=== PATIENT | male | born 1945 | race Caucasian/White ===

== ENCOUNTER 2017-06-27 04:46 | Observation (INO) | payer MEDICARE, OTHER ==
[~2017-06-27] VITALS: Ht 177.8 cm; Wt 85.0 kg
[~2017-06-27 04:46] MED LIST: ACET325S8 PO; ASPI325T PO; FERR324T4 PO; MELA5CAP2 PO; NORV5TAB PO; PRAV40TA PO; PROT40TA PO; QUET50TA PO; TAMS0.4C67 PO; VENL75TA91 PO; VENL75XR PO; [UNRECOGNIZED DRUG - CODE] PO
[2017-06-27 05:07] VITALS: BP 105/71; PULSE 72; RESP 14; TEMP 98.5; O2SAT 96
--- NOTE | 2017-06-27 05:25 | PD ---
HPI Chief Complaint: Chest Pain Time Seen by Provider: 05:21 Travel History International Travel<30 days: No Contact w/Intl Traveler<30days: No Traveled to known affect area: No History of Present Illness HPI Patient is a 71-year-old male who lives in a [facility]. He says today he around 6 in the evening he went walking developed a sharp stabbing pain in his subxiphoid substernal area. It did not radiate he came back to the [facility] they gave him Tums and a sublingual nitroglycerin the pain went away temporarily. Then the return 1 more time and he took another sublingual nitroglycerin with temporary relief once again then he went to sleep and woke same pain this time it was a squeezing central left-sided pain I moments called he was given's 2 baby aspirin at the [facility] and then another 2 baby aspirin in the EMS and sublingual nitroglycerin en route. He arrives pain-free blood pressure is 105/60 heart rate is 92 first EKG is normal sinus rhythm patient is completely pain-free all his symptoms began 9 hours prior to arrival but it was coming and going over the last 9 hours PFS Past Medical History Arthritis: Yes (back) Asthma: No Autoimmune Disease: No Anxiety: Yes Depression: Yes Heart Rhythm Problems: No Cancer: No Cardiac Catheterization: Yes Cardiovascular Problems: No High Cholesterol: No Chemotherapy: No Chest Pain: No Congestive Heart Failure: No COPD: No Cerebrovascular Accident: Yes Diabetes: No Diminished Hearing: No Endocrine: No Gastrointestinal Disorders: Yes GERD: Yes (GERD) Genitourinary: No Hiatal Hernia: No Hypertension: Yes Immune Disorder: No Implanted Vascular Access Dvce: No Kidney Stones: No Musculoskeletal: No Neurologic: Yes Reproductive: No Respiratory: No Migraines: No Myocardial Infarction: Yes Radiation Therapy: No Renal Failure: No Seizures: No Sickle Cell Disease: No Sleep Apnea: No Thyroid Disease: No Ulcer: No Tetanus Vaccination: Unknown Influenza Vaccination: Yes Past Surgical History Abdominal Surgery: Yes (appendectomy) AICD: No Appendectomy: Yes Arteriovenous Shunt: No Cardiac Surgery: No Ear Surgery: No Endocrine Surgery: No Eye Surgery: No Genitourinary Surgery: No Gynecologic Surgery: No Insulin Pump: No Joint Replacement: No Neurologic Surgery: No Oral Surgery: No Pacemaker: No Thoracic Surgery: No Tonsillectomy: Yes Other Surgery: Yes Social History Alcohol Use: No Tobacco Use: No Substance Use: No Allergies-Medications (Allergen,Severity, Reaction): Coded Allergies: No Known Allergies (Unverified Allergy, Unknown, 06/27/17) Reported Meds & Prescriptions Reported Meds & Active Scripts Active Reported Seroquel (Quetiapine Fumarate) 100 Mg Tab 100 Mg PO HS Xanax (Alprazolam) 0.25 Mg Tab 0.25 Mg PO BID PRN Effexor (Venlafaxine HCl) 75 Mg Tab 150 Mg PO Q12H Tramadol (Tramadol HCl) 50 Mg Tab 50 Mg PO Q8H PRN Flomax (Tamsulosin HCl) 0.4 Mg Cap 0.4 Mg PO HS Seroquel (Quetiapine Fumarate) 25 Mg Tab 25 Mg PO DAILY Pravastatin 40 Mg Tab 40 Mg PO DAILY Ditropan (Oxybutynin Chloride) 5 Mg Tab 5 Mg PO Q12HR Omeprazole 20 Mg Tab 20 Mg PO DAILY Meloxicam 7.5 Mg Tab 7.5 Mg PO BID Finasteride 5 Mg Tab 5 Mg PO DAILY Do not crush. Ferrous Sulfate 325 Mg (65 Mg Iron) Tablet 325 Mg PO BIDPC Docusate Sodium 100 Mg Cap 100 Mg PO DAILY Tums (Calcium Carbonate (Antacid)) 500 Mg Chew 1,500 Mg CHEW TIDAC PRN Aspirin 325 Mg Tab 325 Mg PO DAILY Amlodipine (Amlodipine Besylate) 5 Mg Tab 5 Mg PO DAILY Review of Systems Except as stated in HPI: all other systems reviewed are Neg Cardiovascular: Positive: Chest Pain or Discomfort Physical Exam Narrative GENERAL: alert ox3 good historian no pain initial exam SKIN: Warm and dry. HEAD: Atraumatic. Normocephalic. EYES: Pupils equal and round. No scleral icterus. No injection or drainage. ENT: No nasal bleeding or discharge. Mucous membranes pink and moist. NECK: Trachea midline. No JVD. CARDIOVASCULAR: Regular rate and rhythm. RESPIRATORY: No accessory muscle use. Clear to auscultation. Breath sounds equal bilaterally. GASTROINTESTINAL: Abdomen soft, non-tender, nondistended. Hepatic and splenic margins not palpable. MUSCULOSKELETAL: Extremities without clubbing, cyanosis, or edema. No obvious deformities. NEUROLOGICAL: Awake and alert. No obvious cranial nerve deficits. Motor grossly within normal limits. Five out of 5 muscle strength in the arms and legs. Normal speech. PSYCHIATRIC: Appropriate mood and affect; insight and judgment normal. Data Data Last Documented VS Vital Signs Date Time Temp Pulse Resp B/P (MAP) Pulse Ox O2 Delivery O2 Flow Rate FiO2 06/27/17 05:07 98.5 72 14 105/71 (82) 96 Orders Orders Complete Blood Count With Diff (06/27/17 05:21) Comprehensive Metabolic Panel (06/27/17 05:21) Troponin I (06/27/17 05:21) Lipase (06/27/17 05:21) Chest, Single Ap (06/27/17 ) Admit Order (Ed Use Only) (06/27/17 06:37) Labs Laboratory Tests Test 06/27/17 05:15 White Blood Count 7.2 TH/MM3 Red Blood Count 4.32 MIL/MM3 Hemoglobin 12.8 GM/DL Hematocrit 38.1 % Mean Corpuscular Volume 88.1 FL Mean Corpuscular Hemoglobin 29.6 PG Mean Corpuscular Hemoglobin Concent 33.6 % Red Cell Distribution Width 14.3 % Platelet Count 244 TH/MM3 Mean Platelet Volume 7.1 FL Neutrophils (%) (Auto) 53.5 % Lymphocytes (%) (Auto) 27.8 % Monocytes (%) (Auto) 12.5 % Eosinophils (%) (Auto) 5.5 % Basophils (%) (Auto) 0.7 % Neutrophils # (Auto) 3.9 TH/MM3 Lymphocytes # (Auto) 2.0 TH/MM3 Monocytes # (Auto) 0.9 TH/MM3 Eosinophils # (Auto) 0.4 TH/MM3 Basophils # (Auto) 0.1 TH/MM3 CBC Comment DIFF FINAL Differential Comment Blood Urea Nitrogen 19 MG/DL Creatinine 1.25 MG/DL Random Glucose 76 MG/DL Total Protein 7.2 GM/DL Albumin 3.9 GM/DL Calcium Level 9.1 MG/DL Alkaline Phosphatase 85 U/L Aspartate Amino Transf (AST/SGOT) 19 U/L Alanine Aminotransferase (ALT/SGPT) 21 U/L Total Bilirubin 0.3 MG/DL Sodium Level 137 MEQ/L Potassium Level 3.8 MEQ/L Chloride Level 103 MEQ/L Carbon Dioxide Level 28.0 MEQ/L Anion Gap 6 MEQ/L Estimat Glomerular Filtration Rate 57 ML/MIN Troponin I LESS THAN 0.02 NG/ML Lipase 51 U/L [facility] Medical Decision Making Medical Screen Exam Complete: Yes Emergency Medical Condition: Yes Differential Diagnosis pt pain could be exertional ischemic angina , vs gerd vs esophogeal spasm vs muscle starin vs PNA vs pericarditis . other Narrative Course EKG no ischemic findings NSR and trop negative , RISK factors and Hx indicate Chest pain center admit. ASPIRIN given po Diagnosis Primary Impression: Chest pain Qualified Codes: R07.9 - Chest pain, unspecified Barney Bhagat MD Jun 27, 2017 05:25
[2017-06-27] MEDS ORDERED: MELO7.5T27 PO (06:01)
[2017-06-27] MEDS ORDERED: TRAM50TA PO (06:01)
[2017-06-27] MEDS ORDERED: TUMS500C CHEW (06:01)
[2017-06-27] MEDS ORDERED: PRAV40TA2 PO (06:01)
[2017-06-27] MEDS ORDERED: FINA5TAB2 PO (06:01)
[2017-06-27] MEDS ORDERED: TAMS5CAP PO (06:01)
[2017-06-27] MEDS ORDERED: SERO100T PO (06:01)
[2017-06-27] MEDS ORDERED: ASPI-183 PO (06:01)
[2017-06-27] MEDS ORDERED: OMEP20TA93 PO (06:01)
[2017-06-27] MEDS ORDERED: ALPR.25 PO (06:01)
[2017-06-27] MEDS ORDERED: DOCU100C15 PO (06:01)
[2017-06-27] MEDS ORDERED: SERO25TA PO (06:01)
[2017-06-27] MEDS ORDERED: OXYB5TAB8 PO (06:01)
[2017-06-27] MEDS ORDERED: VENL75TA PO (06:01)
[2017-06-27] MEDS ORDERED: AMLO5TAB2 PO (06:01)
[2017-06-27] MEDS ORDERED: FERR325T18 PO (06:01)
[2017-06-27 06:15] LABS: AUTOMATED NEUTROPHIL # 3.9 TH/MM3 (1.8-7.7); BASOPHIL # 0.1 TH/MM3 (0-0.2); BASOPHIL % 0.7 % (0.0-2.0); EOSINOPHIL # 0.4 TH/MM3 (0-0.4); EOSINOPHIL % 5.5 % (0.0-4.0); HEMATOCRIT 38.1 % (39.0-51.0); HEMOGLOBIN 12.8 GM/DL (13.0-17.0); LYMPH % 27.8 % (9.0-44.0); MEAN CELL VOLUME 88.1 FL (80.0-100.0); MEAN CORPUSCULAR HEMOGLOBIN 29.6 PG (27.0-34.0); MEAN CORPUSCULAR HGB CONC 33.6 % (32.0-36.0); MEAN PLATELET VOLUME 7.1 FL (7.0-11.0); MONO % 12.5 % (0.0-8.0); MONOCYTE # 0.9 TH/MM3 (0-0.9); NEUT % 53.5 % (16.0-70.0); PLATELET COUNT 244 TH/MM3 (150-450); RED BLOOD COUNT 4.32 MIL/MM3 (4.50-5.90); RED CELL DISTRIBUTION WIDTH 14.3 % (11.6-17.2); WHITE BLOOD COUNT 7.2 TH/MM3 (4.0-11.0)
--- NOTE | 2017-06-27 06:16 | RADRPT ---
EXAM DATE/TIME: 06/27/2017 05:41 [facility] COMPARISON: CHEST SINGLE AP, March 07, 2016, 9:10. INDICATIONS : Sudden onset chest pain MEDICAL HISTORY : Myocardial infarction. CVA SURGICAL HISTORY : Appendectomy. Tonsillectomy. ENCOUNTER: Initial ACUITY: 1 day PAIN SCORE: 7/10 LOCATION: Bilateral chest FINDINGS: A single view of the chest demonstrates the lungs to be symmetrically aerated without evidence of mas s, infiltrate or effusion. The cardiomediastinal contours are unremarkable. Osseous structures are intact. CONCLUSION: No acute disease. Alpesh Mendez MD on June 27, 2017 at 6:13 Board Certified Radiologist. This report was verified electronically.
[2017-06-27 06:29] LABS: ALBUMIN 3.9 GM/DL (3.4-5.0); AST (GOT) 19 U/L (15-37); BLOOD UREA NITROGEN 19 MG/DL (7-18); CALCIUM 9.1 MG/DL (8.5-10.1); CHLORIDE 103 MEQ/L (98-107); CREATININE 1.25 MG/DL (0.60-1.30); GLOMERULAR FILTRATION RATE 57 ML/MIN (>89); GLUCOSE,RANDOM 76 MG/DL (74-106); LIPASE 51 U/L (73-393); SODIUM (NA) 137 MEQ/L (136-145)
[2017-06-27 06:31] LABS: ALT (GPT) 21 U/L (12-78)
[2017-06-27 06:34] LABS: ALKALINE PHOSPHATASE 85 U/L (45-117); TOTAL BILIRUBIN ADULT 0.3 MG/DL (0.2-1.0); TOTAL PROTEIN 7.2 GM/DL (6.4-8.2); TROPONIN I LESS THAN 0.02 NG/ML (0.02-0.05)
[2017-06-27 06:44] VITALS: O2SAT 96
[2017-06-27] MEDS ORDERED: SODIUM CHLORIDE 0.9% FLUSH 10 ML FLUSH IV FLUSH PRN (06:45)
[2017-06-27] MEDS ORDERED: ACETAMINOPHEN 500 MG CPLT PO PRN (07:30)
[2017-06-27] MEDS ORDERED: ONDANSETRON HCL 4 MG/2 ML VIAL IV PUSH PRN (07:30)
[2017-06-27] MEDS ORDERED: NITROGLYCERIN 0.4 MG SL 25 TABS/BTL SL PRN (07:30)
[2017-06-27 08:48] VITALS: BP 110/68; PULSE 91; RESP 18; O2SAT 96
[2017-06-27] MEDS ORDERED: ASPIRIN 325 MG TAB PO SCH (09:00)
[2017-06-27] MEDS ORDERED: SODIUM CHLORIDE 0.9% FLUSH 10 ML FLUSH IV FLUSH SCH (09:00)
--- NOTE | 2017-06-27 09:05 | HHI.HP ---
[facility] Primary Care Physician Chris Holman M.D. Chief Complaint Chest pain History of Present Illness 71-year-old male with history of coronary artery disease, past angioplasties x2 , and GERD presents to ER for further evaluation of chest pain. Onset 1 week ago. Location substernal. Character "intense, sharp pain." Severity moderate, however last night episode prior to coming to ER severe in severity. No radiation of pain. Duration 10 minutes. Associated symptoms of mild dyspnea. Denied nausea, vomiting, or diaphoresis. Taking a deep breath did not make pain better or worse. Precipitating factors exertion. Relieving factors rest. Total 2 episodes yesterday and one episode daily for past week. Denies discomfort being similar to past cardiac discomfort or being similar to acid reflux. Currently he is chest pain free. Tried Tums with "some relief." Nitroglycerin SL helped "within one minute." Resides in an assisted living faculty. States he alerted the front services agent about chest pain and called [facility]. Endorses not following with a chucker as instructed last year after angioplasty because "I was feeling pretty good." Review of Systems General: No fatigue,weakness, fever, chills, recent illness, or change in appetite. Has been in his general state of health. HEENT: No , no vision changes, no nasal congestion or drainage, no dysphasia CV: As stated above. No current chest pain or pressure. History of CAD and CVA. RESP: No SOB, cough, wheeze, or recent URI. Former smoker. GI: No nausea, vomiting, bowel changes, diarrhea, constipation, pain, distention , melena, or blood in the stool. No unintentional weight gain or weight loss. History of GERD. Scheduled for EGD next week. : No dysuria, urgency, frequency. History of BPH, taking Flomax. EXT: No lower leg edema, no paraesthesias MS: No discomfort, change in ROM, injury, or recent trauma. NEURO: No difficulty with balance, LOC, motor/sensory deficits PSYCH: History of depression, no anxiety or suicidal ideation SKIN: No rashes, no concerning lesions Past Family Social History Allergies: Coded Allergies: No Known Allergies (Unverified Allergy, Unknown, 06/27/17) Past Medical History Coronary artery disease, 2 SD, CVA, BPH, depression, GERD, hyperlipidemia Past Surgical History Appendectomy, x2 cardiac angioplasties Reported Medications Reported Meds & Active Scripts Active Reported Seroquel (Quetiapine Fumarate) 100 Mg Tab 100 Mg PO HS Xanax (Alprazolam) 0.25 Mg Tab 0.25 Mg PO BID PRN Effexor (Venlafaxine HCl) 75 Mg Tab 150 Mg PO Q12H Tramadol (Tramadol HCl) 50 Mg Tab 50 Mg PO Q8H PRN Flomax (Tamsulosin HCl) 0.4 Mg Cap 0.4 Mg PO HS Seroquel (Quetiapine Fumarate) 25 Mg Tab 25 Mg PO DAILY Pravastatin 40 Mg Tab 40 Mg PO DAILY Ditropan (Oxybutynin Chloride) 5 Mg Tab 5 Mg PO Q12HR Omeprazole 20 Mg Tab 20 Mg PO DAILY Meloxicam 7.5 Mg Tab 7.5 Mg PO BID Finasteride 5 Mg Tab 5 Mg PO DAILY Do not crush. Ferrous Sulfate 325 Mg (65 Mg Iron) Tablet 325 Mg PO BIDPC Docusate Sodium 100 Mg Cap 100 Mg PO DAILY Tums (Calcium Carbonate (Antacid)) 500 Mg Chew 1,500 Mg CHEW TIDAC PRN Aspirin 325 Mg Tab 325 Mg PO DAILY Amlodipine (Amlodipine Besylate) 5 Mg Tab 5 Mg PO DAILY Active Ordered Medications Current Medications Medications (Trade) Dose Ordered Sig/[place] Route Start Time Stop Time Status Last Admin (NS Flush) 2 ml UNSCH PRN IV FLUSH 06/27/17 06:45 (NS Flush) 2 ml BID IV FLUSH 06/27/17 09:00 (Tylenol) 500 mg Q4H PRN PO 06/27/17 07:30 (Zofran Inj) 4 mg Q6H PRN IV PUSH 06/27/17 07:30 (Nitrostat Sl) 0.4 mg Q5M PRN SL 06/27/17 07:30 (Aspirin) 325 mg DAILY PO 06/27/17 09:00 Family History Noncontributory for early onset cardiovascular disease Social History Known coronary artery disease, hypertension, and hyperlipidemia. No known diabetes. Former smoker quitting 20 years ago. Denies any alcohol or illegal drug use. . Endorses an active lifestyle, brisk walking daily. Past cardiac testing No recent cardiac testing. Does not follow with chucker. Cardiac catheterization approx. 1 and 2 years ago, angioplasty during both catheterizations, no stents. Physical Exam Vital Signs Vital Signs Date Time Temp Pulse Resp B/P (MAP) Pulse Ox O2 Delivery O2 Flow Rate FiO2 06/27/17 08:48 91 18 110/68 (82) 96 Room Air 06/27/17 06:44 96 06/27/17 05:07 98.5 72 14 105/71 (82) 96 Physical Exam GENERAL: Alert WN, WD, NAD, pleasant, male HEAD: NC, AT EYES: Sclera clear, conjunctiva without injection, pupils equal and round ENT: Mucous membranes pink and moist CV: RRR, without murmur, rub, gallop, no JVD, S1-S2 no S3-S4. No carotid bruits. Chest wall nontender with palpation. RESP: Clear lungs throughout bilateral, no crackles, wheeze, rhonchi, symmetrical chest rise, nonlabored, able to speak in full sentences ABD: Soft, NT, ND, no masses, positive bowel tones EXT: Pulses +24, no dependent edema MS: Normal tone 4 extremities, no obvious deformities, full range of motion NEURO: CN II through CN XII grossly intact, motor strength 5/5 PSYCH: A+O 3, pleasant affect, appropriate speech, mood, insight and judgment SKIN: Normal turgor, normal texture, no lesions, no rashes, brisk cap refill, even hair distribution Laboratory Laboratory Tests Test 06/27/17 05:15 White Blood Count 7.2 Red Blood Count 4.32 Hemoglobin 12.8 Hematocrit 38.1 Mean Corpuscular Volume 88.1 Mean Corpuscular Hemoglobin 29.6 Mean Corpuscular Hemoglobin Concent 33.6 Red Cell Distribution Width 14.3 Platelet Count 244 Mean Platelet Volume 7.1 Neutrophils (%) (Auto) 53.5 Lymphocytes (%) (Auto) 27.8 Monocytes (%) (Auto) 12.5 Eosinophils (%) (Auto) 5.5 Basophils (%) (Auto) 0.7 Neutrophils # (Auto) 3.9 Lymphocytes # (Auto) 2.0 Monocytes # (Auto) 0.9 Eosinophils # (Auto) 0.4 Basophils # (Auto) 0.1 CBC Comment DIFF FINAL Differential Comment Blood Urea Nitrogen 19 Creatinine 1.25 Random Glucose 76 Total Protein 7.2 Albumin 3.9 Calcium Level 9.1 Alkaline Phosphatase 85 Aspartate Amino Transf (AST/SGOT) 19 Alanine Aminotransferase (ALT/SGPT) 21 Total Bilirubin 0.3 Sodium Level 137 Potassium Level 3.8 Chloride Level 103 Carbon Dioxide Level 28.0 Anion Gap 6 Estimat Glomerular Filtration Rate 57 Troponin I LESS THAN 0.02 Lipase 51 Result Diagram: 06/27/17 0515 06/27/17 0515 Imaging Last 48 hours Impressions Chest X-Ray 06/27/17 0000 Signed Impressions: Service Date/Time: Tuesday, June 27, 2017 05:41 - CONCLUSION: No acute disease. Alpesh Mendez MD Course EKG Sinus rhythm, left axis deviation, incomplete right bundle branch block, no ST changes Caprini VTE Risk Assessment Caprini VTE Risk Assessment: Mod/High Risk (score >= 2) Caprini Risk Assessment Model Point Value = 1 Point Value = 2 Point Value = 3 Point Value = 5 Age 41-60 Minor surgery BMI > 25 kg/m2 Swollen legs Varicose veins or History of unexplained or recurrent spontaneous Oral contraceptives or hormone replacement Sepsis (< 1 month) Serious lung disease, including pneumonia (< 1 month) Abnormal pulmonary function Acute myocardial infarction Congestive heart failure (< 1 month) History of inflammatory bowel disease Medical patient at bed rest Age 61-74 Arthroscopic surgery Major open surgery (> 45 min) Laparoscopic surgery (> 45 min) Malignancy Confined to bed (> 72 hours) Immobilizing plaster cast Central venous access Age >= 75 History of VTE Family history of VTE Factor V Leiden Prothrombin [id number] Lupus anticoagulant Anticardiolipin antibodies Elevated serum homocysteine Heparin-induced thrombocytopenia Other congenital or acquired thrombophilia Stroke (< 1 month) Elective arthroplasty Hip, pelvis, or leg fracture Acute spinal cord injury (< 1 month) Prophylaxis Regimen Total Risk Factor Score Risk Level Prophylaxis Regimen 0-1 Low Early ambulation 2 Moderate Order ONE of the following: *Sequential Compression Device (SCD) *Heparin 5000 units SQ BID 3-4 Higher Order ONE of the following medications: *Heparin 5000 units SQ TID *Enoxaparin/Lovenox 40 mg SQ daily (WT < 150 kg, CrCl > 30 mL/min) *Enoxaparin/Lovenox 30 mg SQ daily (WT < 150 kg, CrCl > 10-29 mL/min) *Enoxaparin/Lovenox 30 mg SQ BID (WT < 150 kg, CrCl > 30 mL/min) AND/OR *Sequential Compression Device (SCD) 5 or more Highest Order ONE of the following medications: *Heparin 5000 units SQ TID (Preferred with Epidurals) *Enoxaparin/Lovenox 40 mg SQ daily (WT < 150 kg, CrCl > 30 mL/min) *Enoxaparin/Lovenox 30 mg SQ daily (WT < 150 kg, CrCl > 10-29 mL/min) *Enoxaparin/Lovenox 30 mg SQ BID (WT < 150 kg, CrCl > 30 mL/min) AND *Sequential Compression Device (SCD) Assessment and Plan Assessment and Plan #1 Chest pain-admitted to chest pain center. Rule out with 3 sets of ekgs and cardiac enzymes. Seen and evaluated by Dr. Eric Garcia. Proceed with chemical stress testing after being ruled out this afternoon. If unremarkable, plan to discharge home with follow up with PCP. Patient agreeable to plan of care. #2 History of CAD-obtain cardiac catheterization records from [facility] [place] , strongly encouraged regardless of this admission testing he needs to establish with a chucker. Verbalized understanding. Continue Pravachol, aspirin, and amlodipine. #3 GERD-continue Protonix, encouraged him to keep scheduled EGD appointment next week #4 History of depression-continue Effexor and quetiapine Lilliam Vu Jun 27, 2017 09:05
[2017-06-27 10:13] LABS: TROPONIN I LESS THAN 0.02 NG/ML (0.02-0.05)
[2017-06-27 10:44] VITALS: BP 138/71; PULSE 71
[2017-06-27] MEDS ORDERED: VENLAFAXINE HCL XR 75 MG CAP PO SCH (11:00)
[2017-06-27] MEDS ORDERED: PANTOPRAZOLE SOD 20 MG DELAYED RELEASE TAB PO SCH (12:00)
[2017-06-27 12:18] LABS: TROPONIN I LESS THAN 0.02 NG/ML (0.02-0.05)
[2017-06-27 13:00] VITALS: BP 155/100; PULSE 73; RESP 18; TEMP 96.6; O2SAT 95
--- NOTE | 2017-06-27 13:35 | EKG ---
Date Performed: 06/27/2017 Time Performed: 09:21:02 PTAGE: 71 years EKG: Sinus rhythm WITH FIRST DEGREE AV BLOCK WITH OCCASIONAL SUPRAVENTRICULAR PREMATURE COMPLEXES INCOMPLETE RIGHT BUN DLE BRANCH BLOCK ABNORMAL ECG PREVIOUS TRACING : 06/27/2017 04.58 Since previous tracing, no significant change noted DOCTOR: Eric Garcia Interpretating Date/Time 06/27/2017 13:33:13
--- NOTE | 2017-06-27 13:38 | EKG ---
Date Performed: 06/27/2017 Time Performed: 04:58:52 PTAGE: 71 years EKG: Sinus rhythm WITH FIRST DEGREE AV BLOCK WITH OCCASIONAL VENTRICULAR PREMATURE COMPLEXES MARKED LEFT AXIS DEVIATIO N INCOMPLETE RIGHT BUNDLE BRANCH BLOCK ABNORMAL ECG PREVIOUS TRACING : 03/07/2016 09.39 Since previous tracing, no significant change noted DOCTOR: Eric Garcia Interpretating Date/Time 06/27/2017 13:37:00
--- NOTE | 2017-06-27 13:49 | EKG ---
Date Performed: 06/27/2017 Time Performed: 11:29:51 PTAGE: 71 years EKG: Sinus rhythm WITH FIRST DEGREE AV BLOCK MARKED LEFT AXIS DEVIATION INCOMPLETE RIGHT BUNDLE BRANCH BLOCK ABNORMAL ECG PREVIOUS TRACING : 06/27/2017 09.21 Since previous tracing, no significant change noted DOCTOR: Eric Garcia Interpretating Date/Time 06/27/2017 13:48:03
[2017-06-27] MEDS ORDERED: REGADENOSON INJ 0.4 MG/5 ML SYR ONE (14:12)
--- NOTE | 2017-06-27 15:16 | RADRPT ---
EXAM DATE/TIME: 06/27/2017 13:57 [facility] COMPARISON: No previous studies available for comparison. INDICATIONS : Mid chest pain for one week. Angina. Myocardial infarction. DOSE: 26.5 mCi Tc99m Myoview at stress. 8.7 mCi Tc99m Myoview at rest. 0.4 mg Lexiscan STRESS SYMPTOMS: None. EJECTION FRACTION: > 70% MEDICAL HISTORY : Hypertension. Cardiovascular disease SURGICAL HISTORY : Tonsillectomy. ENCOUNTER: Initial ACUITY: 1 day PAIN SCALE: 3/10 LOCATION: Bilateral chest TECHNIQUE: The patient underwent pharmacologic stress with infusion of prescribed dose. Continuous ECG tracing was monitored during stress. Gated SPECT imaging was performed after stress and conventional SPECT i maging was performed at rest. The examination was performed on a SPECT/CT scanner, both attenuation and non-corrected datasets were reviewed. FINDINGS: DISTRIBUTION: The maximum perfused segment at stress is in the septal wall. PERFUSION STUDY: The pattern of perfusion at stress is within normal limits. GATED STUDY: There is intact wall motion and thickening without hypokinetic or dyskinetic segments. CONCLUSION: 1. Unremarkable myocardial perfusion exam RISK CATEGORY: Low Leo Copeland MD on June 27, 2017 at 15:12 Board Certified Radiologist. This report was verified electronically.
[2017-06-27 15:19] VITALS: PULSE 81
--- NOTE | 2017-06-27 15:29 | HHI.DCPOC ---
Discharge Care Plan Diagnosis: (1) Atypical chest pain (2) Hx of coronary artery disease Goals to Promote Your Health * To prevent worsening of your condition and complications * To maintain your health at the optimal level Directions to Meet Your Goals Take your medications as prescribed Follow your dietary instruction Follow activity as directed Keep your appointments as scheduled Take your immunizations and boosters as scheduled If your symptoms worsen call your PCP, if no PCP go to Urgent Care Center or Emergency Room Smoking is Dangerous to Your Health. Avoid second hand smoke Call the 24-hour hour crisis hotline for domestic abuse at Lilliam Vu Jun 27, 2017 15:29
[2017-06-28] MEDS ORDERED: amLODIPine BESYLATE 5 MG TAB PO SCH (09:00)
--- NOTE | 2017-06-28 15:35 | TR ---
Date Performed: 06/27/2017 Time Performed: 14:18:21 DOCTOR: Justice Sexton DRUG LIST: CLINICAL HISTORY: REASON FOR TEST: REASON FOR ENDING: OBSERVATION: CONCLUSION: Lexiscan stress test was performed under standard four minute protocol. Radionuclid e was injected one minute prior to ending the test. No electrocardiographic abormalities were present to suggest ischemia. Nuclear imaging and interpretation are pending. COMMENTS:
== END 2017-06-27 17:34 | disposition home or self-care (01) ==
LOC: NEPC 04:46 → NEDA 06:38 → NEDH 11:16 → NEPFCDU 12:52
DX: R07.9 Chest pain, unspecified (principal); I25.10 Atherosclerotic heart disease of native coronary artery without angina pectoris; I10 Essential (primary) hypertension; I45.10 Unspecified right bundle-branch block; E78.5 Hyperlipidemia, unspecified; I25.2 Old myocardial infarction; K21.9 Gastro-esophageal reflux disease without esophagitis; N40.0 Benign prostatic hyperplasia without lower urinary tract symptoms; Z87.891 Personal history of nicotine dependence; Z86.73 Personal history of transient ischemic attack (TIA), and cerebral infarction without residual deficits
CPT/HCPCS: 71045; 78452; 80053; 82550; 83690; 84484; 85025; 93005; 93017; 99285; A9502; G0378; J2785

== ENCOUNTER 2017-08-24 03:52 | Emergency (ER) | payer MEDICARE, OTHER ==
[~2017-08-24 03:52] MED LIST changes: -ACET325S8 PO; +ALPR.25 PO; +AMLO5TAB2 PO; +ASPI-183 PO; -ASPI325T PO; +DOCU100C15 PO; -FERR324T4 PO; +FERR325T18 PO; +FINA5TAB2 PO; -MELA5CAP2 PO; +MELO7.5T27 PO; -NORV5TAB PO; +OMEP20TA93 PO; +OXYB5TAB8 PO; -PRAV40TA PO; +PRAV40TA2 PO; -PROT40TA PO; -QUET50TA PO; +SERO100T PO; +SERO25TA PO; -TAMS0.4C67 PO; +TAMS5CAP PO; +TRAM50TA PO; +TUMS500C CHEW; +VENL75TA PO; -VENL75TA91 PO; -VENL75XR PO; -[UNRECOGNIZED DRUG - CODE] PO
[2017-08-24 04:15] VITALS: BP 120/72; PULSE 100; RESP 16; TEMP 98; O2SAT 98
[2017-08-24 05:22] LABS: AUTOMATED NEUTROPHIL # 7.3 TH/MM3 (1.8-7.7); BASOPHIL % 0.2 % (0.0-2.0); HEMATOCRIT 37.8 % (39.0-51.0); HEMOGLOBIN 12.8 GM/DL (13.0-17.0); LYMPH % 5.7 % (9.0-44.0); LYMPHOCYTE # 0.5 TH/MM3 (1.0-4.8); MEAN CELL VOLUME 87.7 FL (80.0-100.0); MEAN CORPUSCULAR HEMOGLOBIN 29.7 PG (27.0-34.0); MEAN CORPUSCULAR HGB CONC 33.8 % (32.0-36.0); MEAN PLATELET VOLUME 7.6 FL (7.0-11.0); MONO % 11.7 % (0.0-8.0); NEUT % 82.4 % (16.0-70.0); PLATELET COUNT 212 TH/MM3 (150-450); RED BLOOD COUNT 4.31 MIL/MM3 (4.50-5.90); RED CELL DISTRIBUTION WIDTH 14.5 % (11.6-17.2); WHITE BLOOD COUNT 8.9 TH/MM3 (4.0-11.0)
[2017-08-24 05:39] LABS: ALT (GPT) 19 U/L (12-78); AST (GOT) 21 U/L (15-37); BICARBONATE 22.6 MEQ/L (21.0-32.0); BLOOD UREA NITROGEN 22 MG/DL (7-18); CALCIUM 9.3 MG/DL (8.5-10.1); CHLORIDE 101 MEQ/L (98-107); GLOMERULAR FILTRATION RATE 50 ML/MIN (>89); GLUCOSE,RANDOM 86 MG/DL (74-106); SODIUM (NA) 136 MEQ/L (136-145)
[2017-08-24 05:49] LABS: ALKALINE PHOSPHATASE 70 U/L (45-117); TOTAL BILIRUBIN ADULT 0.5 MG/DL (0.2-1.0); TOTAL PROTEIN 7.9 GM/DL (6.4-8.2)
[2017-08-24 05:55] LABS: BILIRUBIN, URINE NEG (NEG); BLOOD, URINE SMALL (NEG); GLUCOSE,URINE NEG (NEG); HYALINE CAST, URINE 3 /lpf (RARE); KETONE, URINE 10 mg/dL (NEG); MUCUS URINE FEW /lpf (OCC); NITRITE,URINE NEG (NEG); PH, URINE 5.5 (5.0-8.5); SQUAMOUS EPITHELIAL CELL URINE <1 /hpf (0-5); URINE COLOR YELLOW (YELLW/STRAW); URINE LEUKOCYTE ESTERASE NEG (NEG)
[2017-08-24] MEDS ORDERED: ALUMINUM/MAGNESIUM/SIMETH 30 ML CUP PO ONE ×2 (06:00→11:00)
[2017-08-24] MEDS ORDERED: ONDANSETRON ODT 4 MG TAB PO ONE (06:00)
--- NOTE | 2017-08-24 06:36 | PD ---
HPI Chief Complaint: Psychiatric Symptoms Time Seen by Provider: 04:37 Travel History International Travel<30 days: No Contact w/Intl Traveler<30days: No Traveled to known affect area: No History of Present Illness HPI 71-year-old white male presents emergency department stating that he is feeling depressed and wants to be with his . She had 2 years ago this past week. She had Alzheimer's dementia. The patient states that he is tired of living without her. He admits to feeling suicidal but has no current plan. He does live in a nursing facility. He recently had a endoscopy last week for GERD. He had an episode of nausea with vomiting of mucus this evening. He has had some mild epigastric discomfort. He has requested some Tums. Patient denies any toxic ingestions. No homicidal ideation. Symptoms are moderate. No alleviating factors. Exacerbated by his 's anniversary of her . PFSH Past Medical History Arthritis: Yes (back) Asthma: No Autoimmune Disease: No Anxiety: Yes Depression: Yes Heart Rhythm Problems: No Cancer: No Cardiac Catheterization: Yes Cardiovascular Problems: No High Cholesterol: Yes Chemotherapy: No Chest Pain: No Congestive Heart Failure: No COPD: No Cerebrovascular Accident: Yes Diabetes: No Diminished Hearing: No Endocrine: No Gastrointestinal Disorders: Yes GERD: Yes (GERD) Genitourinary: No Hiatal Hernia: No Hypertension: Yes Immune Disorder: No Implanted Vascular Access Dvce: No Kidney Stones: No Musculoskeletal: No Neurologic: Yes Reproductive: No Respiratory: No Immunizations Current: No Migraines: No Myocardial Infarction: Yes Radiation Therapy: No Renal Failure: No Seizures: No Sickle Cell Disease: No Sleep Apnea: No Thyroid Disease: No Ulcer: No Past Surgical History Abdominal Surgery: Yes (appendectomy) AICD: No Appendectomy: Yes Arteriovenous Shunt: No Cardiac Surgery: No Ear Surgery: No Endocrine Surgery: No Eye Surgery: No Genitourinary Surgery: No Gynecologic Surgery: No Insulin Pump: No Joint Replacement: No Neurologic Surgery: No Oral Surgery: No Pacemaker: No Thoracic Surgery: No Tonsillectomy: Yes Other Surgery: Yes Social History Alcohol Use: No Tobacco Use: No Substance Use: No Allergies-Medications (Allergen,Severity, Reaction): Coded Allergies: No Known Allergies (Unverified Allergy, Unknown, 08/24/17) Reported Meds & Prescriptions Reported Meds & Active Scripts Active Reported Seroquel (Quetiapine Fumarate) 100 Mg Tab 100 Mg PO HS Xanax (Alprazolam) 0.25 Mg Tab 0.25 Mg PO BID PRN Effexor (Venlafaxine HCl) 75 Mg Tab 150 Mg PO Q12H Tramadol (Tramadol HCl) 50 Mg Tab 50 Mg PO Q8H PRN Flomax (Tamsulosin HCl) 0.4 Mg Cap 0.4 Mg PO HS Seroquel (Quetiapine Fumarate) 25 Mg Tab 25 Mg PO DAILY Pravastatin 40 Mg Tab 40 Mg PO DAILY Ditropan (Oxybutynin Chloride) 5 Mg Tab 5 Mg PO Q12HR Omeprazole 20 Mg Tab 20 Mg PO DAILY Meloxicam 7.5 Mg Tab 7.5 Mg PO BID Finasteride 5 Mg Tab 5 Mg PO DAILY Do not crush. Ferrous Sulfate 325 Mg (65 Mg Iron) Tablet 325 Mg PO BIDPC Docusate Sodium 100 Mg Cap 100 Mg PO DAILY Tums (Calcium Carbonate (Antacid)) 500 Mg Chew 1,500 Mg CHEW TIDAC PRN Aspirin 325 Mg Tab 325 Mg PO DAILY Amlodipine (Amlodipine Besylate) 5 Mg Tab 5 Mg PO DAILY Review of Systems General / Constitutional: No: Fever Eyes: No: Visual changes HENT: No: Headaches Cardiovascular: No: Chest Pain or Discomfort Respiratory: No: Shortness of Breath Gastrointestinal: Positive: Nausea, Vomiting, Abdominal Pain (Epigastric tenderness) Genitourinary: No: Dysuria Musculoskeletal: No: Pain Skin: No Rash Neurologic: Positive: Focal Abnormalities (Left upper extremity weakness), Other (Chronic gait disturbance uses a walker.), No: Weakness Psychiatric: Positive: Depression, Suicidal Ideations, Mood Disorder, No: Anxiety, Disorder of Thought, Substance Abuse, Homicidal Ideation Endocrine: No: Polydipsia Hematologic/Lymphatic: No: Easy Bruising Physical Exam Narrative GENERAL: Well-nourished, well-developed patient. SKIN: Warm and dry. HEAD: Normocephalic and atraumatic. EYES: No scleral icterus. No injection or drainage. ENT: No nasal drainage noted. Mucous membranes pink. Airway patent. NECK: Supple, trachea midline. Moves head freely without obvious discomfort. CARDIOVASCULAR: Regular rate and rhythm without murmurs, gallops, or rubs. RESPIRATORY: Breath sounds equal bilaterally. No accessory muscle use. GASTROINTESTINAL: Abdomen soft, non-tender, nondistended. EXTREMITIES: No cyanosis or edema. BACK: Nontender without obvious deformity. No CVA tenderness. NEURO: Patient is alert and oriented. Patient has mild left upper extremity weakness. Patient has some generalized lower extremity weakness without focality. Right upper extremity is within limits. Normal speech. PSYCH: No delusions. No auditory or visual hallucinations. Data Data Last Documented VS Vital Signs Date Time Temp Pulse Resp B/P (MAP) Pulse Ox O2 Delivery O2 Flow Rate FiO2 08/24/17 04:15 98.0 100 16 120/72 (88) 98 Orders Orders Complete Blood Count With Diff (08/24/17 04:37) Comprehensive Metabolic Panel (08/24/17 04:37) Thyroid Stimulating Hormone (08/24/17 04:37) Urinalysis - C+S If Indicated (08/24/17 04:37) Psych Screen (08/24/17 04:37) Drug Screen, Random Urine (08/24/17 04:37) Alcohol (Ethanol) (08/24/17 04:37) Lipase (08/24/17 04:46) Al-Mag Hy-Si 40-40-4 Mg/Ml Liq (Mag-Al P (08/24/17 06:00) Ondansetron Odt (Zofran Odt) (08/24/17 06:00) Labs Laboratory Tests Test 08/24/17 04:45 08/24/17 05:15 White Blood Count 8.9 TH/MM3 Red Blood Count 4.31 MIL/MM3 Hemoglobin 12.8 GM/DL Hematocrit 37.8 % Mean Corpuscular Volume 87.7 FL Mean Corpuscular Hemoglobin 29.7 PG Mean Corpuscular Hemoglobin Concent 33.8 % Red Cell Distribution Width 14.5 % Platelet Count 212 TH/MM3 Mean Platelet Volume 7.6 FL Neutrophils (%) (Auto) 82.4 % Lymphocytes (%) (Auto) 5.7 % Monocytes (%) (Auto) 11.7 % Eosinophils (%) (Auto) 0.0 % Basophils (%) (Auto) 0.2 % Neutrophils # (Auto) 7.3 TH/MM3 Lymphocytes # (Auto) 0.5 TH/MM3 Monocytes # (Auto) 1.0 TH/MM3 Eosinophils # (Auto) 0.0 TH/MM3 Basophils # (Auto) 0.0 TH/MM3 CBC Comment DIFF FINAL Differential Comment Blood Urea Nitrogen 22 MG/DL Creatinine 1.40 MG/DL Random Glucose 86 MG/DL Total Protein 7.9 GM/DL Albumin 4.0 GM/DL Calcium Level 9.3 MG/DL Alkaline Phosphatase 70 U/L Aspartate Amino Transf (AST/SGOT) 21 U/L Alanine Aminotransferase (ALT/SGPT) 19 U/L Total Bilirubin 0.5 MG/DL Sodium Level 136 MEQ/L Potassium Level 4.2 MEQ/L Chloride Level 101 MEQ/L Carbon Dioxide Level 22.6 MEQ/L Anion Gap 12 MEQ/L Estimat Glomerular Filtration Rate 50 ML/MIN Lipase 43 U/L Thyroid Stimulating Hormone 3rd Gen 0.936 uIU/ML Ethyl Alcohol Level LESS THAN 3 MG/DL Urine Color YELLOW Urine Turbidity CLEAR Urine pH 5.5 Urine Specific [place] 1.036 Urine Protein 100 mg/dL Urine Glucose (UA) NEG mg/dL Urine Ketones 10 mg/dL Urine Occult Blood SMALL Urine Nitrite NEG Urine Bilirubin NEG Urine Urobilinogen 2.0 MG/DL Urine Leukocyte Esterase NEG Urine RBC 1 /hpf Urine WBC LESS THAN 1 /hpf Urine Squamous Epithelial Cells <1 /hpf Urine Hyaline Casts 3 /lpf Urine Mucus FEW /lpf Microscopic Urinalysis Comment CULT NOT INDICATED Urine Opiates Screen NEG Urine Barbiturates Screen NEG Urine Amphetamines Screen NEG Urine Benzodiazepines Screen POS Urine Cocaine Screen NEG Urine Cannabinoids Screen NEG MDM Medical Decision Making Medical Screen Exam Complete: Yes Emergency Medical Condition: Yes Medical Record Reviewed: Yes Interpretation(s) Laboratory Tests Test 08/24/17 04:45 08/24/17 05:15 White Blood Count 8.9 TH/MM3 Red Blood Count 4.31 MIL/MM3 Hemoglobin 12.8 GM/DL Hematocrit 37.8 % Mean Corpuscular Volume 87.7 FL Mean Corpuscular Hemoglobin 29.7 PG Mean Corpuscular Hemoglobin Concent 33.8 % Red Cell Distribution Width 14.5 % Platelet Count 212 TH/MM3 Mean Platelet Volume 7.6 FL Neutrophils (%) (Auto) 82.4 % Lymphocytes (%) (Auto) 5.7 % Monocytes (%) (Auto) 11.7 % Eosinophils (%) (Auto) 0.0 % Basophils (%) (Auto) 0.2 % Neutrophils # (Auto) 7.3 TH/MM3 Lymphocytes # (Auto) 0.5 TH/MM3 Monocytes # (Auto) 1.0 TH/MM3 Eosinophils # (Auto) 0.0 TH/MM3 Basophils # (Auto) 0.0 TH/MM3 CBC Comment DIFF FINAL Differential Comment Blood Urea Nitrogen 22 MG/DL Creatinine 1.40 MG/DL Random Glucose 86 MG/DL Total Protein 7.9 GM/DL Albumin 4.0 GM/DL Calcium Level 9.3 MG/DL Alkaline Phosphatase 70 U/L Aspartate Amino Transf (AST/SGOT) 21 U/L Alanine Aminotransferase (ALT/SGPT) 19 U/L Total Bilirubin 0.5 MG/DL Sodium Level 136 MEQ/L Potassium Level 4.2 MEQ/L Chloride Level 101 MEQ/L Carbon Dioxide Level 22.6 MEQ/L Anion Gap 12 MEQ/L Estimat Glomerular Filtration Rate 50 ML/MIN Lipase 43 U/L Thyroid Stimulating Hormone 3rd Gen 0.936 uIU/ML Ethyl Alcohol Level LESS THAN 3 MG/DL Urine Color YELLOW Urine Turbidity CLEAR Urine pH 5.5 Urine Specific [place] 1.036 Urine Protein 100 mg/dL Urine Glucose (UA) NEG mg/dL Urine Ketones 10 mg/dL Urine Occult Blood SMALL Urine Nitrite NEG Urine Bilirubin NEG Urine Urobilinogen 2.0 MG/DL Urine Leukocyte Esterase NEG Urine RBC 1 /hpf Urine WBC LESS THAN 1 /hpf Urine Squamous Epithelial Cells <1 /hpf Urine Hyaline Casts 3 /lpf Urine Mucus FEW /lpf Microscopic Urinalysis Comment CULT NOT INDICATED Urine Opiates Screen NEG Urine Barbiturates Screen NEG Urine Amphetamines Screen NEG Urine Benzodiazepines Screen POS Urine Cocaine Screen NEG Urine Cannabinoids Screen NEG Differential Diagnosis MDM: High Differential diagnoses: Schizophrenia, schizoaffective disorder, bipolar, anxiety, depression, adjustment reaction, mood disorder NOS, ODD, depressive disorder NOS, dementia, dementia with agitation, psychosis NOS, substance induced mood disorder, DMDD, Asperger syndrome, infection,electrolyte abnormality, malingering. Narrative Course Mental health screening discussed with the patient. Psychiatric screen ordered. The patient has been medically cleared. This is medical clearance for psychiatric admission, GERD Diagnosis Primary Impression: Medical clearance for psychiatric admission Additional Impression: GERD (gastroesophageal reflux disease) Qualified Codes: K21.9 - Gastro-esophageal reflux disease without esophagitis Condition: Stable Neftali Roman Aug 24, 2017 06:36
[2017-08-24] MEDS ORDERED: RESP: ALBUTEROL 2.5 MG/IPRATROPIUM 0.5 MG NEB (SCH) INH ONE (08:30)
--- NOTE | 2017-08-24 09:26 | PD ---
Physical Exam Date Seen by Provider: Aug 24, 2017 Time Seen by Provider: 09:24 Narrative 71-year-old male previously cleared for psychiatric evaluation voluntarily for suicidal ideation, was seen by psychiatric staff and deemed psychiatrically stable for discharge with follow-up with his outpatient therapist at [facility]. Patient remains medically stable at this time. Patient to follow-up with a psychiatrist and therapist this week. Data Data Last Documented VS Vital Signs Date Time Temp Pulse Resp B/P (MAP) Pulse Ox O2 Delivery O2 Flow Rate FiO2 08/24/17 04:15 98.0 100 16 120/72 (88) 98 Orders Orders Complete Blood Count With Diff (08/24/17 04:37) Comprehensive Metabolic Panel (08/24/17 04:37) Thyroid Stimulating Hormone (08/24/17 04:37) Urinalysis - C+S If Indicated (08/24/17 04:37) Psych Screen (08/24/17 04:37) Drug Screen, Random Urine (08/24/17 04:37) Alcohol (Ethanol) (08/24/17 04:37) Lipase (08/24/17 04:46) Al-Mag Hy-Si 40-40-4 Mg/Ml Liq (Mag-Al P (08/24/17 06:00) Ondansetron Odt (Zofran Odt) (08/24/17 06:00) Diet Regular Basic (08/24/17 Breakfast) Albuterol-Ipratropium Neb (Duoneb Neb) (08/24/17 08:30) Labs Laboratory Tests Test 08/24/17 04:45 08/24/17 05:15 White Blood Count 8.9 TH/MM3 Red Blood Count 4.31 MIL/MM3 Hemoglobin 12.8 GM/DL Hematocrit 37.8 % Mean Corpuscular Volume 87.7 FL Mean Corpuscular Hemoglobin 29.7 PG Mean Corpuscular Hemoglobin Concent 33.8 % Red Cell Distribution Width 14.5 % Platelet Count 212 TH/MM3 Mean Platelet Volume 7.6 FL Neutrophils (%) (Auto) 82.4 % Lymphocytes (%) (Auto) 5.7 % Monocytes (%) (Auto) 11.7 % Eosinophils (%) (Auto) 0.0 % Basophils (%) (Auto) 0.2 % Neutrophils # (Auto) 7.3 TH/MM3 Lymphocytes # (Auto) 0.5 TH/MM3 Monocytes # (Auto) 1.0 TH/MM3 Eosinophils # (Auto) 0.0 TH/MM3 Basophils # (Auto) 0.0 TH/MM3 CBC Comment DIFF FINAL Differential Comment Blood Urea Nitrogen 22 MG/DL Creatinine 1.40 MG/DL Random Glucose 86 MG/DL Total Protein 7.9 GM/DL Albumin 4.0 GM/DL Calcium Level 9.3 MG/DL Alkaline Phosphatase 70 U/L Aspartate Amino Transf (AST/SGOT) 21 U/L Alanine Aminotransferase (ALT/SGPT) 19 U/L Total Bilirubin 0.5 MG/DL Sodium Level 136 MEQ/L Potassium Level 4.2 MEQ/L Chloride Level 101 MEQ/L Carbon Dioxide Level 22.6 MEQ/L Anion Gap 12 MEQ/L Estimat Glomerular Filtration Rate 50 ML/MIN Lipase 43 U/L Thyroid Stimulating Hormone 3rd Gen 0.936 uIU/ML Ethyl Alcohol Level LESS THAN 3 MG/DL Urine Color YELLOW Urine Turbidity CLEAR Urine pH 5.5 Urine Specific [place] 1.036 Urine Protein 100 mg/dL Urine Glucose (UA) NEG mg/dL Urine Ketones 10 mg/dL Urine Occult Blood SMALL Urine Nitrite NEG Urine Bilirubin NEG Urine Urobilinogen 2.0 MG/DL Urine Leukocyte Esterase NEG Urine RBC 1 /hpf Urine WBC LESS THAN 1 /hpf Urine Squamous Epithelial Cells <1 /hpf Urine Hyaline Casts 3 /lpf Urine Mucus FEW /lpf Microscopic Urinalysis Comment CULT NOT INDICATED Urine Opiates Screen NEG Urine Barbiturates Screen NEG Urine Amphetamines Screen NEG Urine Benzodiazepines Screen POS Urine Cocaine Screen NEG Urine Cannabinoids Screen NEG MDM Medical Record Reviewed: Yes Supervised Visit with JULIET: Yes Narrative Course 71-year-old male previously cleared for psychiatric evaluation voluntarily for suicidal ideation, was seen by psychiatric staff and deemed psychiatrically stable for discharge with follow-up with his outpatient therapist at [facility]. Patient remains medically stable at this time. Patient to follow-up with a psychiatrist and therapist this week. Diagnosis Primary Impression: Medical clearance for psychiatric admission Additional Impression: GERD (gastroesophageal reflux disease) Qualified Codes: K21.9 - Gastro-esophageal reflux disease without esophagitis Referrals: Psychiatrist Patient Instructions: General Instructions Additional Instruction: Follow-up with outpatient psychiatrist/therapist as discussed. Med/Other Pt SpecificInfo: No Meds Exist/No RX given Disposition: DISCHARGE HOME Condition: Stable Troy Adrian Aug 24, 2017 09:26
[2017-08-24] MEDS ORDERED: ALPRAZolam 0.25 MG TAB PO ONE (10:15)
[2017-08-24] MEDS ORDERED: ACETAMINOPHEN 325 MG TAB PO ONE (13:00)
== END 2017-08-24 15:53 | disposition home or self-care (01) ==
LOC: NEPD 03:52
DX: K21.9 Gastro-esophageal reflux disease without esophagitis (principal); R11.2 Nausea with vomiting, unspecified; R10.13 Epigastric pain; R45.851 Suicidal ideations; F19.10 Other psychoactive substance abuse, uncomplicated; M62.81 Muscle weakness (generalized); M19.90 Unspecified osteoarthritis, unspecified site; F41.9 Anxiety disorder, unspecified; Z79.899 Other long term (current) drug therapy
CPT/HCPCS: 80053; 80307; 81001; 83690; 84443; 85025; 94664; 99283

== ENCOUNTER 2017-09-06 14:32 | Emergency (ER) | payer MEDICARE, OTHER ==
[~2017-09-06] VITALS: Ht 177.8 cm; Wt 80.0 kg
[2017-09-06 14:45] VITALS: BP 115/70; PULSE 96; RESP 16; TEMP 98.2; O2SAT 96
--- NOTE | 2017-09-06 18:41 | PD ---
HPI Chief Complaint: Medical Clearance Time Seen by Provider: 18:27 Travel History International Travel<30 days: No Contact w/Intl Traveler<30days: No Traveled to known affect area: No History of Present Illness HPI 71-year-old male complains of generalized weakness after taking his evening medications. Patient states that the symptom happened recently. Patient had a urine drug screen done last month and was positive for benzodiazepine and PCP. Patient requesting urine drug screen today. Patient denies any headache. Patient denies any chest pain shortness of breath. Patient denies abdominal pain. Patient denies any nausea vomiting diarrhea. Patient denies any fever chills. Patient denies any dysuria frequency. PFSH Past Medical History Arthritis: Yes (back) Asthma: No Autoimmune Disease: No Anxiety: Yes Depression: Yes Heart Rhythm Problems: No Cancer: No Cardiac Catheterization: Yes Cardiovascular Problems: Yes High Cholesterol: Yes Chemotherapy: No Chest Pain: No Congestive Heart Failure: No COPD: No Cerebrovascular Accident: Yes Diabetes: No Diminished Hearing: No Endocrine: No Gastrointestinal Disorders: Yes GERD: Yes (GERD) Genitourinary: No Hiatal Hernia: No Heparin Induced Thrombocytopen: No Hypertension: Yes Immune Disorder: No Implanted Vascular Access Dvce: No Kidney Stones: No Medical other: Yes (pt uses a cane) Musculoskeletal: No Neurologic: Yes Reproductive: No Respiratory: No Immunizations Current: No Migraines: No Myocardial Infarction: Yes Radiation Therapy: No Renal Failure: No Seizures: No Sickle Cell Disease: No Sleep Apnea: No Thyroid Disease: No Ulcer: No Past Surgical History Abdominal Surgery: Yes (appendectomy) AICD: No Appendectomy: Yes Arteriovenous Shunt: No Cardiac Surgery: No Ear Surgery: No Endocrine Surgery: No Eye Surgery: No Genitourinary Surgery: No Gynecologic Surgery: No Insulin Pump: No Joint Replacement: No Neurologic Surgery: No Oral Surgery: No Pacemaker: No Thoracic Surgery: No Tonsillectomy: Yes Other Surgery: Yes Social History Alcohol Use: No Tobacco Use: No Substance Use: No (Patient denies any current use/abuse. ) Allergies-Medications (Allergen,Severity, Reaction): Coded Allergies: No Known Allergies (Unverified Allergy, Unknown, 08/24/17) Reported Meds & Prescriptions Reported Meds & Active Scripts Active Reported Melatonin 5 Mg Tab 3 Mg PO HS Geodon (Ziprasidone) 40 Mg Cap 40 Mg PO TID Tramadol (Tramadol HCl) 50 Mg Tab 50 Mg PO Q8H PRN Lactulose Liq (Lactulose) 10 Gm/15 Ml Soln 30 Ml PO BID PRN Seroquel (Quetiapine Fumarate) 50 Mg Tab 50 Mg PO DAILY Omeprazole 40 Mg Cap 40 Mg PO DAILY Seroquel (Quetiapine Fumarate) 100 Mg Tab 100 Mg PO HS Xanax (Alprazolam) 0.25 Mg Tab 0.25 Mg PO BID PRN Effexor (Venlafaxine HCl) 75 Mg Tab 150 Mg PO Q12H Flomax (Tamsulosin HCl) 0.4 Mg Cap 0.4 Mg PO HS Pravastatin 40 Mg Tab 40 Mg PO DAILY Ditropan (Oxybutynin Chloride) 5 Mg Tab 5 Mg PO Q12HR Finasteride 5 Mg Tab 5 Mg PO DAILY Do not crush. Ferrous Sulfate 325 Mg (65 Mg Iron) Tablet 325 Mg PO BIDPC Docusate Sodium 100 Mg Cap 100 Mg PO DAILY Tums (Calcium Carbonate (Antacid)) 500 Mg Chew 1,500 Mg CHEW TIDAC PRN Aspirin 325 Mg Tab 325 Mg PO DAILY Amlodipine (Amlodipine Besylate) 5 Mg Tab 5 Mg PO DAILY Review of Systems General / Constitutional: No: Fever Eyes: No: Visual changes HENT: No: Headaches Cardiovascular: No: Chest Pain or Discomfort Respiratory: No: Shortness of Breath Gastrointestinal: No: Abdominal Pain Genitourinary: No: Dysuria Musculoskeletal: No: Pain Skin: No Rash Neurologic: No: Weakness Psychiatric: No: Depression Endocrine: No: Polydipsia Hematologic/Lymphatic: No: Easy Bruising Physical Exam Narrative GENERAL: Well-nourished, well-developed patient. SKIN: Focused skin assessment warm/dry. HEAD: Normocephalic. EYES: No scleral icterus. No injection or drainage. NECK: Supple, trachea midline. No JVD or lymphadenopathy. CARDIOVASCULAR: Regular rate and rhythm without murmurs, gallops, or rubs. RESPIRATORY: Breath sounds equal bilaterally. No accessory muscle use. GASTROINTESTINAL: Abdomen soft, non-tender, nondistended. MUSCULOSKELETAL: No cyanosis, or edema. BACK: Nontender without obvious deformity. No CVA tenderness. Neurologic exam normal. Data Data Last Documented VS Vital Signs Date Time Temp Pulse Resp B/P (MAP) Pulse Ox O2 Delivery O2 Flow Rate FiO2 09/06/17 19:26 81 17 138/76 (96) 96 Room Air 09/06/17 14:45 98.2 Orders Orders Complete Blood Count With Diff (09/06/17 18:35) Basic Metabolic Panel (Bmp) (09/06/17 18:35) Iv Access Insert/Monitor (09/06/17 18:35) Drug Screen, Random Urine (09/06/17 18:35) Labs Laboratory Tests Test 09/06/17 19:00 White Blood Count 10.1 TH/MM3 Red Blood Count 4.40 MIL/MM3 Hemoglobin 12.6 GM/DL Hematocrit 38.2 % Mean Corpuscular Volume 86.9 FL Mean Corpuscular Hemoglobin 28.6 PG Mean Corpuscular Hemoglobin Concent 32.9 % Red Cell Distribution Width 14.4 % Platelet Count 430 TH/MM3 Mean Platelet Volume 6.6 FL Neutrophils (%) (Auto) 67.2 % Lymphocytes (%) (Auto) 19.8 % Monocytes (%) (Auto) 11.3 % Eosinophils (%) (Auto) 1.2 % Basophils (%) (Auto) 0.5 % Neutrophils # (Auto) 6.8 TH/MM3 Lymphocytes # (Auto) 2.0 TH/MM3 Monocytes # (Auto) 1.1 TH/MM3 Eosinophils # (Auto) 0.1 TH/MM3 Basophils # (Auto) 0.0 TH/MM3 CBC Comment DIFF FINAL Differential Comment Blood Urea Nitrogen 16 MG/DL Creatinine 1.33 MG/DL Random Glucose 91 MG/DL Calcium Level 8.9 MG/DL Sodium Level 138 MEQ/L Potassium Level 3.3 MEQ/L Chloride Level 104 MEQ/L Carbon Dioxide Level 25.5 MEQ/L Anion Gap 9 MEQ/L Estimat Glomerular Filtration Rate 53 ML/MIN Urine Opiates Screen NEG Urine Barbiturates Screen NEG Urine Amphetamines Screen NEG Urine Benzodiazepines Screen POS Urine Cocaine Screen NEG Urine Cannabinoids Screen NEG MDM Medical Decision Making Medical Screen Exam Complete: Yes Emergency Medical Condition: Yes Interpretation(s) 2040 p.m. CBC within normal limits. Potassium 3.3. Creatinine 1.33. Urine drug screen positive for benzodiazepine. Differential Diagnosis Differential diagnosis including erroneous urine drug screen, side effect of medications. Narrative Course 71-year-old male requesting drug screen. Patient states that he feels tired after p.m. medications. Urine drug screen recently possible PCP. Diagnosis Primary Impression: Drug side effects Patient Instructions: General Instructions Additional Instructions: Advised patient to follow-up with local physician. Return if worse. Med/Other Pt SpecificInfo: No Change to Meds Disposition: 01 DISCHARGE HOME Condition: Stable Zachery Duque MD Sep 06, 2017 18:41
[2017-09-06 19:14] LABS: AUTOMATED NEUTROPHIL # 6.8 TH/MM3 (1.8-7.7); BASOPHIL % 0.5 % (0.0-2.0); EOSINOPHIL # 0.1 TH/MM3 (0-0.4); EOSINOPHIL % 1.2 % (0.0-4.0); HEMATOCRIT 38.2 % (39.0-51.0); HEMOGLOBIN 12.6 GM/DL (13.0-17.0); LYMPH % 19.8 % (9.0-44.0); MEAN CELL VOLUME 86.9 FL (80.0-100.0); MEAN CORPUSCULAR HEMOGLOBIN 28.6 PG (27.0-34.0); MEAN CORPUSCULAR HGB CONC 32.9 % (32.0-36.0); MEAN PLATELET VOLUME 6.6 FL (7.0-11.0); MONO % 11.3 % (0.0-8.0); MONOCYTE # 1.1 TH/MM3 (0-0.9); NEUT % 67.2 % (16.0-70.0); PLATELET COUNT 430 TH/MM3 (150-450); RED CELL DISTRIBUTION WIDTH 14.4 % (11.6-17.2); WHITE BLOOD COUNT 10.1 TH/MM3 (4.0-11.0)
[2017-09-06 19:26] VITALS: BP 138/76; PULSE 81; RESP 17; O2SAT 96
[2017-09-06] MEDS ORDERED: OMEP40CA2 PO (19:43)
[2017-09-06] MEDS ORDERED: ZIPR40 PO (19:43)
[2017-09-06] MEDS ORDERED: MELA5 PO (19:43)
[2017-09-06] MEDS ORDERED: SERO50TA PO (19:43)
[2017-09-06] MEDS ORDERED: TRAM50TA PO (19:43)
[2017-09-06] MEDS ORDERED: LACT10SO PO (19:43)
[2017-09-06 19:55] LABS: BICARBONATE 25.5 MEQ/L (21.0-32.0); CALCIUM 8.9 MG/DL (8.5-10.1); CREATININE 1.33 MG/DL (0.60-1.30)
== END 2017-09-06 21:32 | disposition home or self-care (01) ==
LOC: NEPD 14:32 → NEDAMB 21:32
DX: R53.1 Weakness (principal); T50.905A Adverse effect of unspecified drugs, medicaments and biological substances, initial encounter; F41.9 Anxiety disorder, unspecified; F32.9 Major depressive disorder, single episode, unspecified; E78.00 Pure hypercholesterolemia, unspecified; K21.9 Gastro-esophageal reflux disease without esophagitis; I10 Essential (primary) hypertension; I25.2 Old myocardial infarction; Z86.73 Personal history of transient ischemic attack (TIA), and cerebral infarction without residual deficits
CPT/HCPCS: 80048; 80307; 85025; 99283

== ENCOUNTER 2017-12-11 20:56 | Observation (INO) ==
[2017-12-11 22:23] LABS: Baso # (Auto) 0.1 th/mm3 (0.0-0.2); Baso % (Auto) 0.8 % (0.0-2.0); Eos # (Auto) 0.4 th/mm3 (0.0-0.4); Eos % (Auto) 5.2 % (0.0-4.0); Hemoglobin 11.1 gm/dL (13.0-17.0); Lymph # (Auto) 1.6 th/mm3 (1.0-4.8); Lymph % (Auto) 21.1 % (9.0-44.0); Mean Corpuscular HGB Conc 32.8 % (32.0-36.0); Mean Corpuscular Hemoglobin 28.3 pg (27.0-34.0); Mean Corpuscular Volume 86.3 fL (80.0-100.0); Mean Platelet Volume 7.3 fL (7.0-11.0); Mono # (Auto) 0.7 th/mm3 (0.0-0.9); Mono % (Auto) 8.8 % (0.0-8.0); Neut # (Auto) 4.9 th/mm3 (1.8-7.7); Neut % (Auto) 64.1 % (16.0-70.0); Platelet Count 273 th/mm3 (150-450); Red Blood Count 3.94 mil/mm3 (4.50-5.90); Red Cell Distribution Width 14.5 % (11.6-17.2); White Blood Count 7.6 th/mm3 (4.0-11.0)
--- NOTE | 2017-12-11 22:30 | XR ---
EXAM DATE: 12/11/2017 10:27 PM EDT AGE/SEX: 71 years / Male INDICATIONS: Chest pain worsening over the past 4 months. CLINICAL DATA: This is the patient's initial encounter. Patient reports that signs and symptoms have been present for 4 - 6 months and indicates a pain score of 5/10. MEDICAL/SURGICAL HISTORY: . Multiple Heart attacks Stroke Angioplasty. COMPARISON: [facility] – [place]ST SINGLE AP, 06/27/2017. . FINDINGS: Portable AP view of the chest demonstrates a normal-sized cardiac silhouette. No pleural effusion, ai rspace consolidation, or pneumothorax is identified. Bones and soft tissues demonstrate no acute find ing. EKG lines overlie the patient. CONCLUSION: No acute cardiopulmonary abnormality is identified. Electronically signed by: Alpesh Mclean MD 12/11/2017 10:29 PM EDT
[2017-12-11 22:33] LABS: Activated Partial Thrombo Time 27.5 sec (24.3-30.1); Prothrombin Time 9.7 sec (9.8-11.6)
[2017-12-11 22:42] LABS: Alanine Aminotransferase 16 U/L (12-78); Albumin 3.1 g/dL (3.4-5.0); Anion Gap 10 meq/L (5-15); Aspartate Aminotransferase 8 U/L (15-37); Blood Urea Nitrogen 14 mg/dL (7-18); Calcium 8.4 mg/dL (8.5-10.1); Chloride 107 meq/L (98-107); Glomerular Filtration Rate 55 mL/min (>89); Glucose,Random 137 mg/dL (74-106); Magnesium 1.8 mg/dL (1.5-2.5); Potassium 3.5 meq/L (3.5-5.1); Sodium 141 meq/L (136-145)
[2017-12-11 22:46] LABS: Alkaline Phosphatase 85 U/L (45-117); Total Protein 6.6 g/dL (6.4-8.2)
[2017-12-11 22:49] LABS: Creatine Kinase 40 U/L (39-308)
--- NOTE | 2017-12-12 01:05 | ED ---
HPI General Chief Complaint: Chest Pain Stated Complaint: Chest pain Time Seen by Provider: 12/11/17 22:02 Source: patient, EMS and old records reviewed History of Present Illness HPI narrative: This is a 71-year-old man presents emerged department go to a scale of complaining of substernal chest pain is been intermittent for the past week. Has been worse since today. Was 8 out of 10 prior to EMS given some nitroglycerin, down to 4 out of 10. Is a history of CAD with a previous [place] last stress test or heart evaluation was about a year or so ago when he had the [place] is followed by medical microbiologist but he does not know who. Pain is been ongoing, since he was some shortness of breath. No GI symptoms. No radiation of the pain. No aggravating or alleviating factors Complete Quality Measures for STEMI Alert Patients Related Data Home Medications Medication Instructions Recorded Confirmed alprazolam 0.25 mg PO TID 12/11/17 12/11/17 amlodipine [Norvasc] 5 mg PO HS 12/11/17 12/11/17 finasteride 5 mg PO DAILY 12/11/17 12/11/17 meclizine 25 mg PO TID 12/11/17 12/11/17 melatonin 3 mg PO HS 12/11/17 12/11/17 oxybutynin chloride 5 mg PO BID 12/11/17 12/11/17 permethrin 1 applic TOPICAL Q14D 12/11/17 12/11/17 quetiapine 100 mg PO TID 12/11/17 12/11/17 ranitidine HCl 150 mg PO BID 12/11/17 12/11/17 sucralfate 1 g PO QID 12/11/17 12/11/17 tamsulosin 0.4 mg PO DAILY 12/11/17 12/11/17 tramadol 50 mg PO Q6H 12/11/17 12/11/17 venlafaxine 150 mg PO BID 12/11/17 12/11/17 ziprasidone HCl 40 mg PO TID 12/11/17 12/11/17 Allergies Allergy/AdvReac Type Severity Reaction Status Date / Time No Known Allergies Allergy Unknown Uncoded 08/24/17 04:15 Review of Systems ROS Unobtainable All other systems reviewed negative except as stated in HPI [facility] Medical History Medical History Chest pain (Acute) Hypertension (Acute) Myocardial infarct (Acute) Stroke (Acute) Surgical History Surgical History H/O angioplasty (Acute) History of appendectomy (Acute) Social History Social History Substance History: No History of Abuse Second Hand Smoke Exposure: No Smoking Status: Former smoker How Often Do You Have a Drink Containing Alcohol: Never Immunization History Tetanus Immunization: Unsure Hx Influenza Vaccine This Season: No Exam Narrative Exam Narrative: GENERAL: 71-year-old man, no acute distress. SKIN: Focused skin assessment warm/dry. HEAD: Atraumatic. Normocephalic. EYES: Pupils equal and round. No scleral icterus. No injection or drainage. ENT: No nasal bleeding or discharge. Mucous membranes pink and moist. NECK: Trachea midline. No JVD. CARDIOVASCULAR: Regular rate and rhythm. No murmur appreciated. RESPIRATORY: No accessory muscle use. Clear to auscultation. Breath sounds equal bilaterally. GASTROINTESTINAL: Abdomen soft, non-tender, nondistended. Hepatic and splenic margins not palpable. MUSCULOSKELETAL: No obvious deformities. No clubbing. No cyanosis. No edema. NEUROLOGICAL: Awake and alert. Somewhat subtle left-sided weakness with no obvious contracture. Speech is a little bit dysarthric, but still easily understandable PSYCHIATRIC: Appropriate mood and affect; insight and judgment normal. Course Initial Documented Vital Signs Temperature 97.5 F L 12/11/17 21:55 Pulse Rate 77 12/11/17 21:55 Respiratory Rate 20 12/11/17 21:55 Blood Pressure 125/66 12/11/17 21:55 Pulse Oximetry 99 12/11/17 21:55 Last Documented Vital Signs Temperature 97.5 F L 12/11/17 21:55 Pulse Rate 70 12/11/17 23:34 Respiratory Rate 16 12/11/17 23:34 Blood Pressure 118/59 L 12/11/17 23:34 Pulse Oximetry 95 12/11/17 23:34 Medical Decision Making MDM Narrative Medical decision making narrative: This 71-year-old male presents emerged from the substernal well. EKG ischemic changes. Initial workup negative. Recommend admission the chest pain center. Lab Data Lab results reviewed: Yes I reviewed the patient's lab results. Result diagrams: 12/11/17 22:00 12/11/17 22:00 Lab Results 12/11/17 12/11/17 12/11/17 Range/Units 22:00 22:00 22:00 WBC 7.6 (4.0-11.0) th/mm3 RBC 3.94 L (4.50-5.90) mil/mm3 Hgb 11.1 L (13.0-17.0) gm/dL Hct 34.0 L (39.0-51.0) % MCV 86.3 (80.0-100.0) fL MCH 28.3 (27.0-34.0) pg MCHC 32.8 (32.0-36.0) % RDW 14.5 (11.6-17.2) % Plt Count 273 (150-450) th/mm3 MPV 7.3 (7.0-11.0) fL Neut % (Auto) 64.1 (16.0-70.0) % Lymph % (Auto) 21.1 (9.0-44.0) % [place] % (Auto) 8.8 H (0.0-8.0) % Eos % (Auto) 5.2 H (0.0-4.0) % Baso % (Auto) 0.8 (0.0-2.0) % Neut # (Auto) 4.9 (1.8-7.7) th/mm3 Lymph # (Auto) 1.6 (1.0-4.8) th/mm3 [place] # (Auto) 0.7 (0.0-0.9) th/mm3 Eos # (Auto) 0.4 (0.0-0.4) th/mm3 Baso # (Auto) 0.1 (0.0-0.2) th/mm3 WBC Differential . Differential Comment Auto diff final PT 9.7 L (9.8-11.6) sec INR 1.0 Ratio APTT 27.5 (24.3-30.1) sec Sodium 141 (136-145) meq/L Potassium 3.5 (3.5-5.1) meq/L Chloride 107 (98-107) meq/L Carbon Dioxide 24.0 (21.0-32.0) meq/L Anion Gap 10 (5-15) meq/L BUN 14 (7-18) mg/dL Creatinine 1.29 (0.60-1.30) mg/dL Estimated GFR 55 L (>89) mL/min Random Glucose 137 H (74-106) mg/dL Calcium 8.4 L (8.5-10.1) mg/dL Magnesium 1.8 (1.5-2.5) mg/dL Total Bilirubin 0.2 (0.2-1.0) mg/dL AST 8 L (15-37) U/L ALT 16 (12-78) U/L Alkaline Phosphatase 85 (45-117) U/L Total Creatine Kinase 40 (39-308) U/L Troponin I Less than 0.02 L (0.02-0.05) ng/mL Total Protein 6.6 (6.4-8.2) g/dL Albumin 3.1 L (3.4-5.0) g/dL Imaging Data Radiologist's impression: ITS Impressions Chest X-Ray 12/11/17 22:04 CONCLUSION: No acute cardiopulmonary abnormality is identified. Chest x-ray negative ECG Data EKG Prior to Arrival: Yes Attestation: I personally reviewed and interpreted this ECG as follows: Interpretation: Normal sinus rhythm at a rate of 73, leftward axis, inferior Q waves from old [place], no definite evidence of acute ischemia. Discharge Plan Discharge Disposition Patient Disposition: 30 Still Patient Discharge Details Diagnosis: Chest pain Physicians Team ED Provider: Neo Bar Primary Care Provider: Justice Sotelo Attending Provider: Justice Sexton Discharge Interventions Interventions: Vital Signs Last Done: 12/11/17 23:34 Status ED Status: Admitted Observation Patient
[2017-12-12 02:33] LABS: Creatine Kinase 37 U/L (39-308)
[2017-12-12 04:54] LABS: Creatine Kinase 43 U/L (39-308)
--- NOTE | 2017-12-12 09:11 | P.HPCA ---
History of Present Illness Primary Care Physician: Justice Sotelo MD Chief Complaint: Chest pain History of Present Illness: This is a 71-year-old male with history of CAD with stated history of angioplasty 2 without stenting about 2 years ago as well as having hypertension hyperlipidemia and prior CVA with a complaint of chest discomfort this been intermittent for couple months. States it is a bad pain. Pressure. This in the center left side of his chest. States it occurs with any mental or physical stress. States it occurs a few walks too fast with his walker or gets stressed out. When it would occur over the last 2 months it would use a resolve quickly after stopping the activity or calming down from the stressful situation. States similar discomfort occurred yesterday but lasted longer. States lasted about an hour. He does not recall being short of breath, nauseous , diaphoretic. Thinks it may be somewhat similar to the discomfort he had when he had his [place] twice 2 years ago but states that it is much more intense than. Currently denies chest discomfort. Denies recent illness. Denies fevers or chills. Patient quit smoking 10 years ago. There is family history of CAD. - Diagnosis (1) Chest pain (2) CAD (coronary artery disease) (3) History of coronary angioplasty (4) Hypertension (5) Hyperlipidemia (6) History of CVA (cerebrovascular accident) Inpatient Certification: I certify that the inpatient services were ordered in accordance with Medicare regulations governing the order. This includes certification that hospital inpatient services are reasonable and necessary and in the case of services not specified as inpatient-only under 42 CFR 419.22(n), that they are appropriately provided as inpatient services in accordance to with the 2-midnight benchmark under 43 CFR 412.3(e) Review of Systems General: Patient denies fevers, chills, and recent travel. HEENT: Patient denies headache, sore throat, difficulty swallowing. Cardiovascular: Has the chest discomfort as mentioned above. Denies sensation of heart beating rapidly or irregularly. No syncope. Denies diaphoresis. Respiratory: Denies shortness of breath or inspirational chest discomfort. Denies coughing wheezing or hemoptysis. GI: Patient denies nausea, vomiting, diarrhea, abdominal pain, bloody stools. Musculoskeletal: Patient denies joint pain or edema. Denies calf pain or edema. Neurovascular: Patient denies numbness, tingling, weakness in extremities. Denies headache. Endocrine: Denies polyuria and polydipsia. Hematologic: Denies easy bruising. Skin: Denies rash or itching. PMFSH - History History Provided By: Patient, Assistant Bookkeeper / EMT - Medical History Medical History: Medical History (Last Reviewed 12/12/17 @ 01:01 by Neo Bar MD) Chest pain Hypertension Myocardial infarct Stroke - Surgical History Surgical History: Surgical History (Last Reviewed 12/12/17 @ 01:01 by Neo Bar MD) H/O angioplasty History of appendectomy - Tobacco History Second Hand Smoke Exposure: No Tobacco Use In Past 30 Days: No Smoking Status: Former smoker - Alcohol History How Often Do You Have a Drink Containing Alcohol: Never - Substance Use History Substance History: No History of Abuse - Immunization History Tetanus Immunization: Unsure Hx Influenza Vaccine This Season: No Medications and Allergies Active Medications: Active Medications Alprazolam (Xanax) 0.25 mg PO TID DAVID Amlodipine Besylate (Norvasc) 5 mg PO HS DAVID Aspirin (Aspirin) 325 mg PO DAILY DAVID Finasteride (Proscar) 5 mg PO DAILY DAVID Non-Formulary Medication (Ranitidine Hcl [Ranitidine Hcl]) 150 mg PO BID DAVID Non-Formulary Medication (Venlafaxine [Venlafaxine]) 150 mg PO BID DAVID Oxybutynin Chloride (Ditropan) 5 mg PO BID DAVID Quetiapine Fumarate (Seroquel) 100 mg PO TID DAVID Sodium Chloride (Ns Flush) 2 ml IV.FLUSH UNSCH PRN PRN Reason: FLUSH AFTER USING IV ACCESS Sodium Chloride (Ns Flush) 2 ml IV.FLUSH BID DAVID Sodium Chloride (Ns Flush) 2 ml IV.FLUSH PRN PRN PRN Reason: FLUSH AFTER USING IV ACCESS Tamsulosin HCl (Flomax) 0.4 mg PO DAILY DAVID Tramadol HCl (Ultram) 50 mg PO Q6H PRN PRN Reason: PAIN SCALE 5-10 Ziprasidone (Geodon) 40 mg PO TID DAVID Allergies Allergy/AdvReac Type Severity Reaction Status Date / Time No Known Allergies Allergy Unknown Uncoded 08/24/17 04:15 Home Medications Medication Instructions Recorded Confirmed Type alprazolam 0.25 mg PO TID 12/11/17 12/11/17 History amlodipine [Norvasc] 5 mg PO HS 12/11/17 12/11/17 History finasteride 5 mg PO DAILY 12/11/17 12/11/17 History meclizine 25 mg PO TID 12/11/17 12/11/17 History melatonin 3 mg PO HS 12/11/17 12/11/17 History oxybutynin chloride 5 mg PO BID 12/11/17 12/11/17 History permethrin 1 applic TOPICAL Q14D 12/11/17 12/11/17 History quetiapine 100 mg PO TID 12/11/17 12/11/17 History ranitidine HCl 150 mg PO BID 12/11/17 12/11/17 History sucralfate 1 g PO QID 12/11/17 12/11/17 History tamsulosin 0.4 mg PO DAILY 12/11/17 12/11/17 History tramadol 50 mg PO Q6H 12/11/17 12/11/17 History venlafaxine 150 mg PO BID 12/11/17 12/11/17 History ziprasidone HCl 40 mg PO TID 12/11/17 12/11/17 History Exam Vital signs: Vital Signs 12/11/17 21:55 12/11/17 22:04 12/11/17 23:03 Temperature 97.5 F L Pulse Rate 77 Respiratory Rate 20 Blood Pressure 125/66 Pulse Oximetry 99 98 98 12/11/17 23:34 12/12/17 01:00 12/12/17 03:00 Temperature Pulse Rate 70 64 58 L Respiratory Rate 16 16 16 Blood Pressure 118/59 L 114/60 111/56 L Pulse Oximetry 95 98 96 12/12/17 05:00 Temperature Pulse Rate 55 L Respiratory Rate 16 Blood Pressure 130/62 Pulse Oximetry 97 Intake & Output 12/11/17 12/12/17 12/12/17 18:59 06:59 18:59 Weight 81.647 kg Narrative: GENERAL: This is a well-nourished, well-developed patient, in no apparent distress. Patient speaks in clear complete sentences. Patient is pleasant. HEENT: Head is atraumatic and normocephalic. Neck is supple without lymphadenopathy and trachea is midline. No JVD or carotid bruits. CARDIOVASCULAR: Regular rate and rhythm without murmurs, gallops, or rubs. RESPIRATORY: Clear to auscultation. Breath sounds equal bilaterally. No wheezes , rales, or rhonchi. Chest wall is nontender. No use of accessory muscles. GASTROINTESTINAL: Abdomen is nontender, nondistended. Abdomen soft. No obvious pulsatile mass or bruit. No CVA tenderness. Strong femoral pulses bilaterally. Normal bowel sounds in all quadrants. MUSCULOSKELETAL: Patient is moving upper and lower extremities freely. No calf tenderness or edema, no Homans sign. Strong pulses in upper and lower extremities. NEUROLOGICAL: Patient is alert and oriented. Cranial nerves 2-12 are grossly intact. No focal deficits and speech is clear. SKIN: No rash and turgor is normal. Results 12/11/17 22:00 12/11/17 22:00 Cardiac Enzymes 12/11/17 12/12/17 12/12/17 Range/Units 22:00 01:55 03:49 AST 8 L (15-37) U/L Troponin I Less than 0.02 L Less than 0.02 L Less than 0.02 L (0.02-0.05) ng/mL Coagulation 12/11/17 Range/Units 22:00 PT 9.7 L (9.8-11.6) sec APTT 27.5 (24.3-30.1) sec CBC 12/11/17 Range/Units 22:00 WBC 7.6 (4.0-11.0) th/mm3 RBC 3.94 L (4.50-5.90) mil/mm3 Hgb 11.1 L (13.0-17.0) gm/dL Hct 34.0 L (39.0-51.0) % Plt Count 273 (150-450) th/mm3 Neut # (Auto) 4.9 (1.8-7.7) th/mm3 Lymph # (Auto) 1.6 (1.0-4.8) th/mm3 [place] # (Auto) 0.7 (0.0-0.9) th/mm3 Eos # (Auto) 0.4 (0.0-0.4) th/mm3 Baso # (Auto) 0.1 (0.0-0.2) th/mm3 Comprehensive Metabolic Panel 12/11/17 Range/Units 22:00 Sodium 141 (136-145) meq/L Potassium 3.5 (3.5-5.1) meq/L Chloride 107 (98-107) meq/L Carbon Dioxide 24.0 (21.0-32.0) meq/L BUN 14 (7-18) mg/dL Creatinine 1.29 (0.60-1.30) mg/dL Calcium 8.4 L (8.5-10.1) mg/dL AST 8 L (15-37) U/L ALT 16 (12-78) U/L Alkaline Phosphatase 85 (45-117) U/L Total Protein 6.6 (6.4-8.2) g/dL Albumin 3.1 L (3.4-5.0) g/dL Intake and Output 12/11/17 12/12/17 12/12/17 22:59 06:59 14:59 Other: Weight 81.647 kg EKG interpretations - EKG EKG shows: sinus rhythm (EKGs are sinus rhythm without significant ST segment depressions or elevations. Inferior Q waves present. Borderline first-degree AV block.) Caprini VTE Risk Assessment Caprini VTE Risk Assessment: Moderate/High Risk (score >= 2) Caprini Risk Assessment Model: Point Value = 1 Point Value = 2 Point Value = 3 Point Value = 5 Age 41-60 Minor surgery BMI > 25 kg/m2 Swollen legs Varicose veins or History of unexplained or recurrent spontaneous Oral contraceptives or hormone replacement Sepsis (< 1 month) Serious lung disease, including pneumonia (< 1 month) Abnormal pulmonary function Acute myocardial infarction Congestive heart failure (< 1 month) History of inflammatory bowel disease Medical patient at bed rest Age 61-74 Arthroscopic surgery Major open surgery (> 45 min) Laparoscopic surgery (> 45 min) Malignancy Confined to bed (> 72 hours) Immobilizing plaster cast Central venous access Age >= 75 History of VTE Family history of VTE Factor V Leiden Prothrombin [id number] Lupus anticoagulant Anticardiolipin antibodies Elevated serum homocysteine Heparin-induced thrombocytopenia Other congenital or acquired thrombophilia Stroke (< 1 month) Elective arthroplasty Hip, pelvis, or leg fracture Acute spinal cord injury (< 1 month) Prophylaxis Regimen: Total Risk Factor Score Risk Level Prophylaxis Regimen 0-1 Low Early ambulation 2 Moderate Order ONE of the following: *Sequential Compression Device (SCD) *Heparin 5000 units SQ BID 3-4 Higher Order ONE of the following medications: *Heparin 5000 units SQ TID *Enoxaparin/Lovenox 40 mg SQ daily (WT < 150 kg, CrCl > 30 mL/min) *Enoxaparin/Lovenox 30 mg SQ daily (WT < 150 kg, CrCl > 10-29 mL/min) *Enoxaparin/Lovenox 30 mg SQ BID (WT < 150 kg, CrCl > 30 mL/min) AND/OR *Sequential Compression Device (SCD) 5 or more Highest Order ONE of the following medications: *Heparin 5000 units SQ TID (Preferred with Epidurals) *Enoxaparin/Lovenox 40 mg SQ daily (WT < 150 kg, CrCl > 30 mL/min) *Enoxaparin/Lovenox 30 mg SQ daily (WT < 150 kg, CrCl > 10-29 mL/min) *Enoxaparin/Lovenox 30 mg SQ BID (WT < 150 kg, CrCl > 30 mL/min) AND *Sequential Compression Device (SCD) Assessment and Plan - Assessment (1) Chest pain Code(s): R07.9 - Chest pain, unspecified Status: Acute (2) CAD (coronary artery disease) Code(s): I25.10 - Atherosclerotic heart disease of [place] coronary artery without angina pectoris Status: Acute (3) History of coronary angioplasty Code(s): Z98.61 - Coronary angioplasty status Status: Acute (4) Hypertension Code(s): I10 - Essential (primary) hypertension Status: Acute (5) Hyperlipidemia Code(s): E78.5 - Hyperlipidemia, unspecified Status: Acute (6) History of CVA (cerebrovascular accident) Code(s): Z86.73 - Personal history of transient ischemic attack (TIA), and cerebral infarction without residual deficits Status: Acute - Plan * Chest pain: Patient has had serial cardiac enzymes and EKGs for ruling out purposes. He was seen by Dr. Justice Sexton of cardiology. He will undergo a Lexiscan. He would be discharged home if stress test is nonischemic with instructions to follow-up with PCP and he should follow-up with machine molder on outpatient basis. Return to ED for interval issues. * CAD: Patient states history of CAD with angioplasty in the past. This will be reassessed with stress testing. He should follow-up with cardiology. * Hypertension: Continue medication. * Hyperlipidemia: Continue medication. Patient is stable at this time. He is agreeable to this plan. (1) Chest pain Qualifiers: Chest pain type: precordial pain Qualified Code(s): R07.2 - Precordial pain
[2017-12-12] MEDS ORDERED: Famotidine 20 MG Tablet PO SCH (10:15)
[2017-12-12] MEDS ORDERED: Venlafaxine XR 75 MG Capsule PO SCH (10:30)
[2017-12-12] MEDS ORDERED: Aspirin 325 MG Tablet PO SCH (10:30)
[2017-12-12] MEDS ORDERED: Finasteride 5 MG Tablet PO SCH (10:30)
[2017-12-12] MEDS: ALPRAZolam 0.25 MG Tablet PO SCH ×2 (11:52→14:56)
[2017-12-12] MEDS ORDERED: QUEtiapine 100 MG Tablet PO SCH (13:00)
[2017-12-12] MEDS ORDERED: Regadenoson Inj 0.4 MG/5 ML Syringe IV.PUSH ONE (13:40)
--- NOTE | 2017-12-12 14:13 | ECG ---
Date Performed: 12/11/2017 Time Performed: 21:53:11 PTAGE: 71 years EKG: Sinus rhythm WITH FIRST DEGREE AV BLOCK INFERIOR MYOCARDIAL INFARCTION ABNORMAL ECG INTERPRETATION BASED ON A DEF INGA AGE OF 40 YEARS PREVIOUS TRACING : 06/27/2017 11.29 Since previous tracing, no significant change noted DOCTOR: Justice Sexton Interpretating Date/Time 12/12/2017 14:12:28
--- NOTE | 2017-12-12 14:13 | ECG ---
Date Performed: 12/12/2017 Time Performed: 04:52:25 PTAGE: 71 years EKG: Sinus rhythm WITH FIRST DEGREE AV BLOCK MARKED LEFT AXIS DEVIATION ABNORMAL ECG PREVIOUS TRACING : 12/12/2017Since previous tracing, no significant change noted DOCTOR: Justice Sexton Interpretating Date/Time 12/12/2017 14:11:18
--- NOTE | 2017-12-12 14:13 | ECG ---
Date Performed: 12/12/2017 Time Performed: 01:55:54 PTAGE: 71 years EKG: Sinus rhythm WITH FIRST DEGREE AV BLOCK WITH OCCASIONAL VENTRICULAR PREMATURE COMPLEXES MARKED LEFT AXIS DEVIATIO N PROLONGED QT INTERVAL ABNORMAL ECG PREVIOUS TRACING : 0Since previous tracing, no significant change noted DOCTOR: Justice Sexton Interpretating Date/Time 12/12/2017 14:11:45
--- NOTE | 2017-12-12 15:03 | NM ---
EXAM DATE: 12/12/2017 2:55 PM EDT AGE/SEX: 71 years / Male INDICATIONS:Angina. . Chest pain CLINICAL DATA: This is the patient's initial encounter. Patient reports that signs and symptoms have been present for 1 week and indicates a pain score of 8/10. MEDICAL/SURGICAL HISTORY: Hypertension. Stroke. CO Appendectomy. Angioplasty. COMPARISON: [facility], MYOCARDIAL PERF PHARM SPECT, 06/27/2017. . DOSE: 8.1 mCi Tc 99m Myoview at rest 26.9 mCi [id number] at stress 0.4 mg Lexiscan STRESS SYMPTOMS: None. EJECTION FRACTION: >70 % TECHNIQUE: The patient underwent pharmacologic stress with infusion of prescribed dose. Continuous ECG tracing was monitored during stress. Gated SPECT imaging was performed after stress and conventi onal SPECT imaging was performed at rest. The examination was performed on a SPECT/CT scanner, both attenuation and non-corrected datasets were reviewed. FINDINGS: Distribution: The maximum perfused segment at stress is in the anterior wall. Perfusion Study: The pattern of perfusion at stress is within normal limits. Gated Study: There are intact wall motion and wall thickening without hypokinetic or dyskinetic segm ents. The ejection fraction is calculated at >70%. RISK CATEGORY: Low (<1% Annual Motality Rate) CONCLUSION: 1. No evidence of fixed or stress induced reversible perfusion abnormality. 2. Normal wall motion and ejection fraction 3. Stable evaluation compared to previous study Electronically signed by: Erik Morgan MD 12/12/2017 3:02 PM EDT
[2017-12-12] MEDS ORDERED: amLODIPine 5 MG Tablet PO SCH (21:00)
--- NOTE | 2017-12-15 17:47 | TR ---
Date Performed: 12/12/2017 Time Performed: 13:55:00 DOCTOR: Jason Chavez DRUG LIST: CLINICAL HISTORY: REASON FOR TEST: REASON FOR ENDING: OBSERVATION: CONCLUSION: Lexiscan stress test was performed under standard four minute protocol. Radionuclide was injected one minute prior to ending the test. No electrocardiographic abormalities were present to suggest ischemia. Nuclear imaging and interpretation are pending. COMMENTS:
== END 2017-12-12 17:56 | disposition home or self-care (01) ==
LOC: NEDA 20:56 → NEPGCP 20:56 → NEPC 20:56 → NEDH 12-12 04:16 → NEPGCP 12-12 12:51
PROVIDERS: ADMIT Internal Medicine Cardiovascular Disease; ATTEND Internal Medicine Cardiovascular Disease

== ENCOUNTER 2017-12-24 14:40 | Observation (INO) ==
--- NOTE | 2017-12-24 15:10 | ED ---
HPI General Chief Complaint: Chest Pain Stated Complaint: Chest Pain Time Seen by Provider: 12/24/17 14:58 History of Present Illness HPI narrative: Patient presents to the emergency department complaining of chest pain and dizziness. Patient was given 2 nitroglycerin by KAELYN and his systolic BP decreased to the 70s. His blood pressure improved and EVAC gave him another sublingual nitro was also given for aspirin and he has no chest pain now. 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 Chest pain described as being sternal, nonradiating, constant, started yesterday, achy/pressure like. He denies fever , lower extremity edema, recent travel, loss of consciousness, or syncope. But he does have shortness of breath with the chest pain. patient is residing in an [facility] 2/2 to his dying and him not "doing so well" living alone. Complete Quality Measures for STEMI Alert Patients Related Data Home Medications Medication Instructions Recorded Confirmed alprazolam 0.25 mg PO TID 12/11/17 12/24/17 amlodipine [Norvasc] 5 mg PO DAILY 12/11/17 12/24/17 finasteride 5 mg PO HS 12/11/17 12/24/17 meclizine 25 mg PO TID PRN 12/11/17 12/24/17 melatonin 3 mg PO HS 12/11/17 12/24/17 oxybutynin chloride 5 mg PO BID 12/11/17 12/24/17 permethrin 1 applic TOPICAL ONCE 12/11/17 12/24/17 quetiapine 100 mg PO TID 12/11/17 12/24/17 ranitidine HCl 150 mg PO BID 12/11/17 12/24/17 sucralfate 1 g PO QID 12/11/17 12/24/17 tamsulosin 0.8 mg PO DAILY 12/11/17 12/24/17 tramadol 50 mg PO TID 12/11/17 12/24/17 ziprasidone HCl 40 mg PO TID 12/11/17 12/24/17 calcium carbonate [Tums] 2 tab PO Q4-6H PRN 12/24/17 12/24/17 nitroglycerin [Nitrostat] 0.4 mg SUBLINGUAL Q5-15M PRN 12/24/17 12/24/17 venlafaxine 150 mg PO BID 12/24/17 12/24/17 Allergies Allergy/AdvReac Type Severity Reaction Status Date / Time No Known Allergies Allergy Unverified 12/24/17 14:58 Review of Systems ROS Unobtainable All other systems reviewed negative except as stated in HPI [facility] Medical History Medical History Hypertension (Acute) Stroke (Acute) Myocardial infarct (Acute) Chest pain (Acute) Surgical History Surgical History H/O angioplasty (Acute) History of appendectomy (Acute) Social History Social History Substance History: No History of Abuse Second Hand Smoke Exposure: No Smoking Status: Never smoker How Often Do You Have a Drink Containing Alcohol: Never Recent Travel in [facility] within the Last 8 Weeks: No Recent Out of Country Travel within the Last 8 Weeks: No Immunization History Tetanus Immunization: Unsure Hx Influenza Vaccine This Season: Yes Exam Narrative Exam Narrative: GENERAL: No acute distress. SKIN: Focused skin assessment warm/dry. HEAD: Atraumatic. Normocephalic. EYES: Pupils equal and round. No scleral icterus. No injection or drainage. ENT: No nasal bleeding or discharge. Mucous membranes pink and moist. NECK: Trachea midline. No JVD. CARDIOVASCULAR: Regular rate and rhythm. No murmur appreciated. RESPIRATORY: No accessory muscle use. Clear to auscultation. Breath sounds equal bilaterally. GASTROINTESTINAL: Abdomen soft, non-tender, nondistended. Hepatic and splenic margins not palpable. MUSCULOSKELETAL: No obvious deformities. No clubbing. No cyanosis. No edema. NEUROLOGICAL: Awake and alert. No obvious cranial nerve deficits. Motor grossly within normal limits. Normal speech. PSYCHIATRIC: Appropriate mood and affect; insight and judgment normal. Course Initial Documented Vital Signs Temperature 97.5 F L 12/24/17 14:50 Pulse Rate 73 12/24/17 14:50 Respiratory Rate 17 12/24/17 14:50 Blood Pressure 116/59 L 12/24/17 14:50 Pulse Oximetry 94 L 12/24/17 14:50 Last Documented Vital Signs Temperature 97.5 F L 12/24/17 14:50 Pulse Rate 73 12/24/17 14:50 Respiratory Rate 17 12/24/17 14:50 Blood Pressure 116/59 L 12/24/17 14:50 Pulse Oximetry 94 L 12/24/17 14:50 Critical Care Time Critical Care Time: Yes Total Critical Care Time: 35 Attestation: Aggregate critical care time was 35 minutes. Time to perform other separately billable procedures was not included in the critical care time. My time did not include minutes spent treating any other patients simultaneously or on activities that did not directly contribute to the patient's treatment. The services I provided to this patient were to treat and/or prevent clinically significant deterioration that could result in: cardiac arrhythymia secondary to hypomagnesemia, cardiac ischemia I provided critical care services requiring my management, as noted below: Chart data review, documentation time, medication orders and management, vital sign assessments/reviewing monitor data, ordering and reviewing lab tests, ordering and interpreting/reviewing x-rays and diagnostic studies, care of the patient and discussion of the patient with the admitting physicians. Medical Decision Making MDM Narrative Medical decision making narrative: Presents to the emergency department complaining of chest pain and dizziness. Patient placed on nuclear monitoring technician, continuous pulse ox, and EKG, chest x-ray, labs ordered. Patient is chest pain- free and blood pressures improved 0.5 nitroglycerin applied to chest wall. CXR shows no acute process. Slight decrease in hgb and hct. Elevated creatinine and BUN. Low magnesium (1.4), given 1 gram IV magnesium x 2. D dimer and troponin wnl. Differential Diagnosis Differential Diagnosis: ACS, PE, musculoskeletal chest pain, Lab Data Result diagrams: 12/24/17 15:20 12/24/17 15:20 Lab Results 12/24/17 12/24/17 12/24/17 Range/Units 15:20 15:20 15:20 WBC 7.2 (4.0-11.0) th/mm3 RBC 4.22 L (4.50-5.90) mil/mm3 Hgb 11.8 L (13.0-17.0) gm/dL Hct 36.3 L (39.0-51.0) % MCV 86.0 (80.0-100.0) fL MCH 28.0 (27.0-34.0) pg MCHC 32.5 (32.0-36.0) % RDW 14.2 (11.6-17.2) % Plt Count 242 (150-450) th/mm3 MPV 7.7 (7.0-11.0) fL Neut % (Auto) 62.7 (16.0-70.0) % Lymph % (Auto) 22.0 (9.0-44.0) % Whitfield % (Auto) 10.5 H (0.0-8.0) % Eos % (Auto) 4.3 H (0.0-4.0) % Baso % (Auto) 0.5 (0.0-2.0) % Neut # (Auto) 4.5 (1.8-7.7) th/mm3 Lymph # (Auto) 1.6 (1.0-4.8) th/mm3 Whitfield # (Auto) 0.8 (0.0-0.9) th/mm3 Eos # (Auto) 0.3 (0.0-0.4) th/mm3 Baso # (Auto) 0.0 (0.0-0.2) th/mm3 WBC Differential . Differential Comment Auto diff final PT 10.1 (9.8-11.6) sec INR 1.0 Ratio APTT 25.6 (24.3-30.1) sec D-Dimer Quant (PE/DVT) 0.36 (0.00-0.50) mg/L FEU Sodium 139 (136-145) meq/L Potassium 3.5 (3.5-5.1) meq/L Chloride 103 (98-107) meq/L Carbon Dioxide 26.7 (21.0-32.0) meq/L Anion Gap 9 (5-15) meq/L BUN 24 H (7-18) mg/dL Creatinine 1.83 H (0.60-1.30) mg/dL Estimated GFR 37 L (>89) mL/min Random Glucose 128 H (74-106) mg/dL Calcium 9.0 (8.5-10.1) mg/dL Magnesium 1.4 L (1.5-2.5) mg/dL Total Bilirubin 0.2 (0.2-1.0) mg/dL AST 14 L (15-37) U/L ALT 15 (12-78) U/L Alkaline Phosphatase 86 (45-117) U/L Total Creatine Kinase 39 (39-308) U/L Troponin I Less than 0.02 L (0.02-0.05) ng/mL B-Natriuretic Peptide (0-100) pg/mL Total Protein 6.5 (6.4-8.2) g/dL Albumin 3.3 L (3.4-5.0) g/dL 12/24/17 Range/Units 15:20 WBC (4.0-11.0) th/mm3 RBC (4.50-5.90) mil/mm3 Hgb (13.0-17.0) gm/dL Hct (39.0-51.0) % MCV (80.0-100.0) fL MCH (27.0-34.0) pg MCHC (32.0-36.0) % RDW (11.6-17.2) % Plt Count (150-450) th/mm3 MPV (7.0-11.0) fL Neut % (Auto) (16.0-70.0) % Lymph % (Auto) (9.0-44.0) % Whitfield % (Auto) (0.0-8.0) % Eos % (Auto) (0.0-4.0) % Baso % (Auto) (0.0-2.0) % Neut # (Auto) (1.8-7.7) th/mm3 Lymph # (Auto) (1.0-4.8) th/mm3 Whitfield # (Auto) (0.0-0.9) th/mm3 Eos # (Auto) (0.0-0.4) th/mm3 Baso # (Auto) (0.0-0.2) th/mm3 WBC Differential Differential Comment PT (9.8-11.6) sec INR Ratio APTT (24.3-30.1) sec D-Dimer Quant (PE/DVT) (0.00-0.50) mg/L FEU Sodium (136-145) meq/L Potassium (3.5-5.1) meq/L Chloride (98-107) meq/L Carbon Dioxide (21.0-32.0) meq/L Anion Gap (5-15) meq/L BUN (7-18) mg/dL Creatinine (0.60-1.30) mg/dL Estimated GFR (>89) mL/min Random Glucose (74-106) mg/dL Calcium (8.5-10.1) mg/dL Magnesium (1.5-2.5) mg/dL Total Bilirubin (0.2-1.0) mg/dL AST (15-37) U/L ALT (12-78) U/L Alkaline Phosphatase (45-117) U/L Total Creatine Kinase (39-308) U/L Troponin I (0.02-0.05) ng/mL B-Natriuretic Peptide 2 (0-100) pg/mL Total Protein (6.4-8.2) g/dL Albumin (3.4-5.0) g/dL Imaging Data Radiologist's impression: Chest X-Ray 12/24/17 15:14 CONCLUSION: ECG Data Attestation: I personally reviewed and interpreted this ECG as follows: (Rate 93 , sinus rhythm, first-degree AV block, incomplete right bundle branch block, T- wave inversion in V1 and V2 9similar to prior), RVH) Discharge Plan Discharge Disposition Patient Disposition: 30 Still Patient Discharge Condition Condition: Stable Discharge Details Diagnosis: Chest pain, Hypomagnesemia Physicians Team ED Provider: Lorenza Hardin Primary Care Provider: Justice Sotelo Rxs /Orders / Referrals /Forms Prescriptions: No Action amlodipine [Norvasc] 5 mg Tablet 5 mg PO DAILY RF: 0 finasteride 5 mg Tablet 5 mg PO HS RF: 0 melatonin 3 mg Tablet 3 mg PO HS RF: 0 permethrin 5 % Cream 1 applic TOPICAL ONCE RF: 0 tamsulosin 0.4 mg Capsule,Extended Release 24hr 0.8 mg PO DAILY RF: 0 ranitidine HCl 150 mg Tablet 150 mg PO BID RF: 0 oxybutynin chloride 5 mg Tablet 5 mg PO BID RF: 0 alprazolam 0.25 mg Tablet 0.25 mg PO TID RF: 0 tramadol 50 mg Tablet 50 mg PO TID RF: 0 quetiapine 100 mg Tablet 100 mg PO TID RF: 0 ziprasidone HCl 40 mg Capsule 40 mg PO TID RF: 0 sucralfate 1 gram Tablet 1 g PO QID RF: 0 meclizine 25 mg Tablet 25 mg PO TID PRN (Reason: Dizziness) RF: 0 venlafaxine 75 mg Tablet 150 mg PO BID RF: 0 calcium carbonate [Tums] 200 mg calcium (500 mg) Tablet,Chewable 2 tab PO Q4-6H PRN (Reason: Acid Reflux) RF: 0 nitroglycerin [Nitrostat] 0.4 mg Tablet, Sublingual 0.4 mg SUBLINGUAL Q5-15M PRN (Reason: Chest Pain) RF: 0 Discharge Instructions Patient Printed Instructions: Chest Pain (ED) Status ED Status: With Doctor
[2017-12-24 15:41] LABS: Baso % (Auto) 0.5 % (0.0-2.0); Eos # (Auto) 0.3 th/mm3 (0.0-0.4); Eos % (Auto) 4.3 % (0.0-4.0); Hematocrit 36.3 % (39.0-51.0); Hemoglobin 11.8 gm/dL (13.0-17.0); Lymph # (Auto) 1.6 th/mm3 (1.0-4.8); Mean Corpuscular HGB Conc 32.5 % (32.0-36.0); Mean Platelet Volume 7.7 fL (7.0-11.0); Mono # (Auto) 0.8 th/mm3 (0.0-0.9); Mono % (Auto) 10.5 % (0.0-8.0); Neut # (Auto) 4.5 th/mm3 (1.8-7.7); Neut % (Auto) 62.7 % (16.0-70.0); Platelet Count 242 th/mm3 (150-450); Red Blood Count 4.22 mil/mm3 (4.50-5.90); Red Cell Distribution Width 14.2 % (11.6-17.2); White Blood Count 7.2 th/mm3 (4.0-11.0)
--- NOTE | 2017-12-24 15:43 | XR ---
EXAM DATE: 12/24/2017 3:37 PM EDT AGE/SEX: 71 years / Male INDICATIONS: Chest pain starting today CLINICAL DATA: This is the patient's initial encounter. Patient reports that signs and symptoms have been present for 1 day and indicates a pain score of 5/10. MEDICAL/SURGICAL HISTORY: . Hypertension. Stroke. [place] Appendectomy . Angioplasty COMPARISON: [facility] [place], CHEST 1V SINGLE AP, 12/11/2017. . FINDINGS: The cardiac silhouette is enlarged in transverse diameter. The lungs are free of acute parenchymal op acity. No pulmonary nodules or pleural effusions are identified. CONCLUSION: Cardiomegaly. No acute pulmonary disease. Electronically signed by: Justice Hubbard MD 12/24/2017 3:42 PM EDT
[2017-12-24 15:59] LABS: Activated Partial Thrombo Time 25.6 sec (24.3-30.1); Prothrombin Time 10.1 sec (9.8-11.6)
[2017-12-24 16:01] LABS: D-Dimer 0.36 mg/L FEU (0.00-0.50)
[2017-12-24 16:25] LABS: Anion Gap 9 meq/L (5-15); Blood Urea Nitrogen 24 mg/dL (7-18); Carbon Dioxide 26.7 meq/L (21.0-32.0); Chloride 103 meq/L (98-107); Glomerular Filtration Rate 37 mL/min (>89); Potassium 3.5 meq/L (3.5-5.1); Sodium 139 meq/L (136-145)
[2017-12-24 16:26] LABS: Alanine Aminotransferase 15 U/L (12-78); Albumin 3.3 g/dL (3.4-5.0); Alkaline Phosphatase 86 U/L (45-117); Aspartate Aminotransferase 14 U/L (15-37); Creatine Kinase 39 U/L (39-308); Glucose,Random 128 mg/dL (74-106); Magnesium 1.4 mg/dL (1.5-2.5); Total Protein 6.5 g/dL (6.4-8.2)
[2017-12-24] MEDS ORDERED: Mag Sulf 1 gm/100 ml Premix 100 ML IV.SIG ONE ×2 (16:35→17:13)
[2017-12-24] MEDS ORDERED: Acetaminophen 500 MG Tablet PO PRN (17:27)
--- NOTE | 2017-12-24 17:31 | P.HP ---
History of Present Illness Primary Care Physician: Justice Sotelo MD Chief Complaint: Chest pain History of Present Illness: This is a 71-year-old male patient with a known medical history of hypertension , history of CAD and prior [place] and history of stroke who presented to the ED with complaints of chest pain. Patient states that earlier this morning he developed a midsternal chest pain that was sharp and shooting in nature, did not radiate up his neck or arm, states the pain went across his chest, lasted a couple hours, denied any aggravating factors, states that he took 3 nitroglycerin sublingual tablets which did improve the pain. Patient denies any associated diaphoresis, nausea or vomiting. He does admit to mild shortness of breath. Patient was recently admitted to the hospital, underwent a cardiac stress test which was reportedly negative and was discharged 2 weeks ago. He has been at his LONG TERM since then and he has been complaining of ongoing intermittent chest discomfort. He also states that he had an episode of dizziness this morning, felt like he was spinning. Denies falling. Denies any headache or lightheadedness. He denies any recent illness including fever, chills, cough, shortness of breath, abdomen, nausea, vomiting, diarrhea or dysuria. Patient denies any history of kidney disease although he does admit to BPH. Patient does state that he drinks a lot of coffee at home and does not consume any water. Has a good appetite recently. Has been compliant with his medications. 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 He does admit to also undergoing an EGD roughly 3 weeks ago when a duodenal ulcer was found. He was placed on Carafate 4 times a day and Tums. He states that he did take a couple times this morning and it did help relieve the pain. Review of Systems All other systems reviewed negative except as stated in HPI PMFSH - History History Provided By: Patient - Medical History Medical History: Medical History (Last Updated 12/24/17 @ 14:59 by Leigh Ann Rodas) Hypertension (Acute) Stroke (Acute) Myocardial infarct (Acute) Chest pain (Acute) - Surgical History Surgical History: Surgical History (Last Updated 12/24/17 @ 14:59 by Leigh Ann Rodas) H/O angioplasty (Acute) History of appendectomy (Acute) - Family History Family History: Family History (Last Updated 12/24/17 @ 17:56 by Rena Fierro) Other No family history of cardiovascular disease - Tobacco History Second Hand Smoke Exposure: No Smoking Status: Never smoker - Alcohol History How Often Do You Have a Drink Containing Alcohol: Never - Substance Use History Substance History: No History of Abuse - Travel History Recent Travel in the [place] Within the Last 8 Weeks: No Recent Travel Out of the Country Within the Last 8 Weeks: No - Immunization History Tetanus Immunization: Unsure Hx Influenza Vaccine This Season: Yes Medications and Allergies Active Medications: Active Medications Acetaminophen (Tylenol) 500 mg PO Q4H PRN PRN Reason: HEADACHE Magnesium Sulfate/Dextrose (Magnesium Sulfate 1 Gm/D5w 100 Ml Premix) 100 mls @ 100 mls/hr IV.SIG ONCE ONE Stop: 12/24/17 17:34 Magnesium Sulfate/Dextrose (Magnesium Sulfate 1 Gm/D5w 100 Ml Premix) 100 mls @ 100 mls/hr IV.SIG ONCE ONE Stop: 12/24/17 18:12 Nitroglycerin (Nitrostat Sl) 0.4 mg SL Q5M PRN PRN Reason: CHEST PAIN Ondansetron HCl (Zofran Inj) 4 mg IV.PUSH Q6H PRN PRN Reason: NAUSEA Sodium Chloride (Ns Flush) 2 ml IV.FLUSH BID DAVID Sodium Chloride (Ns Flush) 2 ml IV.FLUSH PRN PRN PRN Reason: FLUSH AFTER USING IV ACCESS Allergies Allergy/AdvReac Type Severity Reaction Status Date / Time No Known Allergies Allergy Unverified 12/24/17 14:58 Home Medications Medication Instructions Recorded Confirmed Type alprazolam 0.25 mg PO TID 12/11/17 12/24/17 History amlodipine [Norvasc] 5 mg PO DAILY 12/11/17 12/24/17 History finasteride 5 mg PO HS 12/11/17 12/24/17 History meclizine 25 mg PO TID PRN 12/11/17 12/24/17 History melatonin 3 mg PO HS 12/11/17 12/24/17 History oxybutynin chloride 5 mg PO BID 12/11/17 12/24/17 History permethrin 1 applic TOPICAL ONCE 12/11/17 12/24/17 History quetiapine 100 mg PO TID 12/11/17 12/24/17 History ranitidine HCl 150 mg PO BID 12/11/17 12/24/17 History sucralfate 1 g PO QID 12/11/17 12/24/17 History tamsulosin 0.8 mg PO DAILY 12/11/17 12/24/17 History tramadol 50 mg PO TID 12/11/17 12/24/17 History ziprasidone HCl 40 mg PO TID 12/11/17 12/24/17 History calcium carbonate [Tums] 2 tab PO Q4-6H PRN 12/24/17 12/24/17 History nitroglycerin [Nitrostat] 0.4 mg SUBLINGUAL Q5-15M PRN 12/24/17 12/24/17 History venlafaxine 150 mg PO BID 12/24/17 12/24/17 History Exam Vital signs: Vital Signs 12/24/17 14:50 Temperature 97.5 F L Pulse Rate 73 Respiratory Rate 17 Blood Pressure 116/59 L Pulse Oximetry 94 L Narrative: GENERAL: Well-developed, well-nourished patient in [facility]. SKIN: Warm and dry. No rash. HEAD: Normocephalic. Atraumatic. EYES: Pupils equal and round. No scleral icterus. No injection or drainage. ENT: No nasal bleeding or discharge. Mucous membranes pink and moist. NECK: Supple. Trachea midline. CARDIOVASCULAR: Regular rate and rhythm. S1, S2 noted. No murmur appreciated. RESPIRATORY: No accessory muscle use. Clear to auscultation. Breath sounds equal bilaterally. No chest pain to palpation. GASTROINTESTINAL: Abdomen soft, non-tender, nondistended. Normoactive bowel sounds x4. MUSCULOSKELETAL: No obvious deformities. Extremities without clubbing, cyanosis , or edema. NEUROLOGICAL: Awake and alert. No obvious cranial nerve deficits. Motor grossly within normal limits. 5/5 muscle strength in bilateral upper and lower extremities. Normal speech. PSYCHIATRIC: Appropriate mood and affect; insight and judgment normal. Results - Labs CBC & Chem 7: 12/24/17 15:20 12/24/17 15:20 Labs: Laboratory Results - last 24 hr 12/24/17 12/24/17 12/24/17 15:20 15:20 15:20 WBC 7.2 RBC 4.22 L Hgb 11.8 L Hct 36.3 L MCV 86.0 MCH 28.0 MCHC 32.5 RDW 14.2 Plt Count 242 MPV 7.7 Neut % (Auto) 62.7 Lymph % (Auto) 22.0 Sharp % (Auto) 10.5 H Eos % (Auto) 4.3 H Baso % (Auto) 0.5 Neut # (Auto) 4.5 Lymph # (Auto) 1.6 Sharp # (Auto) 0.8 Eos # (Auto) 0.3 Baso # (Auto) 0.0 WBC Differential . Differential Comment Auto diff final PT 10.1 INR 1.0 APTT 25.6 D-Dimer Quant (PE/DVT) 0.36 Sodium 139 Potassium 3.5 Chloride 103 Carbon Dioxide 26.7 Anion Gap 9 BUN 24 H Creatinine 1.83 H Estimated GFR 37 L Random Glucose 128 H Calcium 9.0 Magnesium 1.4 L Total Bilirubin 0.2 AST 14 L ALT 15 Alkaline Phosphatase 86 Total Creatine Kinase 39 Troponin I Less than 0.02 L B-Natriuretic Peptide Total Protein 6.5 Albumin 3.3 L 12/24/17 15:20 WBC RBC Hgb Hct MCV MCH MCHC RDW Plt Count MPV Neut % (Auto) Lymph % (Auto) Sharp % (Auto) Eos % (Auto) Baso % (Auto) Neut # (Auto) Lymph # (Auto) Sharp # (Auto) Eos # (Auto) Baso # (Auto) WBC Differential Differential Comment PT INR APTT D-Dimer Quant (PE/DVT) Sodium Potassium Chloride Carbon Dioxide Anion Gap BUN Creatinine Estimated GFR Random Glucose Calcium Magnesium Total Bilirubin AST ALT Alkaline Phosphatase Total Creatine Kinase Troponin I B-Natriuretic Peptide 2 Total Protein Albumin - Imaging Impressions Chest X-Ray 12/24/17 15:14 CONCLUSION: Caprini VTE Risk Assessment Caprini VTE Risk Assessment: Moderate/High Risk (score >= 2) Caprini Risk Assessment Model: Point Value = 1 Point Value = 2 Point Value = 3 Point Value = 5 Age 41-60 Minor surgery BMI > 25 kg/m2 Swollen legs Varicose veins or History of unexplained or recurrent spontaneous Oral contraceptives or hormone replacement Sepsis (< 1 month) Serious lung disease, including pneumonia (< 1 month) Abnormal pulmonary function Acute myocardial infarction Congestive heart failure (< 1 month) History of inflammatory bowel disease Medical patient at bed rest Age 61-74 Arthroscopic surgery Major open surgery (> 45 min) Laparoscopic surgery (> 45 min) Malignancy Confined to bed (> 72 hours) Immobilizing plaster cast Central venous access Age >= 75 History of VTE Family history of VTE Factor V Leiden Prothrombin [id number] Lupus anticoagulant Anticardiolipin antibodies Elevated serum homocysteine Heparin-induced thrombocytopenia Other congenital or acquired thrombophilia Stroke (< 1 month) Elective arthroplasty Hip, pelvis, or leg fracture Acute spinal cord injury (< 1 month) Prophylaxis Regimen: Total Risk Factor Score Risk Level Prophylaxis Regimen 0-1 Low Early ambulation 2 Moderate Order ONE of the following: *Sequential Compression Device (SCD) *Heparin 5000 units SQ BID 3-4 Higher Order ONE of the following medications: *Heparin 5000 units SQ TID *Enoxaparin/Lovenox 40 mg SQ daily (WT < 150 kg, CrCl > 30 mL/min) *Enoxaparin/Lovenox 30 mg SQ daily (WT < 150 kg, CrCl > 10-29 mL/min) *Enoxaparin/Lovenox 30 mg SQ BID (WT < 150 kg, CrCl > 30 mL/min) AND/OR *Sequential Compression Device (SCD) 5 or more Highest Order ONE of the following medications: *Heparin 5000 units SQ TID (Preferred with Epidurals) *Enoxaparin/Lovenox 40 mg SQ daily (WT < 150 kg, CrCl > 30 mL/min) *Enoxaparin/Lovenox 30 mg SQ daily (WT < 150 kg, CrCl > 10-29 mL/min) *Enoxaparin/Lovenox 30 mg SQ BID (WT < 150 kg, CrCl > 30 mL/min) AND *Sequential Compression Device (SCD) Assessment and Plan - Plan This is a 71-year-old male patient with a known medical history of hypertension , history of CAD and prior [place] and history of stroke who presented to the ED with complaints of chest pain. Atypical chest pain -Patient has been admitted to observation center for rule out of ACS. -Serial EKGs and serial troponins have been ordered for ruling out ACS purposes. Initial troponin flat. Follow trend. -EKG reviewed showing controlled heart rate, with first-degree heart block as well as right bundle branch block. Follow trends. -Continue cardiac telemetry, monitor for any arrhythmias. -After review of records patient underwent a myocardial perfusion scan in June 2017, report reviewed showing EF greater than 70% and no ischemia. -Patient does follow with a instrument maintenance supervisor although does not remember his name. Has been seen within this last 6 months and no changes to his medications are reported. Acute kidney injury -Patient denies any history of chronic kidney disease. Will give IV fluids. Monitor labs in a.m. Encourage p.o. intake. -Creatinine 1.3 in August 2017. Today presents with creatinine of 1.8. History of CAD and prior [place] -Will continue on cardiac telemetry, monitor for any arrhythmias. Recent history of duodenal ulcer -Patient states he underwent an EGD 3 weeks ago and was diagnosed with duodenal ulcer. Patient does not remember gastroenterology's name. -He does state relief with use of Tums at home. Will continue as needed. Also continue Carafate. DVT prophylaxis: SCDs.
--- NOTE | 2017-12-24 17:48 | ECG ---
Date Performed: 12/24/2017 Time Performed: 14:54:00 PTAGE: 71 years EKG: Sinus rhythm WITH FIRST DEGREE AV BLOCK PATTERN CONSISTENT WITH PULMONARY DISEASE INCOMPLETE RIGHT BUNDLE BRANCH BLOCK Nonspecific T wave changes RIGHT VENTRICULAR HYPERTROPHY INFERIOR MYOCARDIAL INFARCTION ABNORMA L ECG Compared to prior electrocardiogram Rate has increased, incomplete right bundle branch block an d nonspecific T-wave changes are present. PREVIOUS TRACING : 12/12/2017 04.52 DOCTOR: Adrian Santos Interpretating Date/Time 12/24/2017 17:47:41
[2017-12-24] MEDS: Sod Chloride 0.9% Inj 1,000 ML IV.CONT SCH (18:18)
[2017-12-24] MEDS: QUEtiapine 100 MG Tablet PO SCH (18:19)
[2017-12-24] MEDS: ALPRAZolam 0.25 MG Tablet PO SCH (18:19)
[2017-12-24 19:41] LABS: Bilirubin,Urine Negative (Negative); Clarity,Urine Hazy (Clear); Color,Urine Yellow (Yellw/Straw); Glucose,Urine (UA) Negative (Negative); Hyaline Casts,Urine 25 /lpf (0-3); Leukocyte Esterase,Urine Negative (Negative); Nitrite,Urine Negative (Negative); Specific Gravity,Urine 1.018 (1.002-1.035)
[2017-12-24] MEDS: Sucralfate 1 GM Tablet PO SCH (20:02)
[2017-12-24] MEDS: Venlafaxine XR 75 MG Capsule PO SCH (20:02)
[2017-12-24 20:55] LABS: Chol/HDL Ratio 2.6 Ratio; HDL Cholesterol 62.5 mg/dL (40.0-60.0)
[2017-12-24] MEDS ORDERED: Finasteride 5 MG Tablet PO SCH (21:00)
[2017-12-24 22:16] LABS: Creatine Kinase 35 U/L (39-308)
[2017-12-25] MEDS ORDERED: Pantoprazole Inj 40 MG Vial IV.PUSH ONE (01:51)
[2017-12-25 04:28] LABS: Anion Gap 6 meq/L (5-15); Blood Urea Nitrogen 25 mg/dL (7-18); Calcium 8.5 mg/dL (8.5-10.1); Carbon Dioxide 26.8 meq/L (21.0-32.0); Chloride 106 meq/L (98-107); Glomerular Filtration Rate 49 mL/min (>89); Glucose,Random 73 mg/dL (74-106); Potassium 5.3 meq/L (3.5-5.1); Sodium 139 meq/L (136-145)
[2017-12-25 04:31] LABS: Creatine Kinase 121 U/L (39-308)
[2017-12-25] MEDS: Sod Chloride 0.9% Inj 1,000 ML IV.CONT SCH ×2 (07:19→17:04)
[2017-12-25] MEDS: QUEtiapine 100 MG Tablet PO SCH ×3 (08:11→17:04)
[2017-12-25] MEDS: Venlafaxine XR 75 MG Capsule PO SCH (08:11)
[2017-12-25] MEDS: ALPRAZolam 0.25 MG Tablet PO SCH ×3 (08:11→17:04)
[2017-12-25] MEDS: Sucralfate 1 GM Tablet PO SCH ×3 (08:12→17:04)
--- NOTE | 2017-12-25 08:53 | P.PN ---
Subjective Interval history: Follow up for chest pain. The patient reports his symptoms have resolved. Denies any chest pain or shortness of breath. Denies any other medical complaints. He reports he ate spicy foods prior to having the pains. He is aware that he has a duodenal ulcer. Denies any current abdominal pain or nausea/ vomiting. He is tolerating oral intake. He wants to go home today. Physical Exam Vital signs: Vital Signs 12/24/17 14:50 12/24/17 18:21 12/24/17 20:00 Temperature 97.5 F L 97.0 F L Pulse Rate 73 86 75 Respiratory Rate 17 19 16 Blood Pressure 116/59 L 123/74 155/78 H Pulse Oximetry 94 L 98 97 12/24/17 23:53 12/25/17 04:00 12/25/17 08:00 Temperature 97.8 F 98.7 F 98.6 F Pulse Rate 76 91 H 87 Respiratory Rate 17 16 16 Blood Pressure 125/69 130/88 137/82 Pulse Oximetry 95 95 97 12/25/17 08:06 Temperature Pulse Rate Respiratory Rate Blood Pressure 135/77 Pulse Oximetry Intake & Output 12/24/17 12/25/17 12/25/17 18:59 06:59 18:59 Intake Total 100 / 100 Balance 100 / 100 Intake: IV 100 / 100 Narrative: GENERAL: Well-nourished, well-developed pleasant elderly male patient in [facility]. SKIN: Warm and dry. No rash. HEENT: Normocephalic. Atraumatic. Pupils equal and round. Mucous membranes pink and moist. CARDIOVASCULAR: Regular rate and rhythm. No murmur appreciated. RESPIRATORY: No accessory muscle use. Clear to auscultation. Breath sounds equal bilaterally. GASTROINTESTINAL: Abdomen soft, non-tender, nondistended. Normoactive bowel sounds x4. MUSCULOSKELETAL: No obvious deformities. Extremities without clubbing, cyanosis , or edema. NEUROLOGICAL: Awake and alert. No obvious cranial nerve deficits. Motor grossly within normal limits. Moving all extremities spontaneously. Normal speech. PSYCHIATRIC: Appropriate mood and affect; insight and judgment normal. Results - Labs CBC & Chem 7: 12/24/17 15:20 12/25/17 14:31 Laboratory Results - last 24 hr 12/24/17 12/24/17 12/24/17 15:20 15:20 15:20 WBC 7.2 RBC 4.22 L Hgb 11.8 L Hct 36.3 L MCV 86.0 MCH 28.0 MCHC 32.5 RDW 14.2 Plt Count 242 MPV 7.7 Neut % (Auto) 62.7 Lymph % (Auto) 22.0 [place] % (Auto) 10.5 H Eos % (Auto) 4.3 H Baso % (Auto) 0.5 Neut # (Auto) 4.5 Lymph # (Auto) 1.6 [place] # (Auto) 0.8 Eos # (Auto) 0.3 Baso # (Auto) 0.0 WBC Differential . Differential Comment Auto diff final PT 10.1 INR 1.0 APTT 25.6 D-Dimer Quant (PE/DVT) 0.36 Sodium 139 Potassium 3.5 Chloride 103 Carbon Dioxide 26.7 Anion Gap 9 BUN 24 H Creatinine 1.83 H Estimated GFR 37 L Random Glucose 128 H Calcium 9.0 Magnesium 1.4 L Total Bilirubin 0.2 AST 14 L ALT 15 Alkaline Phosphatase 86 Total Creatine Kinase 39 Troponin I Less than 0.02 L B-Natriuretic Peptide Total Protein 6.5 Albumin 3.3 L Triglycerides Cholesterol LDL Cholesterol, Calc HDL Cholesterol Cholesterol/HDL Ratio Urine Color Urine Clarity Urine pH Ur Specific [place] Urine Protein Urine Glucose (UA) Urine Ketones Urine Occult Blood Urine Nitrate Urine Bilirubin Urine Urobilinogen Ur Leukocyte Esterase Hyaline Casts Micro UA Comment Urine Culture Comments 12/24/17 12/24/17 12/24/17 15:20 15:20 18:26 WBC RBC Hgb Hct MCV MCH MCHC RDW Plt Count MPV Neut % (Auto) Lymph % (Auto) [place] % (Auto) Eos % (Auto) Baso % (Auto) Neut # (Auto) Lymph # (Auto) [place] # (Auto) Eos # (Auto) Baso # (Auto) WBC Differential Differential Comment PT INR APTT D-Dimer Quant (PE/DVT) Sodium Potassium Chloride Carbon Dioxide Anion Gap BUN Creatinine Estimated GFR Random Glucose Calcium Magnesium Total Bilirubin AST ALT Alkaline Phosphatase Total Creatine Kinase Troponin I B-Natriuretic Peptide 2 Total Protein Albumin Triglycerides 243 H Cholesterol 163 LDL Cholesterol, Calc 52 HDL Cholesterol 62.5 H Cholesterol/HDL Ratio 2.60 Urine Color Yellow Urine Clarity Hazy H Urine pH 5.0 Ur Specific [place] 1.018 Urine Protein Negative Urine Glucose (UA) Negative Urine Ketones Negative Urine Occult Blood Negative Urine Nitrate Negative Urine Bilirubin Negative Urine Urobilinogen Less than 2 Ur Leukocyte Esterase Negative Hyaline Casts 25 Micro UA Comment Culture not ind Urine Culture Comments Culture not ind 12/24/17 12/25/17 21:09 03:22 WBC RBC Hgb Hct MCV MCH MCHC RDW Plt Count MPV Neut % (Auto) Lymph % (Auto) [place] % (Auto) Eos % (Auto) Baso % (Auto) Neut # (Auto) Lymph # (Auto) [place] # (Auto) Eos # (Auto) Baso # (Auto) WBC Differential Differential Comment PT INR APTT D-Dimer Quant (PE/DVT) Sodium 139 Potassium 5.3 H D Chloride 106 Carbon Dioxide 26.8 Anion Gap 6 BUN 25 H Creatinine 1.42 H Estimated GFR 49 L Random Glucose 73 L Calcium 8.5 Magnesium Total Bilirubin AST ALT Alkaline Phosphatase Total Creatine Kinase 35 L 121 Troponin I Less than 0.02 L Less than 0.02 L B-Natriuretic Peptide Total Protein Albumin Triglycerides Cholesterol LDL Cholesterol, Calc HDL Cholesterol Cholesterol/HDL Ratio Urine Color Urine Clarity Urine pH Ur Specific [place] Urine Protein Urine Glucose (UA) Urine Ketones Urine Occult Blood Urine Nitrate Urine Bilirubin Urine Urobilinogen Ur Leukocyte Esterase Hyaline Casts Micro UA Comment Urine Culture Comments - Imaging Impressions Chest X-Ray 12/24/17 15:14 CONCLUSION: Assessment and Plan - Plan 71-year-old male patient with a known medical history of hypertension, history of CAD and prior NC and history of stroke who presented to the ED with complaints of chest pain. Atypical chest pain -ACS ruled out with negative serial cardiac enzymes x3 and EKGs without acute ischemic changes. -Continue cardiac telemetry, monitor for any arrhythmias. -EMR reviewed, myocardial perfusion scan done in June 2017, report reviewed showing EF greater than 70% and no evidence of ischemia. -Patient does follow with a shoe parts caser although does not remember his name. Has been seen within this last 6 months and no changes to his medications are reported. -Chest pain resolved, strongly suspect GI related as patient with recent diagnosis of duodenal ulcer, admits to eating spicy meal prior to onset of symptoms, and gets relief with tums Acute kidney injury: Cr 1.83 upon arrival, previously 1.3 in August 2017. -Give IVF hydration -Avoid nephrotoxins -Repeat BMP shows improvement with Cr 1.42 Hyperkalemia: K 5.3 -giving IVF -repeat labs this afternoon Hypertension/CAD: chronic -Continue on cardiac telemetry, monitor for any arrhythmias. -Continue patient's amlodipine Duodenal ulcer: recent diagnosis -Patient states he underwent an EGD 3 weeks ago and was diagnosed with duodenal ulcer. Patient does not remember gastroenterology's name. -He does state relief with use of Tums at home, continue as needed. Also continue Carafate. DVT prophylaxis: SCDs. Discharge Planning: Likely discharge this afternoon if labs improve. 1700hrs: Chart reviewed, patient's labs much improved, Cr 1.18, K 3.6. Patient has remained asymptomatic throughout admission. Stable for discharge. Discussed with PT, ok to go to [facility] with [facility] [place]. Case management arranged [facility] [place] prior to discharge. Discharge patient to [facility] with [facility] [place] Condition on discharge: Stable Heart Healthy Diet as tolerated Ad Melly activity Rx written: Protonix 40mg daily Follow-up with primary care physician and cardiology
[2017-12-25] MEDS ORDERED: amLODIPine 5 MG Tablet PO SCH (09:00)
[2017-12-25] MEDS ORDERED: Famotidine 20 MG Tablet PO SCH (09:00)
--- NOTE | 2017-12-25 12:25 | P.DCO ---
- Physical Therapy Order: Evaluate and treat, Improve ambulation, Strength and gait training - Home Health Nursing Order: Medical education, Signs/symptoms of disease process, Nursing assessment with vital signs - Certification I have seen patient Sonny Santacruz on 12/25/17. My clinical findings support the need for the requested home health care services because: Limited mobility due to disease progression, Limited ability to care for self I certify that my clinical findings support that this patient is homebound because: Unsteady gait/balance, Unsafe to leave home unassisted, Unable to use public transportation
[2017-12-25 15:39] LABS: Calcium 8.4 mg/dL (8.5-10.1); Carbon Dioxide 25.6 meq/L (21.0-32.0); Potassium 3.6 meq/L (3.5-5.1)
== END 2017-12-25 08:30 ==
LOC: NEPGCP 14:40 → NEPE 14:40 → NEDA 14:40 → NEPGCP 18:52
PROVIDERS: ADMIT Internal Medicine; ATTEND Internal Medicine
DX: I10 Essential (primary) hypertension; R42 Dizziness and giddiness; K26.9 Duodenal ulcer, unspecified as acute or chronic, without hemorrhage or perforation; R06.02 Shortness of breath; Z86.73 Personal history of transient ischemic attack (TIA), and cerebral infarction without residual deficits; I25.2 Old myocardial infarction; R07.89 Other chest pain; R26.81 Unsteadiness on feet; I25.10 Atherosclerotic heart disease of native coronary artery without angina pectoris; I45.10 Unspecified right bundle-branch block; I44.0 Atrioventricular block, first degree; N40.0 Benign prostatic hyperplasia without lower urinary tract symptoms; N17.9 Acute kidney failure, unspecified

== ENCOUNTER 2018-03-19 19:13 | Observation (INO) ==
--- NOTE | 2018-03-19 20:39 | XR ---
EXAM DATE: 03/19/2018 8:05 PM EDT AGE/SEX: 72 years / Male INDICATIONS: Congestive heart failure. CLINICAL DATA: This is the patient's initial encounter. Patient reports that signs and symptoms have been present for 1 day and indicates a pain score of 4/10. MEDICAL/SURGICAL HISTORY: . Hypertension. Stroke. HI . Appendectomy . Angioplasty COMPARISON: [facility] [place], CHEST 1V SINGLE AP, 12/24/2017. . FINDINGS: There is parenchymal consolidation at the left lung base which is probably mostly in the lower lobe. A small left pleural effusion is possible as well. Right lung is reasonably clear. There is no pneumo thorax on either side. Heart size stable, upper limits of normal to mildly enlarged. CONCLUSION: 1. Left base infiltrate of most concern for pneumonia. 2. Right lung reasonably clear. No findings typical of CHF. Electronically signed by: Alpesh Mondragon MD 03/19/2018 8:38 PM EDT
[2018-03-19 21:01] LABS: Baso % (Auto) 0.6 % (0.0-2.0); Eos # (Auto) 0.4 th/mm3 (0.0-0.4); Eos % (Auto) 4.5 % (0.0-4.0); Hematocrit 33.9 % (39.0-51.0); Hemoglobin 11.2 gm/dL (13.0-17.0); Lymph % (Auto) 25.6 % (9.0-44.0); Mean Corpuscular HGB Conc 33.1 % (32.0-36.0); Mean Corpuscular Hemoglobin 27.6 pg (27.0-34.0); Mean Corpuscular Volume 83.2 fL (80.0-100.0); Mean Platelet Volume 7.6 fL (7.0-11.0); Mono # (Auto) 0.8 th/mm3 (0.0-0.9); Neut # (Auto) 4.7 th/mm3 (1.8-7.7); Neut % (Auto) 59.3 % (16.0-70.0); Platelet Count 230 th/mm3 (150-450); Red Blood Count 4.08 mil/mm3 (4.50-5.90); Red Cell Distribution Width 15.4 % (11.6-17.2); White Blood Count 7.9 th/mm3 (4.0-11.0)
--- NOTE | 2018-03-19 21:09 | CT ---
EXAM DATE: 03/19/2018 8:18 PM EDT AGE/SEX: 72 years / Male INDICATIONS: Dizziness. CLINICAL DATA: This is the patient's initial encounter. Patient reports that signs and symptoms have been present for 1 day and indicates a pain score of 0/10. MEDICAL/SURGICAL HISTORY: Hypertension. Stroke. None. RADIATION DOSE: 46.77 CTDI (mGy) COMPARISON: [facility] [place], [place] BRAIN W/O CONTRAST, 03/07/2016. . TECHNIQUE: CT of the head without contrast. Using automated exposure control and adjustment of the mA and/or kV according to patient size, radiation dose was kept as low as reasonably achievable to ob tain optimal diagnostic quality images. DICOM format image data is available electronically for revi ew and comparison. FINDINGS: Cerebrum: Stable encephalomalacia in the right parietal occipital region and also extending into rig ht frontal lobe. Underlying white matter ischemic changes as well. Posterior Fossa: The cerebellum and brainstem are intact. The 4th ventricle is midline. The cerebe llopontine angle is unremarkable. Extracranial: The visualized portion of the orbits is intact. Skull: The calvaria is intact. No evidence of skull fracture. CONCLUSION: 1. Stable encephalomalacic changes on the right side compared with 2015 with underlying white matter disease. No acute intracranial hemorrhage, mass or shift. 2. Mucosal thickening right maxillary sinus. . Electronically signed by: Neftali Tuttle MD 03/19/2018 9:08 PM EDT
[2018-03-19 21:12] LABS: Activated Partial Thrombo Time 23.3 sec (24.3-30.1)
[2018-03-19 21:29] LABS: Anion Gap 7 meq/L (5-15); Blood Urea Nitrogen 18 mg/dL (7-18); Calcium 8.2 mg/dL (8.5-10.1); Carbon Dioxide 27.1 meq/L (21.0-32.0); Chloride 105 meq/L (98-107); Glomerular Filtration Rate 59 mL/min (>89); Glucose,Random 82 mg/dL (74-106); Potassium 3.8 meq/L (3.5-5.1); Sodium 139 meq/L (136-145)
[2018-03-19 22:12] LABS: Bilirubin,Urine Negative (Negative); Clarity,Urine Clear (Clear); Color,Urine Yellow (Yellw/Straw); Glucose,Urine (UA) Negative (Negative); Hyaline Casts,Urine 3 /lpf (0-3); Leukocyte Esterase,Urine Negative (Negative); Mucus,Urine Few /lpf (Occasional); Nitrite,Urine Negative (Negative); Specific Gravity,Urine 1.017 (1.002-1.035)
--- NOTE | 2018-03-19 22:54 | ED ---
HPI General Chief Complaint: Dizziness Stated Complaint: Dizziness Complaint Time Seen by Provider: 03/19/18 20:05 Source: patient Mode of arrival: ambulatory Limitations: no limitations History of Present Illness HPI Narrative: 72-year-old male presents to the emergency department from assisted living facility for complaint of progressively worsening dizziness and episodes of chest pain over the past 7 days. Due to persistence of symptoms decided to come to the emergency room for evaluation. Patient has had falls but denies any head injury. Patient denies head injury neck pain no upper or lower extremity numbness tingling or weakness or back pain. Patient has intermittent chest pain. Patient has extensive past medical history of CAD previous angioplasty hypertension dyslipidemia and CVA. Patient has some residual left-sided weakness secondary to prior CVA. Patient does not report any fever or chills. Patient has not noticed any palpitations. No near syncope or syncope. Patient denies any black or tarry stools. Patient states movement makes his symptoms worse remaining still provide some relief. MD complaint: Reports dizziness and lightheadedness Onset (ago): day(s) (7) Timing: gradual onset and waxing/waning Description: Reports lightheadedness History of similar episodes: Yes History of trauma: No Severity: moderate Relieving factors: remaining still Exacerbating factors: movement, position and exertion Associated symptoms: Reports chest pain (left), chills, malaise, shortness of breath (intermittent) and weakness; Denies confusion, diaphoresis, fever, rash, syncope, vision changes, nausea and vomiting Related Data Home Medications Medication Instructions Recorded Confirmed alprazolam 0.5 mg PO TID 12/11/17 03/19/18 amlodipine [Norvasc] 5 mg PO DAILY 12/11/17 03/19/18 finasteride 5 mg PO HS 12/11/17 03/19/18 meclizine 25 mg PO TID PRN 12/11/17 03/19/18 melatonin 3 mg PO HS 12/11/17 03/19/18 quetiapine 100 mg PO TID 12/11/17 03/19/18 sucralfate 1 g PO QID 12/11/17 03/19/18 tamsulosin 0.8 mg PO DAILY 12/11/17 03/19/18 tramadol 50 mg PO TID 12/11/17 03/19/18 ziprasidone HCl 40 mg PO TID 12/11/17 03/19/18 calcium carbonate [Tums] 2 tab PO Q4-6H PRN 12/24/17 03/19/18 nitroglycerin [Nitrostat] 0.4 mg SUBLINGUAL Q5-15M PRN 12/24/17 03/19/18 venlafaxine 150 mg PO BID 12/24/17 03/19/18 aspirin 325 mg PO DAILY 03/19/18 03/19/18 atorvastatin 40 mg PO DAILY 03/19/18 03/19/18 esomeprazole magnesium [Nexium] 40 mg PO DAILY 03/19/18 03/19/18 ranitidine HCl 150 mg PO BID 03/19/18 03/19/18 Previous Rx's Medication Instructions Recorded levofloxacin [Levaquin] 750 mg PO DAILY 7 Days #7 tab 03/20/18 Allergies Allergy/AdvReac Type Severity Reaction Status Date / Time No Known Allergies Allergy Verified 03/19/18 20:03 Review of Systems ROS: all other systems reviewed are negative [facility] Medical History Medical History Hypertension (Acute) Stroke (Acute) Myocardial infarct (Acute) Chest pain (Acute) Surgical History Surgical History H/O angioplasty (Acute) History of appendectomy (Acute) Family History Family History Other No family history of cardiovascular disease Social History Social History Substance History: No History of Abuse Second Hand Smoke Exposure: No Smoking Status: Never smoker How Often Do You Have a Drink Containing Alcohol: Never Recent Travel in [place] within the Last 8 Weeks: No Recent Out of Country Travel within the Last 8 Weeks: No Exam Narrative Exam Narrative: GENERAL: Well-developed well-nourished male no acute distress no respiratory distress; gcs 15 SKIN: Focused skin assessment warm/dry. HEAD: Atraumatic. Normocephalic. EYES: Pupils equal and round. No scleral icterus. No injection or drainage. ENT: No nasal bleeding or discharge. Mucous membranes pink and moist. NECK: Trachea midline. No JVD. CARDIOVASCULAR: Regular rate and rhythm. No murmur appreciated. RESPIRATORY: No accessory muscle use. Clear to auscultation. Breath sounds equal bilaterally. GASTROINTESTINAL: Abdomen soft, non-tender, nondistended. Hepatic and splenic margins not palpable. MUSCULOSKELETAL: No obvious deformities. No clubbing. No cyanosis. No edema. NEUROLOGICAL: Awake and alert. No obvious cranial nerve deficits. Motor grossly within normal limits, except weakness LLE>LUE. Mild chronic slurring speech. PSYCHIATRIC: Appropriate mood and affect; insight and judgment normal. Course Consultations Consultation #1: discussed with and accepted by Dr Cardenas for admission Initial Documented Vital Signs Temperature 98.1 F 03/19/18 19:55 Pulse Rate 72 03/19/18 19:55 Respiratory Rate 20 03/19/18 19:55 Blood Pressure 149/84 H 03/19/18 19:55 Pulse Oximetry 96 03/19/18 19:55 Last Documented Vital Signs Temperature 98.5 F 03/20/18 12:00 Pulse Rate 67 03/20/18 12:00 Respiratory Rate 16 03/20/18 12:00 Blood Pressure 164/82 H 03/20/18 12:00 Pulse Oximetry 85 L 03/20/18 12:00 Medical Decision Making MDM Narrative Medical decision making narrative: 72-year-old male with extensive past medical history presents for progressively worsening dizziness with intermittent chest pain left-sided over the past 7 days. No fever no chills no productive cough no hemoptysis. Symptoms worsened with exertion and movement some relief with rest placed on gambling monitor IV access obtained specimens collected and sent for resulting testing. Chest x-ray and CT brain noncontrast ordered. EKG shows no acute ST elevation or injury pattern Chest x-ray concerning for left lower lobe infiltrate; CT brain noncontrast shows no acute abnormality Patient's case discussed with on-call [facility] [place] medicine service for admission for possible community-acquired pneumonia as well following serial cardiac enzymes for possible cardiac rhythm related etiology of dizziness. Medical Screen Exam Complete: Yes Emergency Medical Condition: Yes Differential Diagnosis Differential Diagnosis: Dizziness, TIA, CVA, arrhythmia, ACS, MS, pneumonia, SIRS/sepsis Medical Records Medical records reviewed: Yes I reviewed the patient's medical records. Lab Data Lab results reviewed: Yes I reviewed the patient's lab results. Result diagrams: 03/20/18 03:09 03/20/18 02:10 Lab Results 03/19/18 03/19/18 03/19/18 Range/Units 20:05 20:05 20:05 WBC (4.0-11.0) th/mm3 RBC (4.50-5.90) mil/mm3 Hgb (13.0-17.0) gm/dL Hct (39.0-51.0) % MCV (80.0-100.0) fL MCH (27.0-34.0) pg MCHC (32.0-36.0) % RDW (11.6-17.2) % Plt Count (150-450) th/mm3 MPV (7.0-11.0) fL Neut % (Auto) (16.0-70.0) % Lymph % (Auto) (9.0-44.0) % [place] % (Auto) (0.0-8.0) % Eos % (Auto) (0.0-4.0) % Baso % (Auto) (0.0-2.0) % Neut # (Auto) (1.8-7.7) th/mm3 Lymph # (Auto) (1.0-4.8) th/mm3 [place] # (Auto) (0.0-0.9) th/mm3 Eos # (Auto) (0.0-0.4) th/mm3 Baso # (Auto) (0.0-0.2) th/mm3 WBC Differential Differential Comment PT 10.0 (9.8-11.6) sec INR 1.0 Ratio APTT 23.3 L (24.3-30.1) sec Sodium (136-145) meq/L Potassium (3.5-5.1) meq/L Chloride (98-107) meq/L Carbon Dioxide (21.0-32.0) meq/L Anion Gap (5-15) meq/L BUN (7-18) mg/dL Creatinine (0.60-1.30) mg/dL Estimated GFR (>89) mL/min Random Glucose (74-106) mg/dL Calcium (8.5-10.1) mg/dL Magnesium 1.8 (1.5-2.5) mg/dL Total Creatine Kinase (39-308) U/L Troponin I (0.02-0.05) ng/mL B-Natriuretic Peptide 7 (0-100) pg/mL Urine Color (Yellw/Straw) Urine Clarity (Clear) Urine pH (5.0-8.5) Ur Specific [place] (1.002-1.035) Urine Protein (Neg-Trace) mg/dL Urine Glucose (UA) (Negative) mg/dL Urine Ketones (Negative) mg/dL Urine Occult Blood (Negative) Urine Nitrate (Negative) Urine Bilirubin (Negative) Urine Urobilinogen (Less than 2) mg/dL Ur Leukocyte Esterase (Negative) Urine RBC (0-3) /hpf Urine WBC (0-5) /hpf Hyaline Casts (0-3) /lpf Urine Mucus (Occasional) /lpf Micro UA Comment Ur Microscopic Review Urine Culture Comments 03/19/18 03/19/18 03/19/18 Range/Units 20:05 20:05 21:40 WBC 7.9 (4.0-11.0) th/mm3 RBC 4.08 L (4.50-5.90) mil/mm3 Hgb 11.2 L (13.0-17.0) gm/dL Hct 33.9 L (39.0-51.0) % MCV 83.2 (80.0-100.0) fL MCH 27.6 (27.0-34.0) pg MCHC 33.1 (32.0-36.0) % RDW 15.4 (11.6-17.2) % Plt Count 230 (150-450) th/mm3 MPV 7.6 (7.0-11.0) fL Neut % (Auto) 59.3 (16.0-70.0) % Lymph % (Auto) 25.6 (9.0-44.0) % [place] % (Auto) 10.0 H (0.0-8.0) % Eos % (Auto) 4.5 H (0.0-4.0) % Baso % (Auto) 0.6 (0.0-2.0) % Neut # (Auto) 4.7 (1.8-7.7) th/mm3 Lymph # (Auto) 2.0 (1.0-4.8) th/mm3 [place] # (Auto) 0.8 (0.0-0.9) th/mm3 Eos # (Auto) 0.4 (0.0-0.4) th/mm3 Baso # (Auto) 0.0 (0.0-0.2) th/mm3 WBC Differential . Differential Comment Auto diff final PT (9.8-11.6) sec INR Ratio APTT (24.3-30.1) sec Sodium 139 (136-145) meq/L Potassium 3.8 (3.5-5.1) meq/L Chloride 105 (98-107) meq/L Carbon Dioxide 27.1 (21.0-32.0) meq/L Anion Gap 7 (5-15) meq/L BUN 18 (7-18) mg/dL Creatinine 1.21 (0.60-1.30) mg/dL Estimated GFR 59 L (>89) mL/min Random Glucose 82 (74-106) mg/dL Calcium 8.2 L (8.5-10.1) mg/dL Magnesium (1.5-2.5) mg/dL Total Creatine Kinase (39-308) U/L Troponin I Less than 0.02 L (0.02-0.05) ng/mL B-Natriuretic Peptide (0-100) pg/mL Urine Color Yellow (Yellw/Straw) Urine Clarity Clear (Clear) Urine pH 6.0 (5.0-8.5) Ur Specific [place] 1.017 (1.002-1.035) Urine Protein Negative (Neg-Trace) mg/dL Urine Glucose (UA) Negative (Negative) mg/dL Urine Ketones Negative (Negative) mg/dL Urine Occult Blood Negative (Negative) Urine Nitrate Negative (Negative) Urine Bilirubin Negative (Negative) Urine Urobilinogen Less than 2 (Less than 2) mg/dL Ur Leukocyte Esterase Negative (Negative) Urine RBC Less than 1 (0-3) /hpf Urine WBC 2 (0-5) /hpf Hyaline Casts 3 (0-3) /lpf Urine Mucus Few H (Occasional) /lpf Micro UA Comment Culture not ind Ur Microscopic Review Not Reportable Urine Culture Comments Culture not ind 03/20/18 03/20/18 03/20/18 Range/Units 02:10 03:09 08:40 WBC 6.9 (4.0-11.0) th/mm3 RBC 4.31 L (4.50-5.90) mil/mm3 Hgb 11.8 L (13.0-17.0) gm/dL Hct 36.5 L (39.0-51.0) % MCV 84.7 (80.0-100.0) fL MCH 27.4 (27.0-34.0) pg MCHC 32.4 (32.0-36.0) % RDW 15.2 (11.6-17.2) % Plt Count 209 (150-450) th/mm3 MPV 7.3 (7.0-11.0) fL Neut % (Auto) 60.2 (16.0-70.0) % Lymph % (Auto) 22.8 (9.0-44.0) % [place] % (Auto) 11.1 H (0.0-8.0) % Eos % (Auto) 5.3 H (0.0-4.0) % Baso % (Auto) 0.6 (0.0-2.0) % Neut # (Auto) 4.2 (1.8-7.7) th/mm3 Lymph # (Auto) 1.6 (1.0-4.8) th/mm3 [place] # (Auto) 0.8 (0.0-0.9) th/mm3 Eos # (Auto) 0.4 (0.0-0.4) th/mm3 Baso # (Auto) 0.0 (0.0-0.2) th/mm3 WBC Differential . Differential Comment Auto diff final PT (9.8-11.6) sec INR Ratio APTT (24.3-30.1) sec Sodium 141 (136-145) meq/L Potassium 3.9 (3.5-5.1) meq/L Chloride 108 H (98-107) meq/L Carbon Dioxide 26.8 (21.0-32.0) meq/L Anion Gap 6 (5-15) meq/L BUN 17 (7-18) mg/dL Creatinine 1.16 (0.60-1.30) mg/dL Estimated GFR 62 L (>89) mL/min Random Glucose 86 (74-106) mg/dL Calcium 8.8 (8.5-10.1) mg/dL Magnesium (1.5-2.5) mg/dL Total Creatine Kinase 41 56 (39-308) U/L Troponin I Less than 0.02 L Less than 0.02 L (0.02-0.05) ng/mL B-Natriuretic Peptide (0-100) pg/mL Urine Color (Yellw/Straw) Urine Clarity (Clear) Urine pH (5.0-8.5) Ur Specific [place] (1.002-1.035) Urine Protein (Neg-Trace) mg/dL Urine Glucose (UA) (Negative) mg/dL Urine Ketones (Negative) mg/dL Urine Occult Blood (Negative) Urine Nitrate (Negative) Urine Bilirubin (Negative) Urine Urobilinogen (Less than 2) mg/dL Ur Leukocyte Esterase (Negative) Urine RBC (0-3) /hpf Urine WBC (0-5) /hpf Hyaline Casts (0-3) /lpf Urine Mucus (Occasional) /lpf Micro UA Comment Ur Microscopic Review Urine Culture Comments Imaging Data Radiologist's impression: Chest X-Ray 03/19/18 20:05 CONCLUSION: 1. Left base infiltrate of most concern for pneumonia. 2. Right lung reasonably clear. No findings typical of CHF. Head CT 03/19/18 20:05 CONCLUSION: 1. Stable encephalomalacic changes on the right side compared with 2015 with underlying white matter disease. No acute intracranial hemorrhage, mass or shift. 2. Mucosal thickening right maxillary sinus. . Discharge Plan Discharge Disposition Patient Disposition: 30 Still Patient Discharge Condition Condition: Stable Discharge Order Discharge Orders: Discharge Order (Routine); Ordered 03/20/18 Ordered By: Joana Coe Discharge Details Anticipated Discharge Date: 03/20/18 Discharge Comment: Ok to discharge back to [facility] with [facility]. Diagnosis: Dizziness, Chest pain, Pneumonia Physicians Team ED Provider: Renetta Araya Primary Care Provider: Justice Sotelo Attending Provider: Che Lewis Status ED Status: Left Department Discharge Information Discharge Date/Time: 03/20/18 00:49
[2018-03-19] MEDS ORDERED: Acetaminophen 325 MG Tablet PO PRN (23:38)
[2018-03-19] MEDS ORDERED: Bisacodyl 10 MG Supp RECTAL PRN (23:39)
--- NOTE | 2018-03-19 23:43 | P.HP ---
History of Present Illness Service: [facility] Primary Care Physician: Justice Sotelo MD History of Present Illness: 72-year-old male past medical history significant for BPH, hypertension, hyperlipidemia, history of CVA and coronary artery disease status post [place] presents to the emergency department for the evaluation of chest pain, dizziness , lightheadedness, shortness of breath and lower back pain. The patient is an extremely poor historian. During our discussion he complains mainly of lower back pain. When asked if he had chest pain he says that he had some earlier that is now resolved. He denies any fever/chills. No cough. No abdominal pain. No nausea/vomiting/diarrhea. No lateralizing signs/symptoms. 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 - Medical History Medical History: Medical History (Last Updated 03/19/18 @ 23:34 by Pinky Cardenas MD) Hypertension (Acute) Stroke (Acute) Myocardial infarct (Acute) BPH (benign prostatic hyperplasia) Hyperlipidemia - Surgical History Surgical History: Surgical History (Last Reviewed 03/19/18 @ 23:34 by Pinky Cardenas MD) H/O angioplasty (Acute) History of appendectomy (Acute) - Family History Family History: Family History (Last Reviewed 03/19/18 @ 23:34 by Pinky Cardenas MD) Other No family history of cardiovascular disease - Tobacco History Second Hand Smoke Exposure: No Smoking Status: Never smoker - Alcohol History How Often Do You Have a Drink Containing Alcohol: Never - Substance Use History Substance History: No History of Abuse - Travel History Recent Travel in the [facility] Within the Last 8 Weeks: No Recent Travel Out of the Country Within the Last 8 Weeks: No Medications and Allergies Allergies Allergy/AdvReac Type Severity Reaction Status Date / Time No Known Allergies Allergy Verified 03/19/18 20:03 Home Medications Medication Instructions Recorded Confirmed Type alprazolam 0.5 mg PO TID 12/11/17 03/19/18 History amlodipine [Norvasc] 5 mg PO DAILY 12/11/17 03/19/18 History finasteride 5 mg PO HS 12/11/17 03/19/18 History meclizine 25 mg PO TID PRN 12/11/17 03/19/18 History melatonin 3 mg PO HS 12/11/17 03/19/18 History quetiapine 100 mg PO TID 12/11/17 03/19/18 History sucralfate 1 g PO QID 12/11/17 03/19/18 History tamsulosin 0.8 mg PO DAILY 12/11/17 03/19/18 History tramadol 50 mg PO TID 12/11/17 03/19/18 History ziprasidone HCl 40 mg PO TID 12/11/17 03/19/18 History calcium carbonate [Tums] 2 tab PO Q4-6H PRN 12/24/17 03/19/18 History nitroglycerin [Nitrostat] 0.4 mg SUBLINGUAL Q5-15M PRN 12/24/17 03/19/18 History venlafaxine 150 mg PO BID 12/24/17 03/19/18 History aspirin 325 mg PO DAILY 03/19/18 03/19/18 History atorvastatin 40 mg PO DAILY 03/19/18 03/19/18 History esomeprazole magnesium [Nexium] 40 mg PO DAILY 03/19/18 03/19/18 History oxybutynin chloride 5 mg PO BID 03/19/18 03/19/18 History ranitidine HCl 150 mg PO BID 03/19/18 03/19/18 History Exam Vital signs: Vital Signs 03/19/18 19:55 03/19/18 21:10 Temperature 98.1 F Pulse Rate 72 Respiratory Rate 20 20 Blood Pressure 149/84 H Pulse Oximetry 96 Intake & Output 03/19/18 03/19/18 03/20/18 06:59 18:59 06:59 Weight 81.647 kg Narrative: Gen.: No acute distress Head: Normocephalic. Atraumatic. EENT: Pupils equal round and reactive to light. Nose without drainage. Airway intact. Throat without injection. Cardiovascular: Regular rate and rhythm. No murmurs, rubs or gallops. Respiratory: Lungs clear to auscultation bilaterally. No wheezes or rhonchi. Abdomen: Soft, nontender, nondistended. No peritoneal signs. Musculoskeletal: No gross deformities. No edema. Skin: No obvious rashes or erythema. Neuro: Sensory and motor grossly intact. Cranial nerves II through XII grossly intact. Results - Labs CBC & Chem 7: 03/19/18 20:05 03/19/18 20:05 Labs: Laboratory Results - last 24 hr 03/19/18 03/19/18 03/19/18 20:05 20:05 20:05 WBC RBC Hgb Hct MCV MCH MCHC RDW Plt Count MPV Neut % (Auto) Lymph % (Auto) Lyman % (Auto) Eos % (Auto) Baso % (Auto) Neut # (Auto) Lymph # (Auto) Lyman # (Auto) Eos # (Auto) Baso # (Auto) WBC Differential Differential Comment PT 10.0 INR 1.0 APTT 23.3 L Sodium Potassium Chloride Carbon Dioxide Anion Gap BUN Creatinine Estimated GFR Random Glucose Calcium Magnesium 1.8 Troponin I B-Natriuretic Peptide 7 Urine Color Urine Clarity Urine pH Ur Specific [place] Urine Protein Urine Glucose (UA) Urine Ketones Urine Occult Blood Urine Nitrate Urine Bilirubin Urine Urobilinogen Ur Leukocyte Esterase Urine RBC Urine WBC Hyaline Casts Urine Mucus Micro UA Comment Ur Microscopic Review Urine Culture Comments 03/19/18 03/19/18 03/19/18 20:05 20:05 21:40 WBC 7.9 RBC 4.08 L Hgb 11.2 L Hct 33.9 L MCV 83.2 MCH 27.6 MCHC 33.1 RDW 15.4 Plt Count 230 MPV 7.6 Neut % (Auto) 59.3 Lymph % (Auto) 25.6 Lyman % (Auto) 10.0 H Eos % (Auto) 4.5 H Baso % (Auto) 0.6 Neut # (Auto) 4.7 Lymph # (Auto) 2.0 Lyman # (Auto) 0.8 Eos # (Auto) 0.4 Baso # (Auto) 0.0 WBC Differential . Differential Comment Auto diff final PT INR APTT Sodium 139 Potassium 3.8 Chloride 105 Carbon Dioxide 27.1 Anion Gap 7 BUN 18 Creatinine 1.21 Estimated GFR 59 L Random Glucose 82 Calcium 8.2 L Magnesium Troponin I Less than 0.02 L B-Natriuretic Peptide Urine Color Yellow Urine Clarity Clear Urine pH 6.0 Ur Specific [place] 1.017 Urine Protein Negative Urine Glucose (UA) Negative Urine Ketones Negative Urine Occult Blood Negative Urine Nitrate Negative Urine Bilirubin Negative Urine Urobilinogen Less than 2 Ur Leukocyte Esterase Negative Urine RBC Less than 1 Urine WBC 2 Hyaline Casts 3 Urine Mucus Few H Micro UA Comment Culture not ind Ur Microscopic Review Not Reportable Urine Culture Comments Culture not ind - Imaging Impressions Chest X-Ray 03/19/18 20:05 CONCLUSION: 1. Left base infiltrate of most concern for pneumonia. 2. Right lung reasonably clear. No findings typical of CHF. Head CT 03/19/18 20:05 CONCLUSION: 1. Stable encephalomalacic changes on the right side compared with 2015 with underlying white matter disease. No acute intracranial hemorrhage, mass or shift. 2. Mucosal thickening right maxillary sinus. . Caprini VTE Risk Assessment Caprini VTE Risk Assessment: Moderate/High Risk (score >= 2) Caprini Risk Assessment Model: Point Value = 1 Point Value = 2 Point Value = 3 Point Value = 5 Age 41-60 Minor surgery BMI > 25 kg/m2 Swollen legs Varicose veins or History of unexplained or recurrent spontaneous Oral contraceptives or hormone replacement Sepsis (< 1 month) Serious lung disease, including pneumonia (< 1 month) Abnormal pulmonary function Acute myocardial infarction Congestive heart failure (< 1 month) History of inflammatory bowel disease Medical patient at bed rest Age 61-74 Arthroscopic surgery Major open surgery (> 45 min) Laparoscopic surgery (> 45 min) Malignancy Confined to bed (> 72 hours) Immobilizing plaster cast Central venous access Age >= 75 History of VTE Family history of VTE Factor V Leiden Prothrombin [id number] Lupus anticoagulant Anticardiolipin antibodies Elevated serum homocysteine Heparin-induced thrombocytopenia Other congenital or acquired thrombophilia Stroke (< 1 month) Elective arthroplasty Hip, pelvis, or leg fracture Acute spinal cord injury (< 1 month) Prophylaxis Regimen: Total Risk Factor Score Risk Level Prophylaxis Regimen 0-1 Low Early ambulation 2 Moderate Order ONE of the following: *Sequential Compression Device (SCD) *Heparin 5000 units SQ BID 3-4 Higher Order ONE of the following medications: *Heparin 5000 units SQ TID *Enoxaparin/Lovenox 40 mg SQ daily (WT < 150 kg, CrCl > 30 mL/min) *Enoxaparin/Lovenox 30 mg SQ daily (WT < 150 kg, CrCl > 10-29 mL/min) *Enoxaparin/Lovenox 30 mg SQ BID (WT < 150 kg, CrCl > 30 mL/min) AND/OR *Sequential Compression Device (SCD) 5 or more Highest Order ONE of the following medications: *Heparin 5000 units SQ TID (Preferred with Epidurals) *Enoxaparin/Lovenox 40 mg SQ daily (WT < 150 kg, CrCl > 30 mL/min) *Enoxaparin/Lovenox 30 mg SQ daily (WT < 150 kg, CrCl > 10-29 mL/min) *Enoxaparin/Lovenox 30 mg SQ BID (WT < 150 kg, CrCl > 30 mL/min) AND *Sequential Compression Device (SCD) Assessment and Plan - Plan Assessment/plan: 1. Pneumonia Chest x-ray significant for left base infiltrate, personally reviewed Azithromycin/Rocephin 2. Chest pain EKG negative for ischemia, personally reviewed Initial troponin negative Rule out pending; serial troponins/EKGs 3. Hypertension/hyperlipidemia/BPH Continue home medications FEN N.p.o. Electrolytes: Urine replete as needed NS at 100 cc/hour Heparin
[2018-03-20] MEDS: Heparin - SQ 10,000 UNITS/ML Vial SQ SCH ×2 (00:23→10:11)
[2018-03-20] MEDS: Sod Chloride 0.9% Inj 1,000 ML IV.CONT SCH ×2 (00:24→13:55)
[2018-03-20] MEDS ORDERED: Azithromycin Inj 500 MG in Sodium Chlor 0.9% Inj 250 ML IV.SIG SCH (01:00)
[2018-03-20 02:44] LABS: Anion Gap 6 meq/L (5-15); Blood Urea Nitrogen 17 mg/dL (7-18); Calcium 8.8 mg/dL (8.5-10.1); Carbon Dioxide 26.8 meq/L (21.0-32.0); Chloride 108 meq/L (98-107); Glomerular Filtration Rate 62 mL/min (>89); Glucose,Random 86 mg/dL (74-106); Potassium 3.9 meq/L (3.5-5.1); Sodium 141 meq/L (136-145)
[2018-03-20 02:48] LABS: Creatine Kinase 41 U/L (39-308)
[2018-03-20 03:29] LABS: Baso % (Auto) 0.6 % (0.0-2.0); Eos # (Auto) 0.4 th/mm3 (0.0-0.4); Eos % (Auto) 5.3 % (0.0-4.0); Hematocrit 36.5 % (39.0-51.0); Hemoglobin 11.8 gm/dL (13.0-17.0); Lymph # (Auto) 1.6 th/mm3 (1.0-4.8); Lymph % (Auto) 22.8 % (9.0-44.0); Mean Corpuscular HGB Conc 32.4 % (32.0-36.0); Mean Corpuscular Hemoglobin 27.4 pg (27.0-34.0); Mean Corpuscular Volume 84.7 fL (80.0-100.0); Mean Platelet Volume 7.3 fL (7.0-11.0); Mono # (Auto) 0.8 th/mm3 (0.0-0.9); Mono % (Auto) 11.1 % (0.0-8.0); Neut # (Auto) 4.2 th/mm3 (1.8-7.7); Neut % (Auto) 60.2 % (16.0-70.0); Platelet Count 209 th/mm3 (150-450); Red Blood Count 4.31 mil/mm3 (4.50-5.90); Red Cell Distribution Width 15.2 % (11.6-17.2); White Blood Count 6.9 th/mm3 (4.0-11.0)
[2018-03-20] MEDS ORDERED: ALPRAZolam 0.5 MG Tablet PO PRN (08:42)
[2018-03-20] MEDS ORDERED: ALPRAZolam 0.5 MG Tablet PO SCH (09:00)
[2018-03-20] MEDS ORDERED: amLODIPine 5 MG Tablet PO SCH (09:00)
[2018-03-20] MEDS ORDERED: Aspirin 325 MG Tablet PO SCH (09:00)
[2018-03-20] MEDS ORDERED: Famotidine 20 MG Tablet PO SCH (09:00)
[2018-03-20] MEDS ORDERED: Venlafaxine XR 75 MG Capsule PO SCH (09:00)
--- NOTE | 2018-03-20 09:23 | P.DCO ---
- Diagnosis (1) CAD (coronary artery disease) Status: Acute (2) History of coronary angioplasty Status: Acute (3) Hypertension Status: Acute (4) Hyperlipidemia Status: Acute (5) History of CVA (cerebrovascular accident) Status: Acute (6) Pneumonia Status: Acute - Physical Therapy Order: Evaluate and treat, Improve ambulation, Strength and gait training - Home Health Nursing Order: Medical education, Signs/symptoms of disease process, Nursing assessment with vital signs - Case Management Consult Yes - Certification I have seen patient Sonny Santacruz on 03/20/18. My clinical findings support the need for the requested home health care services because: Limited mobility due to disease progression, Deconditioned with increased weakness, Limited ability to care for self, High risk of falls I certify that my clinical findings support that this patient is homebound because: Impaired cognitive ability/safety, Unsteady gait/balance, Unsafe to leave home unassisted, Unable to use public transportation (6) Pneumonia Qualifiers: Pneumonia type: due to unspecified organism Laterality: left Lung location: lower lobe of lung Qualified Code(s): J18.1 - Lobar pneumonia, unspecified organism
[2018-03-20 09:28] LABS: Creatine Kinase 56 U/L (39-308)
--- NOTE | 2018-03-20 09:33 | P.PN ---
Subjective Interval history: Follow-up for pneumonia. Patient reports feeling better today. States his cough has improved. Denies any sputum production. Denies any fevers or chills. Denies ever having any chest pain. He complains of shoulder pain and low back pain which she states is chronic for him. His O2 sat stable on room air. He wants to go home. He states he lives in an [place]. He agrees to home health care arrangements. Physical Exam Vital signs: Vital Signs 03/19/18 19:55 03/19/18 20:15 03/19/18 20:45 Temperature 98.1 F Pulse Rate 72 70 72 Respiratory Rate 20 16 18 Blood Pressure 149/84 H 150/78 H 161/87 H Pulse Oximetry 96 95 96 03/19/18 21:00 03/19/18 21:05 03/19/18 21:10 Temperature Pulse Rate 76 84 80 Respiratory Rate 18 20 18 Blood Pressure 181/77 H 130/79 144/83 H Pulse Oximetry 95 95 95 03/19/18 21:15 03/19/18 22:00 03/19/18 23:00 Temperature Pulse Rate 84 64 66 Respiratory Rate 19 20 18 Blood Pressure 133/69 129/70 128/80 Pulse Oximetry 95 95 95 03/20/18 00:00 03/20/18 04:00 03/20/18 04:02 Temperature 98.8 F 98.5 F Pulse Rate 75 93 H 74 Respiratory Rate 18 18 18 Blood Pressure 187/91 H 179/93 H Pulse Oximetry 95 95 03/20/18 08:00 Temperature 98.7 F Pulse Rate 84 Respiratory Rate 20 Blood Pressure 156/86 H Pulse Oximetry 97 Intake & Output 03/19/18 03/20/18 03/20/18 18:59 06:59 18:59 Intake Total 350 / 350 Output Total 650 / 650 Balance -300 / -300 Weight 81.647 kg Intake: IV 350 / 350 Azithromycin Inj 500 MG In NS 250 / 250 Inj 250 ML @ 250 mls/hr IV.SIG Q24H DAVID Rx#:[id number] Rocephin Inj 1,000 MG In NS Inj 100 / 100 100 ML @ 200 mls/hr IV.SIG Q24H DAVID Rx#:[id number] Output: Urine 650 / 650 Other: # Incontinent Voids 1 Date of Last Bowel Movement 03/19/18 Weight On Admission 81.647 kg Narrative: GENERAL: Well-nourished, well-developed elderly male patient in [facility]. SKIN: Warm and dry. No rash. HEENT: Normocephalic. Atraumatic. Pupils equal and round. Mucous membranes pink and moist. NECK: Supple. Trachea midline. CARDIOVASCULAR: Regular rate and rhythm. No murmur appreciated. RESPIRATORY: No accessory muscle use. Clear to auscultation. Breath sounds equal bilaterally. GASTROINTESTINAL: Abdomen soft, non-tender, nondistended. Normoactive bowel sounds x4. MUSCULOSKELETAL: No obvious deformities. Extremities without clubbing, cyanosis , or edema. NEUROLOGICAL: Awake and alert. No obvious cranial nerve deficits. Motor grossly within normal limits. Moving all extremities spontaneously. Normal speech. Results - Labs CBC & Chem 7: 03/20/18 03:09 03/20/18 02:10 Laboratory Results - last 24 hr 03/19/18 03/19/18 03/19/18 20:05 20:05 20:05 WBC RBC Hgb Hct MCV MCH MCHC RDW Plt Count MPV Neut % (Auto) Lymph % (Auto) Richardson % (Auto) Eos % (Auto) Baso % (Auto) Neut # (Auto) Lymph # (Auto) Richardson # (Auto) Eos # (Auto) Baso # (Auto) WBC Differential Differential Comment PT 10.0 INR 1.0 APTT 23.3 L Sodium Potassium Chloride Carbon Dioxide Anion Gap BUN Creatinine Estimated GFR Random Glucose Calcium Magnesium 1.8 Total Creatine Kinase Troponin I B-Natriuretic Peptide 7 Urine Color Urine Clarity Urine pH Ur Specific [place] Urine Protein Urine Glucose (UA) Urine Ketones Urine Occult Blood Urine Nitrate Urine Bilirubin Urine Urobilinogen Ur Leukocyte Esterase Urine RBC Urine WBC Hyaline Casts Urine Mucus Micro UA Comment Ur Microscopic Review Urine Culture Comments 03/19/18 03/19/18 03/19/18 20:05 20:05 21:40 WBC 7.9 RBC 4.08 L Hgb 11.2 L Hct 33.9 L MCV 83.2 MCH 27.6 MCHC 33.1 RDW 15.4 Plt Count 230 MPV 7.6 Neut % (Auto) 59.3 Lymph % (Auto) 25.6 Richardson % (Auto) 10.0 H Eos % (Auto) 4.5 H Baso % (Auto) 0.6 Neut # (Auto) 4.7 Lymph # (Auto) 2.0 Richardson # (Auto) 0.8 Eos # (Auto) 0.4 Baso # (Auto) 0.0 WBC Differential . Differential Comment Auto diff final PT INR APTT Sodium 139 Potassium 3.8 Chloride 105 Carbon Dioxide 27.1 Anion Gap 7 BUN 18 Creatinine 1.21 Estimated GFR 59 L Random Glucose 82 Calcium 8.2 L Magnesium Total Creatine Kinase Troponin I Less than 0.02 L B-Natriuretic Peptide Urine Color Yellow Urine Clarity Clear Urine pH 6.0 Ur Specific [place] 1.017 Urine Protein Negative Urine Glucose (UA) Negative Urine Ketones Negative Urine Occult Blood Negative Urine Nitrate Negative Urine Bilirubin Negative Urine Urobilinogen Less than 2 Ur Leukocyte Esterase Negative Urine RBC Less than 1 Urine WBC 2 Hyaline Casts 3 Urine Mucus Few H Micro UA Comment Culture not ind Ur Microscopic Review Not Reportable Urine Culture Comments Culture not ind 03/20/18 03/20/18 03/20/18 02:10 03:09 08:40 WBC 6.9 RBC 4.31 L Hgb 11.8 L Hct 36.5 L MCV 84.7 MCH 27.4 MCHC 32.4 RDW 15.2 Plt Count 209 MPV 7.3 Neut % (Auto) 60.2 Lymph % (Auto) 22.8 Richardson % (Auto) 11.1 H Eos % (Auto) 5.3 H Baso % (Auto) 0.6 Neut # (Auto) 4.2 Lymph # (Auto) 1.6 Richardson # (Auto) 0.8 Eos # (Auto) 0.4 Baso # (Auto) 0.0 WBC Differential . Differential Comment Auto diff final PT INR APTT Sodium 141 Potassium 3.9 Chloride 108 H Carbon Dioxide 26.8 Anion Gap 6 BUN 17 Creatinine 1.16 Estimated GFR 62 L Random Glucose 86 Calcium 8.8 Magnesium Total Creatine Kinase 41 56 Troponin I Less than 0.02 L Less than 0.02 L B-Natriuretic Peptide Urine Color Urine Clarity Urine pH Ur Specific [place] Urine Protein Urine Glucose (UA) Urine Ketones Urine Occult Blood Urine Nitrate Urine Bilirubin Urine Urobilinogen Ur Leukocyte Esterase Urine RBC Urine WBC Hyaline Casts Urine Mucus Micro UA Comment Ur Microscopic Review Urine Culture Comments - Imaging Impressions Chest X-Ray 03/19/18 20:05 CONCLUSION: 1. Left base infiltrate of most concern for pneumonia. 2. Right lung reasonably clear. No findings typical of CHF. Head CT 03/19/18 20:05 CONCLUSION: 1. Stable encephalomalacic changes on the right side compared with 2015 with underlying white matter disease. No acute intracranial hemorrhage, mass or shift. 2. Mucosal thickening right maxillary sinus. . Assessment and Plan - Assessment (1) CAD (coronary artery disease) Code(s): I25.10 - Atherosclerotic heart disease of [place] coronary artery without angina pectoris Status: Acute (2) History of coronary angioplasty Code(s): Z98.61 - Coronary angioplasty status Status: Acute (3) Hypertension Code(s): I10 - Essential (primary) hypertension Status: Acute (4) Hyperlipidemia Code(s): E78.5 - Hyperlipidemia, unspecified Status: Acute (5) History of CVA (cerebrovascular accident) Code(s): Z86.73 - Personal history of transient ischemic attack (TIA), and cerebral infarction without residual deficits Status: Acute (6) Pneumonia Code(s): J18.9 - Pneumonia, unspecified organism Status: Acute - Plan 72-year-old male past medical history significant for BPH, hypertension, hyperlipidemia, history of CVA and coronary artery disease status post [place] presents to the emergency department for the evaluation of chest pain, dizziness , lightheadedness, shortness of breath and lower back pain. Community-acquired pneumonia: acute -Chest x-ray reviewed, significant for left base infiltrate -Afebrile, no leukocytosis, however +productive cough -Given IV Azithromycin/Rocephin -Give IVF hydration -Much improved, stable on room air, will discharge on Levaquin Chest pain: reported on admission, however patient denies ever having chest pain to me today -ACS ruled out with negative serial cardiac enzymes x3 -EKG negative for ischemia, personally reviewed -EMR reviewed, [facility] 12/12/17 unremarkable -no complaints of chest pain throughout admission Hypertension/hyperlipidemia/BPH/CVA: chronic, stable -Continue home medications DVT Prophylaxis: Heparin sq Discharge Planning: Discharge patient to [facility] with [facility] Condition on discharge: Stable Heart Healthy Diet as tolerated Ad Melly activity Rx written: Levaquin 750mg daily x7days Follow-up with primary care physician (6) Pneumonia Qualifiers: Pneumonia type: due to unspecified organism Laterality: left Lung location: lower lobe of lung Qualified Code(s): J18.1 - Lobar pneumonia, unspecified organism
[2018-03-20] MEDS: Sucralfate 1 GM Tablet PO SCH ×2 (10:10→14:30)
[2018-03-20] MEDS: QUEtiapine 100 MG Tablet PO SCH ×2 (10:11→13:55)
[2018-03-20 13:28] VITALS: BP 164/82; PULSE 67; RESP 16; TEMP 98.5; O2SAT 85
--- NOTE | 2018-03-20 20:52 | ECG ---
Date Performed: 03/19/2018 Time Performed: 19:42:27 PTAGE: 72 years EKG: Sinus rhythm Left axis deviation POSSIBLE INFERIOR WALL MYOCARDIAL INFARCTION OF UNDETERMINED AGE SLIGHT RIGHT VE NTRICULAR CONDUCTION DISTURBANCE Compared to previous tracing, there is slight improvement in the T w ave changes, otherwise no significant change ABNORMAL ECG PREVIOUS TRACING : 12/24/2017 14.54 DOCTOR: Eric Garcia Interpretating Date/Time 03/20/2018 20:51:53
--- NOTE | 2018-03-20 20:54 | ECG ---
Date Performed: 03/20/2018 Time Performed: 02:14:27 PTAGE: 72 years EKG: Sinus rhythm WITH FIRST DEGREE AV BLOCK Left axis deviation Slight right ventricular conduction disturbance Possi ble inferior wall Myocardial infarction of undetermined age Since the previous tracing, no significan t change noted ABNORMAL ECG PREVIOUS TRACING : 03/19/2018 19.42 DOCTOR: Eric Garcia Interpretating Date/Time 03/20/2018 20:53:17
[2018-03-20] MEDS ORDERED: Melatonin 5 MG Tablet PO SCH (21:00)
[2018-03-20] MEDS ORDERED: Finasteride 5 MG Tablet PO SCH (21:00)
== END 2018-03-20 16:02 ==
LOC: NEPC 19:13 → NEDA 19:13 → NEPFCDU 03-20 01:00
PROVIDERS: ADMIT Hospitalist; ATTEND Hospitalist

== ENCOUNTER 2018-03-27 17:18 | Inpatient (IN) ==
[2018-03-27] MEDS ORDERED: Sodium Chlor 0.9% Inj 500 ML IV.SIG ONE ×3 (17:51→22:38)
--- NOTE | 2018-03-27 17:59 | ED ---
HPI General Chief complaint: Weakness Stated complaint: Weakness,Evac Time Seen by Provider: 03/27/18 17:35 Source: patient, EMS, RN notes reviewed and old records reviewed Mode of arrival: EMS Limitations: no limitations History of Present Illness HPI narrative: 72-year-old male presents to the emergency department for evaluation of dizziness and frequent falls. Patient states he has fallen twice a day and has fallen several times in the past few days. He has ecchymosis to his right abdomen which she states was from a fall 3 days ago when he hit his walker with his abdomen. He also states he hit his head the first fall today. Denies LOC or syncope. He denies any chest pain to me. He reports shortness of breath and cough. He states he was recently diagnosed with pneumonia. He denies any abdominal pain. No nausea or vomiting. Patient reports dizziness has been ongoing for several months. He lives at an [facility]. Moderate severity. He does report history of stroke and chronic left-sided weakness from previous stroke. He denies being on anticoagulants. Patient was just recently here on March 19 for chest pain, dizziness, frequent falls. Onset (ago): month(s) Radiation: non-radiation Severity: moderate Pain Consistency: constant Relieving factors: none Exacerbating factors: none Associated symptoms: Reports denies other symptoms Related Data Home Medications Medication Instructions Recorded Confirmed alprazolam 0.5 mg PO TID 12/11/17 03/27/18 amlodipine [Norvasc] 5 mg PO DAILY 12/11/17 03/27/18 finasteride 5 mg PO HS 12/11/17 03/27/18 meclizine 25 mg PO TID PRN 12/11/17 03/27/18 melatonin 3 mg PO 12/11/17 03/27/18 quetiapine 100 mg PO TID 12/11/17 03/27/18 sucralfate 1 g PO QID 12/11/17 03/27/18 tamsulosin 0.8 mg PO DAILY 12/11/17 03/27/18 tramadol 50 mg PO TID 12/11/17 03/27/18 ziprasidone HCl 40 mg PO TID 12/11/17 03/27/18 calcium carbonate [Tums] 2 tab PO Q4-6H PRN 12/24/17 03/27/18 nitroglycerin [Nitrostat] 0.4 mg SUBLINGUAL Q5-15M PRN 12/24/17 03/27/18 venlafaxine 150 mg PO BID 12/24/17 03/27/18 aspirin 325 mg PO DAILY 03/19/18 03/27/18 atorvastatin 40 mg PO DAILY 03/19/18 03/27/18 esomeprazole magnesium [Nexium] 40 mg PO DAILY 03/19/18 03/27/18 ranitidine HCl 150 mg PO BID 03/19/18 03/27/18 Allergies Allergy/AdvReac Type Severity Reaction Status Date / Time No Known Allergies Allergy Verified 03/19/18 20:03 Review of Systems ROS: all other systems reviewed are negative PMFSH Social History Social History Substance History: No History of Abuse Second Hand Smoke Exposure: No Smoking Status: Former smoker Tobacco Type: Cigarettes How Often Do You Have a Drink Containing Alcohol: Never Recent Travel in [facility] within the Last 8 Weeks: No Recent Out of Country Travel within the Last 8 Weeks: No Immunization History Tetanus Immunization: <5 Years Exam Narrative Exam Narrative: GENERAL: Well-nourished, well-developed elderly male patient, afebrile. SKIN: Focused skin assessment warm/dry. HEAD: Normocephalic. Atraumatic ENT: Mucosa pink and moist. No erythema or exudates. No uvular edema. No uvular , palatal, or tonsillar deviation. Airway patent. Nasal turbinates appear normal without nasal blood, purulent drainage or septal hematoma. Bilateral tympanic membranes clear without erythema or perforation. EYES: No scleral icterus. No injection or drainage. NECK: Supple, trachea midline. No JVD or lymphadenopathy. CARDIOVASCULAR: Regular rate and rhythm without murmurs, gallops, or rubs. RESPIRATORY: Breath sounds equal bilaterally. No accessory muscle use. Dry cough noted GASTROINTESTINAL: Abdomen soft, non-tender, nondistended. Ecchymosis noted to right lower quadrant MUSCULOSKELETAL: No cyanosis, or edema. Chronic weakness of the left upper and lower extremity BACK: Nontender without obvious deformity. No CVA tenderness. Course Initial Documented Vital Signs Pulse Rate 83 03/27/18 17:23 Respiratory Rate 16 03/27/18 17:23 Blood Pressure 134/86 03/27/18 17:23 Pulse Oximetry 97 03/27/18 17:23 Last Documented Vital Signs Temperature 98.7 F 03/28/18 20:00 Pulse Rate 91 H 03/28/18 20:00 Respiratory Rate 17 03/28/18 20:00 Blood Pressure 151/82 H 03/28/18 20:00 Pulse Oximetry 95 03/28/18 20:00 Medical Decision Making MDM Narrative Medical decision making narrative: 72-year-old male presents to the emergency department for evaluation of dizziness and frequent falls, just recently discharged on March 20 for the same. IV access obtained. EKG, CBC, CMP, CK, troponin, magnesium, PTT, PT/INR, UA are ordered and pending. Orthostatic VS are ordered and pending. CT of the brain, CT of the cervical spine, CT abdomen/ pelvis, chest x-ray ordered and pending. Patient is given normal saline 500 mL bolus. EKG shows SR with 1st degree AV block, incomplete RBBB. CBC shows no acute abnormality. CMP shows elevated BUN 20. CK is 45. Troponin is less than 0.02. Magnesium is 1.8. PTT is 26.7. PT/INR is 10.0/1.0. UA [-]. Orthostatic VS shows slight orthostatic hypotension with a supine bp of 141/84, standing of 120/85. CT of the brain shows Stable right frontoparietal high convexity encephalomalacia consistent with remote MCA territory infarct; Stable senescent changes with mild to moderate periventricular white matter ischemic denomination; No acute intracranial abnormality or significant interval change. CT of the cervical spine shows No acute fracture; Stable subtle anterolisthesis of C4 on C5 and posterolisthesis of C5 on C6, presumably secondary to degenerative facet arthrosis; Advanced multilevel degenerative spondylosis of the cervical spine, as above. CT abdomen/pelvis shows No acute CT abnormality in the abdomen or pelvis; Left lung base atelectasis/scarring; Small to moderate amount of stool throughout the colon consistent with some degree of constipation. Chest x-ray shows Improving aeration in the left lung base with some minimal residual linear density possibly representing resolving infiltrate or atelectasis., Heart size is borderline prominent but well compensated. Patient is given 2nd 500 ml IV NS bolus. Repeat orthostatic VS after 1 L IVF shows patient still has orthostatic hypotension. Supine BP is 154/102, standing is 127/90. Patient is unable to walk, unsteady on feet, complaining of dizziness. Patient will be admitted. Medical Screen Exam Complete: Yes Emergency Medical Condition: Yes Lab Data Result diagrams: 03/27/18 18:24 03/27/18 18:24 Lab Results 03/27/18 03/27/18 03/27/18 Range/Units 18:24 18:24 18:24 WBC 7.5 (4.0-11.0) th/mm3 RBC 4.07 L (4.50-5.90) mil/mm3 Hgb 11.2 L (13.0-17.0) gm/dL Hct 33.8 L (39.0-51.0) % MCV 83.2 (80.0-100.0) fL MCH 27.6 (27.0-34.0) pg MCHC 33.2 (32.0-36.0) % RDW 15.9 (11.6-17.2) % Plt Count 215 (150-450) th/mm3 MPV 7.7 (7.0-11.0) fL Neut % (Auto) 70.1 H (16.0-70.0) % Lymph % (Auto) 15.9 (9.0-44.0) % [place] % (Auto) 9.4 H (0.0-8.0) % Eos % (Auto) 4.1 H (0.0-4.0) % Baso % (Auto) 0.5 (0.0-2.0) % Neut # (Auto) 5.3 (1.8-7.7) th/mm3 Lymph # (Auto) 1.2 (1.0-4.8) th/mm3 [place] # (Auto) 0.7 (0.0-0.9) th/mm3 Eos # (Auto) 0.3 (0.0-0.4) th/mm3 Baso # (Auto) 0.0 (0.0-0.2) th/mm3 WBC Differential . Differential Comment Auto diff final PT 10.0 (9.8-11.6) sec INR 1.0 Ratio APTT 26.7 (24.3-30.1) sec Sodium 140 (136-145) meq/L Potassium 3.6 (3.5-5.1) meq/L Chloride 107 (98-107) meq/L Carbon Dioxide 24.3 (21.0-32.0) meq/L Anion Gap 9 (5-15) meq/L BUN 20 H (7-18) mg/dL Creatinine 1.30 (0.60-1.30) mg/dL Estimated GFR 54 L (>89) mL/min Random Glucose 87 (74-106) mg/dL Calcium 8.7 (8.5-10.1) mg/dL Magnesium 1.8 (1.5-2.5) mg/dL Total Bilirubin 0.3 (0.2-1.0) mg/dL AST 6 L (15-37) U/L ALT 14 (12-78) U/L Alkaline Phosphatase 93 (45-117) U/L Total Creatine Kinase 45 (39-308) U/L Troponin I Less than 0.02 L (0.02-0.05) ng/mL Total Protein 7.3 (6.4-8.2) g/dL Albumin 3.4 (3.4-5.0) g/dL Urine Color (Yellw/Straw) Urine Clarity (Clear) Urine pH (5.0-8.5) Ur Specific [place] (1.002-1.035) Urine Protein (Neg-Trace) mg/dL Urine Glucose (UA) (Negative) mg/dL Urine Ketones (Negative) mg/dL Urine Occult Blood (Negative) Urine Nitrate (Negative) Urine Bilirubin (Negative) Urine Urobilinogen (Less than 2) mg/dL Ur Leukocyte Esterase (Negative) Urine WBC (0-5) /hpf Urine Mucus (Occasional) /lpf Micro UA Comment Ur Microscopic Review Urine Culture Comments 03/27/18 Range/Units 20:45 WBC (4.0-11.0) th/mm3 RBC (4.50-5.90) mil/mm3 Hgb (13.0-17.0) gm/dL Hct (39.0-51.0) % MCV (80.0-100.0) fL MCH (27.0-34.0) pg MCHC (32.0-36.0) % RDW (11.6-17.2) % Plt Count (150-450) th/mm3 MPV (7.0-11.0) fL Neut % (Auto) (16.0-70.0) % Lymph % (Auto) (9.0-44.0) % [place] % (Auto) (0.0-8.0) % Eos % (Auto) (0.0-4.0) % Baso % (Auto) (0.0-2.0) % Neut # (Auto) (1.8-7.7) th/mm3 Lymph # (Auto) (1.0-4.8) th/mm3 [place] # (Auto) (0.0-0.9) th/mm3 Eos # (Auto) (0.0-0.4) th/mm3 Baso # (Auto) (0.0-0.2) th/mm3 WBC Differential Differential Comment PT (9.8-11.6) sec INR Ratio APTT (24.3-30.1) sec Sodium (136-145) meq/L Potassium (3.5-5.1) meq/L Chloride (98-107) meq/L Carbon Dioxide (21.0-32.0) meq/L Anion Gap (5-15) meq/L BUN (7-18) mg/dL Creatinine (0.60-1.30) mg/dL Estimated GFR (>89) mL/min Random Glucose (74-106) mg/dL Calcium (8.5-10.1) mg/dL Magnesium (1.5-2.5) mg/dL Total Bilirubin (0.2-1.0) mg/dL AST (15-37) U/L ALT (12-78) U/L Alkaline Phosphatase (45-117) U/L Total Creatine Kinase (39-308) U/L Troponin I (0.02-0.05) ng/mL Total Protein (6.4-8.2) g/dL Albumin (3.4-5.0) g/dL Urine Color Straw (Yellw/Straw) Urine Clarity Clear (Clear) Urine pH 5.0 (5.0-8.5) Ur Specific [place] 1.027 (1.002-1.035) Urine Protein Negative (Neg-Trace) mg/dL Urine Glucose (UA) Negative (Negative) mg/dL Urine Ketones Negative (Negative) mg/dL Urine Occult Blood Negative (Negative) Urine Nitrate Negative (Negative) Urine Bilirubin Negative (Negative) Urine Urobilinogen Less than 2 (Less than 2) mg/dL Ur Leukocyte Esterase Negative (Negative) Urine WBC 2 (0-5) /hpf Urine Mucus Few H (Occasional) /lpf Micro UA Comment Culture not ind Ur Microscopic Review Not Reportable Urine Culture Comments Culture not ind Imaging Data Radiologist's impression: Abdomen/Pelvis CT 03/27/18 17:51 CONCLUSION: 1. No acute CT abnormality in the abdomen or pelvis. 2. Left lung base atelectasis/scarring. 3. Small to moderate amount of stool throughout the colon consistent with some degree of constipation. Cervical Spine CT 03/27/18 17:51 CONCLUSION: 1. No acute fracture. 2. Stable subtle anterolisthesis of C4 on C5 and posterolisthesis of C5 on C6, presumably secondary to degenerative facet arthrosis. 3. Advanced multilevel degenerative spondylosis of the cervical spine, as above. Chest X-Ray 03/27/18 17:51 CONCLUSION: 1. Improving aeration in the left lung base with some minimal residual linear density possibly representing resolving infiltrate or atelectasis. 2. Heart size is borderline prominent but well compensated. Head CT 03/27/18 17:51 CONCLUSION: 1. Stable right frontoparietal high convexity encephalomalacia consistent with remote MCA territory infarct. 2. Stable senescent changes with mild to moderate periventricular white matter ischemic denomination. 3. No acute intracranial abnormality or significant interval change. . Discharge Plan Discharge Disposition Patient Disposition: 30 Still Patient Discharge Details Diagnosis: Orthostatic hypotension, Dizziness Physicians Team ED Provider: Aristeo Rosado ED Midlevel Provider: Angy Bustamante Primary Care Provider: Justice Sotelo Attending Provider: Litzy Davis Status ED Status: Left Department Discharge Information Discharge Date/Time: 03/27/18 23:40
--- NOTE | 2018-03-27 18:33 | XR ---
EXAM DATE: 03/27/2018 6:13 PM EDT AGE/SEX: 72 years / Male INDICATIONS: Cough, shortness of breath, and weakness. CLINICAL DATA: This is the patient's initial encounter. Patient reports that signs and symptoms have been present for 1 week and indicates a pain score of 0/10. MEDICAL/SURGICAL HISTORY: Myocardial infarction. Hypertension. Stroke. Angioplasty. Appendect guadalupe. COMPARISON: [facility] – [place], CHEST 1V SINGLE AP, 03/19/2018. . FINDINGS: Lungs are symmetrically aerated. There is improving aeration in the left lung base with some persiste nt linear density possibly representing residual airspace disease or atelectasis. Right lung is clear . Heart size is borderline but well compensated. Osseous structures are intact CONCLUSION: 1. Improving aeration in the left lung base with some minimal residual linear density possibly repre senting resolving infiltrate or atelectasis. 2. Heart size is borderline prominent but well compensated. Electronically signed by: Jonathan Capellan MD 03/27/2018 6:31 PM EDT
[2018-03-27 18:55] LABS: Baso % (Auto) 0.5 % (0.0-2.0); Eos # (Auto) 0.3 th/mm3 (0.0-0.4); Eos % (Auto) 4.1 % (0.0-4.0); Hematocrit 33.8 % (39.0-51.0); Hemoglobin 11.2 gm/dL (13.0-17.0); Lymph # (Auto) 1.2 th/mm3 (1.0-4.8); Lymph % (Auto) 15.9 % (9.0-44.0); Mean Corpuscular HGB Conc 33.2 % (32.0-36.0); Mean Corpuscular Hemoglobin 27.6 pg (27.0-34.0); Mean Corpuscular Volume 83.2 fL (80.0-100.0); Mean Platelet Volume 7.7 fL (7.0-11.0); Mono # (Auto) 0.7 th/mm3 (0.0-0.9); Mono % (Auto) 9.4 % (0.0-8.0); Neut # (Auto) 5.3 th/mm3 (1.8-7.7); Neut % (Auto) 70.1 % (16.0-70.0); Platelet Count 215 th/mm3 (150-450); Red Blood Count 4.07 mil/mm3 (4.50-5.90); Red Cell Distribution Width 15.9 % (11.6-17.2); White Blood Count 7.5 th/mm3 (4.0-11.0)
[2018-03-27 19:19] LABS: Activated Partial Thrombo Time 26.7 sec (24.3-30.1)
[2018-03-27 19:30] LABS: Alanine Aminotransferase 14 U/L (12-78); Albumin 3.4 g/dL (3.4-5.0); Anion Gap 9 meq/L (5-15); Aspartate Aminotransferase 6 U/L (15-37); Blood Urea Nitrogen 20 mg/dL (7-18); Calcium 8.7 mg/dL (8.5-10.1); Carbon Dioxide 24.3 meq/L (21.0-32.0); Chloride 107 meq/L (98-107); Glomerular Filtration Rate 54 mL/min (>89); Glucose,Random 87 mg/dL (74-106); Magnesium 1.8 mg/dL (1.5-2.5); Potassium 3.6 meq/L (3.5-5.1); Sodium 140 meq/L (136-145)
[2018-03-27 19:35] LABS: Alkaline Phosphatase 93 U/L (45-117); Creatine Kinase 45 U/L (39-308); Total Protein 7.3 g/dL (6.4-8.2)
--- NOTE | 2018-03-27 20:10 | CT ---
EXAM DATE: 03/27/2018 8:05 PM EDT AGE/SEX: 72 years / Male INDICATIONS: Dizziness and weakness. Fall. CLINICAL DATA: This is the patient's initial encounter. Patient reports that signs and symptoms have been present for 1 day and indicates a pain score of 0/10. MEDICAL/SURGICAL HISTORY: Hypertension. Myocardial infarction. Stroke. Appendectomy. RADIATION DOSE: 61.21 CTDI (mGy) COMPARISON: [facility] – [place], CT HEAD W/O CONTRAST, 03/19/2018. . TECHNIQUE: CT of the head without contrast. Using automated exposure control and adjustment of the mA and/or kV according to patient size, radiation dose was kept as low as reasonably achievable to ob tain optimal diagnostic quality images. DICOM format image data is available electronically for revi ew and comparison. FINDINGS: Cerebrum: Redemonstration large region of encephalomalacia in the right frontoparietal high convexit ies. Moderate diffuse cerebral atrophy. The ventricles are normal for degree of atrophy. [id number] rate periventricular white matter hypodensities. No evidence of midline shift, mass lesion, hemorrhag e or acute infarction. No extraaxial fluid collections are seen. Posterior Fossa: The cerebellum and brainstem are intact. The 4th ventricle is midline. The cerebe llopontine angle is unremarkable. Extracranial: The visualized portion of the orbits is intact. Skull: The calvaria is intact. No evidence of skull fracture. CONCLUSION: 1. Stable right frontoparietal high convexity encephalomalacia consistent with remote MCA territory infarct. 2. Stable senescent changes with mild to moderate periventricular white matter ischemic denomination . 3. No acute intracranial abnormality or significant interval change. . Electronically signed by: Sudeep Mata MD 03/27/2018 8:08 PM EDT
--- NOTE | 2018-03-27 20:30 | CT ---
EXAM DATE: 03/27/2018 8:25 PM EDT AGE/SEX: 72 years / Male INDICATIONS: Dizziness and weakness. Fall. CLINICAL DATA: This is the patient's initial encounter. Patient reports that signs and symptoms have been present for 1 day and indicates a pain score of 0/10. MEDICAL/SURGICAL HISTORY: Hypertension. Myocardial infarction. Stroke. Appendectomy. RADIATION DOSE: 20.05 CTDI (mGy) COMPARISON: [facility] – [place], CT CERVICAL SPINE W/O CONTRAST, 03/01/2016. . TECHNIQUE: Contiguous axial images were obtained using helical multirow detector technique. The vol umetric data was post-processed with multiplanar reconstruction in oblique axial, sagittal, and coron al planes. Using automated exposure control and adjustment of the mA and/or kV according to patient s ize, radiation dose was kept as low as reasonably achievable to obtain optimal diagnostic quality brenda ges. DICOM format image data is available electronically for review and comparison. FINDINGS: OSSEOUS STRUCTURES: Vertebral body heights are maintained. Osseous structures are intact without evid ence for acute bony fracture. Dens is intact. ALIGNMENT: Stable less than 2 mm anterolisthesis of C4 on C5 and posterolisthesis of C5 on C6. There is a normal C1-2 relationship. Facets are normally aligned. SOFT TISSUES: There is no significant prevertebral soft tissue hematoma. No significant cervical merlin nopathy or gross mass. The thyroid appears unremarkable. Visualized lung apices are clear without pn eumothorax. ADDITIONAL FINDINGS: Advanced multilevel degenerative spondylosis of the cervical spine with severe d isc space narrowing and posterior disc osteophytes most prominently at C5-6 and C6-7. Multilevel face t arthropathy. Bony central canal is patent. Bony neural foramina are patent. CONCLUSION: 1. No acute fracture. 2. Stable subtle anterolisthesis of C4 on C5 and posterolisthesis of C5 on C6, presumably secondary to degenerative facet arthrosis. 3. Advanced multilevel degenerative spondylosis of the cervical spine, as above. Electronically signed by: Sudeep Mata MD 03/27/2018 8:29 PM EDT
--- NOTE | 2018-03-27 20:34 | CT ---
EXAM DATE: 03/27/2018 8:23 PM EDT AGE/SEX: 72 years / Male INDICATIONS: Dizziness and weakness. Fall. CLINICAL DATA: This is the patient's initial encounter. Patient reports that signs and symptoms have been present for 1 day and indicates a pain score of 0/10. MEDICAL/SURGICAL HISTORY: Hypertension. Myocardial infarction. Stroke. Appendectomy. ORAL CONTRAST: No oral contrast ingested. RADIATION DOSE: 9.48 CTDI (mGy) COMPARISON: No prior exams available for comparison. TECHNIQUE: Multiple contiguous axial images were obtained through the abdomen and pelvis following b olus infusion of 96 ml Omnipaque 350 (iohexol) nonionic water-soluble contrast as a single exam dos e. No oral contrast ingested. Using automated exposure control and adjustment of the mA and/or kV ac cording to patient size, radiation dose was kept as low as reasonably achievable to obtain optimal di agnostic quality images. DICOM format image data is available electronically for review and comparis on. FINDINGS: LOWER LUNGS: Patchy groundglass opacities at the left lung base with associated interstitial thicken ing and volume loss. LIVER: The liver has a homogeneous density without space-occupying lesion. There is no dilation of t he biliary tree. SPLEEN: Homogeneous density without enlargement. PANCREAS: Unremarkable without mass or calcification. KIDNEYS: Kidneys demonstrate symmetrical enhancement and are symmetrical in size without evidence fo r radiopaque renal calculi or hydronephrosis. ADRENAL GLANDS: Unremarkable. AORTA: Nonaneurysmal with moderate atherosclerotic calcifications in the distal aorta and prominent c alcified plaque in the iliac arteries bilaterally. BOWEL/MESENTERY: Small to moderate amount of stool throughout the colon. No dilated loops of bowel. No free fluid or drainable fluid collections. No pneumatosis or free air. ABDOMINAL WALL: Intact. RETROPERITONEUM: No evidence of adenopathy in the retrocrural, para-aortic, or deep pelvic regions. BLADDER: Contours are smooth. REPRODUCTIVE: No abnormal masses or calcifications seen. BONY STRUCTURES: Mild S-shaped scoliosis of the lumbar spine with associated degenerative change mos t prominently at L4-5. CONCLUSION: 1. No acute CT abnormality in the abdomen or pelvis. 2. Left lung base atelectasis/scarring. 3. Small to moderate amount of stool throughout the colon consistent with some degree of constipatio n. Electronically signed by: Sudeep Mata MD 03/27/2018 8:33 PM EDT
[2018-03-27 21:11] LABS: Bilirubin,Urine Negative (Negative); Clarity,Urine Clear (Clear); Color,Urine Straw (Yellw/Straw); Glucose,Urine (UA) Negative (Negative); Leukocyte Esterase,Urine Negative (Negative); Mucus,Urine Few /lpf (Occasional); Nitrite,Urine Negative (Negative); Specific Gravity,Urine 1.027 (1.002-1.035)
[2018-03-27] MEDS ORDERED: Bisacodyl 10 MG Supp RECTAL PRN (22:40)
[2018-03-28] MEDS: Sod Chloride 0.9% Inj 1,000 ML IV.CONT SCH ×2 (00:18→18:36)
--- NOTE | 2018-03-28 02:11 | P.HPIM ---
History of Present Illness Service: [facility] Primary Care Physician: Justice Sotelo MD Chief Complaint: dizziness History of Present Illness: 63 y/o male with a history of BPH, HTN, HLD, [place] and CVA presented to the ED with complaints of dizziness and falls. Patient states he has been getting dizzy and loosing his balance and falling off and on for the last 3 months. He says for the past 2 days he has been falling more frequent. He denies any associated chest pain, sob, fever, chills, or headaches. He denies any LOC or hitting her head. Patient does walk with a walker and lives at an [facility]. 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 - Medical History Medical History: Medical History (Last Reviewed 03/28/18 @ 03:23 by LANCE Francis) Hypertension (Acute) Stroke (Acute) Myocardial infarct (Acute) BPH (benign prostatic hyperplasia) Hyperlipidemia - Surgical History Surgical History: Surgical History (Last Reviewed 03/28/18 @ 03:23 by LANCE Francis) H/O angioplasty (Acute) History of appendectomy (Acute) - Family History Family History: Family History (Last Reviewed 03/28/18 @ 03:23 by LANCE Francis) Other No family history of cardiovascular disease - Social History I have reviewed the patient's Social History: Yes - Tobacco History Second Hand Smoke Exposure: No Smoking Status: Former smoker Tobacco Type: Cigarettes - Alcohol History How Often Do You Have a Drink Containing Alcohol: Never - Substance Use History Substance History: No History of Abuse - Travel History Recent Travel in the [place] Within the Last 8 Weeks: No Recent Travel Out of the Country Within the Last 8 Weeks: No - Immunization History Tetanus Immunization: <5 Years Medications and Allergies Active Medications: Active Medications Al Hydroxide/Mg Hydroxide (Milk Of [place] Liq) 30 ml PO Q12H PRN PRN Reason: Mild Constipation Aspirin (Aspirin) 325 mg PO DAILY DAVID Atorvastatin Calcium (Lipitor) 40 mg PO DAILY DAVID Bisacodyl (Dulcolax Supp) 10 mg RECTAL DAILY PRN PRN Reason: SEVERE CONSITIPATION Finasteride (Proscar) 5 mg PO HS DAVID Sodium Chloride (Ns Inj) 1,000 mls @ 50 mls/hr IV.CONT .Q20H [facility] Last Admin: 03/28/18 00:18 Dose: 50 mls/hr Lactulose (Lactulose Liq) 30 ml PO DAILY PRN PRN Reason: SEVERE CONSITIPATION Pantoprazole Sodium (Protonix) 40 mg PO DAILY [facility] Sennosides (Senokot) 17.2 mg PO Q12H PRN PRN Reason: Moderate Constipation Sodium Chloride (Ns Flush) 2 ml IV.FLUSH PRN PRN PRN Reason: FLUSH AFTER USING IV ACCESS Venlafaxine HCl (Effexor Xr) 150 mg PO BID [facility] Allergies Allergy/AdvReac Type Severity Reaction Status Date / Time No Known Allergies Allergy Verified 03/19/18 20:03 Home Medications Medication Instructions Recorded Confirmed Type alprazolam 0.5 mg PO TID 12/11/17 03/27/18 History amlodipine [Norvasc] 5 mg PO DAILY 12/11/17 03/27/18 History finasteride 5 mg PO HS 12/11/17 03/27/18 History meclizine 25 mg PO TID PRN 12/11/17 03/27/18 History melatonin 3 mg PO HS 12/11/17 03/27/18 History quetiapine 100 mg PO TID 12/11/17 03/27/18 History sucralfate 1 g PO QID 12/11/17 03/27/18 History tamsulosin 0.8 mg PO DAILY 12/11/17 03/27/18 History tramadol 50 mg PO TID 12/11/17 03/27/18 History ziprasidone HCl 40 mg PO TID 12/11/17 03/27/18 History calcium carbonate [Tums] 2 tab PO Q4-6H PRN 12/24/17 03/27/18 History nitroglycerin [Nitrostat] 0.4 mg SUBLINGUAL Q5-15M PRN 12/24/17 03/27/18 History venlafaxine 150 mg PO BID 12/24/17 03/27/18 History aspirin 325 mg PO DAILY 03/19/18 03/27/18 History atorvastatin 40 mg PO DAILY 03/19/18 03/27/18 History esomeprazole magnesium [Nexium] 40 mg PO DAILY 03/19/18 03/27/18 History ranitidine HCl 150 mg PO BID 03/19/18 03/27/18 History Exam Vital signs: Vital Signs 03/27/18 17:23 03/27/18 17:35 03/27/18 19:00 Temperature 98.0 F Pulse Rate 83 79 Respiratory Rate 16 16 Blood Pressure 134/86 143/80 H Pulse Oximetry 97 94 L 03/28/18 00:00 Temperature 97.2 F L Pulse Rate 72 Respiratory Rate 18 Blood Pressure 140/88 Pulse Oximetry 96 Intake & Output 03/27/18 03/27/18 03/28/18 06:59 18:59 06:59 Intake Total 1500 / 1500 Balance 1500 / 1500 Weight 83.915 kg 83.915 kg Intake: IV 1500 / 1500 NS Inj 500 ML @ Wide Open IV. 1500 / 1500 [facility] Rx#:[id number] Other: Date of Last Bowel Movement 03/27/18 Weight On Admission 83.915 kg Narrative: GENERAL: This is a well-nourished, well-developed patient, in no apparent distress. CARDIOVASCULAR: Regular rate and rhythm without murmurs, gallops, or rubs. RESPIRATORY: Clear to auscultation. Breath sounds equal bilaterally. No wheezes , rales, or rhonchi. GASTROINTESTINAL: Abdomen soft, non-tender, nondistended. Normal active bowel sounds MUSCULOSKELETAL: Extremities without clubbing, cyanosis, or edema. NEURO: Alert & Oriented x4 to person, place, time, situation. Moves all ext x4 Results - Labs CBC & Chem 7: 03/27/18 18:24 03/27/18 18:24 Labs: Short CBC 03/27/18 Range/Units 18:24 WBC 7.5 (4.0-11.0) th/mm3 Hgb 11.2 L (13.0-17.0) gm/dL Hct 33.8 L (39.0-51.0) % Plt Count 215 (150-450) th/mm3 BMP 03/27/18 18:24 Sodium 140 Potassium 3.6 Chloride 107 Carbon Dioxide 24.3 BUN 20 H Creatinine 1.30 Calcium 8.7 Cardiac Enzymes 03/27/18 Range/Units 18:24 Total Creatine Kinase 45 (39-308) U/L Troponin I Less than 0.02 L (0.02-0.05) ng/mL Liver Function 03/27/18 Range/Units 18:24 Total Bilirubin 0.3 (0.2-1.0) mg/dL AST 6 L (15-37) U/L ALT 14 (12-78) U/L Alkaline Phosphatase 93 (45-117) U/L Albumin 3.4 (3.4-5.0) g/dL Urine 03/27/18 Range/Units 20:45 Urine Color Straw (Yellw/Straw) Urine Clarity Clear (Clear) Urine pH 5.0 (5.0-8.5) Ur Specific [place] 1.027 (1.002-1.035) Urine Protein Negative (Neg-Trace) mg/dL Urine Glucose (UA) Negative (Negative) mg/dL - Imaging Impressions Abdomen/Pelvis CT 03/27/18 17:51 CONCLUSION: 1. No acute CT abnormality in the abdomen or pelvis. 2. Left lung base atelectasis/scarring. 3. Small to moderate amount of stool throughout the colon consistent with some degree of constipation. Cervical Spine CT 03/27/18 17:51 CONCLUSION: 1. No acute fracture. 2. Stable subtle anterolisthesis of C4 on C5 and posterolisthesis of C5 on C6, presumably secondary to degenerative facet arthrosis. 3. Advanced multilevel degenerative spondylosis of the cervical spine, as above. Chest X-Ray 03/27/18 17:51 CONCLUSION: 1. Improving aeration in the left lung base with some minimal residual linear density possibly representing resolving infiltrate or atelectasis. 2. Heart size is borderline prominent but well compensated. Head CT 03/27/18 17:51 CONCLUSION: 1. Stable right frontoparietal high convexity encephalomalacia consistent with remote MCA territory infarct. 2. Stable senescent changes with mild to moderate periventricular white matter ischemic denomination. 3. No acute intracranial abnormality or significant interval change. . Caprini VTE Risk Assessment Caprini VTE Risk Assessment: Moderate/High Risk (score >= 2) Caprini Risk Assessment Model: Point Value = 1 Point Value = 2 Point Value = 3 Point Value = 5 Age 41-60 Minor surgery BMI > 25 kg/m2 Swollen legs Varicose veins or History of unexplained or recurrent spontaneous Oral contraceptives or hormone replacement Sepsis (< 1 month) Serious lung disease, including pneumonia (< 1 month) Abnormal pulmonary function Acute myocardial infarction Congestive heart failure (< 1 month) History of inflammatory bowel disease Medical patient at bed rest Age 61-74 Arthroscopic surgery Major open surgery (> 45 min) Laparoscopic surgery (> 45 min) Malignancy Confined to bed (> 72 hours) Immobilizing plaster cast Central venous access Age >= 75 History of VTE Family history of VTE Factor V Leiden Prothrombin 19764H Lupus anticoagulant Anticardiolipin antibodies Elevated serum homocysteine Heparin-induced thrombocytopenia Other congenital or acquired thrombophilia Stroke (< 1 month) Elective arthroplasty Hip, pelvis, or leg fracture Acute spinal cord injury (< 1 month) Prophylaxis Regimen: Total Risk Factor Score Risk Level Prophylaxis Regimen 0-1 Low Early ambulation 2 Moderate Order ONE of the following: *Sequential Compression Device (SCD) *Heparin 5000 units SQ BID 3-4 Higher Order ONE of the following medications: *Heparin 5000 units SQ TID *Enoxaparin/Lovenox 40 mg SQ daily (WT < 150 kg, CrCl > 30 mL/min) *Enoxaparin/Lovenox 30 mg SQ daily (WT < 150 kg, CrCl > 10-29 mL/min) *Enoxaparin/Lovenox 30 mg SQ BID (WT < 150 kg, CrCl > 30 mL/min) AND/OR *Sequential Compression Device (SCD) 5 or more Highest Order ONE of the following medications: *Heparin 5000 units SQ TID (Preferred with Epidurals) *Enoxaparin/Lovenox 40 mg SQ daily (WT < 150 kg, CrCl > 30 mL/min) *Enoxaparin/Lovenox 30 mg SQ daily (WT < 150 kg, CrCl > 10-29 mL/min) *Enoxaparin/Lovenox 30 mg SQ BID (WT < 150 kg, CrCl > 30 mL/min) AND *Sequential Compression Device (SCD) Assessment and Plan - Assessment (1) Hypertension Code(s): I10 - Essential (primary) hypertension Status: Acute (2) Hyperlipidemia Code(s): E78.5 - Hyperlipidemia, unspecified Status: Acute (3) Vertigo Code(s): R42 - Dizziness and giddiness Status: Acute - Plan 63 y/o male with a history of BPH, HTN, anxiety, HLD, WI and CVA presented to the ED with complaints of dizziness and falls. Patient states he has been getting dizzy and loosing his balance and falling off and on for the last 3 months. Vertigo, orthostatic hypotension Head CT reviewed and shows a Stable right frontoparietal high convexity encephalomalacia consistent with remote MCA territory infarct -Orthostatic BP ordered, patient appears to be orthostatic when standing -Cesar hose ordered -PT ordered -Meclizine prn HTN, chronic -Hold amlodipine for now -Monitor vitals HLD, chronic -Resume home medication -cardiac diet DVT prophylaxis: SCDs/TEDs Discussed Condition With: Patient and RN H&P: Quality - VTE Deep Vein Thrombosis/Pulmonary Embolism Present on Admission: No
[2018-03-28] MEDS: Venlafaxine XR 75 MG Capsule PO SCH ×2 (08:00→20:53)
[2018-03-28] MEDS: Aspirin 325 MG Tablet PO SCH (08:00)
[2018-03-28] MEDS: Finasteride 5 MG Tablet PO SCH (20:53)
--- NOTE | 2018-03-29 00:31 | ECG ---
Date Performed: 03/27/2018 Time Performed: 18:46:13 PTAGE: 72 years EKG: Sinus rhythm WITH FIRST DEGREE AV BLOCK PATTERN CONSISTENT WITH PULMONARY DISEASE INCOMPLETE RIGHT BUNDLE BRANCH BLOCK INFERIOR MYOCARDIAL INFARCTION ABNORMAL ECG prior ECG 03/20/2018: Since the PREVIOUS TRACING , no significant change noted DOCTOR: Adrian Hernandez Interpretating Date/Time 03/29/2018 00:29:36
[2018-03-29] MEDS: Acetaminophen 325 MG Tablet PO PRN ×2 (04:24→10:29)
[2018-03-29] MEDS: Venlafaxine XR 75 MG Capsule PO SCH ×2 (08:30→20:06)
[2018-03-29] MEDS: Aspirin 325 MG Tablet PO SCH (08:30)
[2018-03-29] MEDS: Sod Chloride 0.9% Inj 1,000 ML IV.CONT SCH ×2 (08:32→15:10)
--- NOTE | 2018-03-29 11:21 | P.PN ---
Subjective Interval history: The patient is in bed still feels lightheaded. No headaches or motor deficit. Denies any chest pain or shortness of breath. He is feeling anxious on and off hold of benzodiazepine if possible. Restarted home medications as appropriate. He feels very weak, PT recommends rehab. Physical Exam Vital signs: Vital Signs 03/28/18 12:00 03/28/18 16:00 03/28/18 20:00 Temperature 97.3 F L 98.3 F 98.7 F Pulse Rate 83 80 91 H Respiratory Rate 16 16 17 Blood Pressure 154/86 H 155/79 H 151/82 H Pulse Oximetry 94 L 93 L 95 03/28/18 23:50 03/29/18 03:53 03/29/18 05:24 Temperature 98.1 F 98.0 F Pulse Rate 81 89 Respiratory Rate 18 18 16 Blood Pressure 167/86 H 180/88 H Pulse Oximetry 95 95 03/29/18 08:00 Temperature 98.3 F Pulse Rate 86 Respiratory Rate 12 Blood Pressure 140/87 Pulse Oximetry 95 Intake & Output 03/28/18 03/29/18 03/29/18 18:59 06:59 18:59 Intake Total 160 / 160 1000 / 1000 Balance 160 / 160 1000 / 1000 Intake: IV 160 / 160 1000 / 1000 NS Inj 1,000 ML @ 50 mls/hr IV. 160 / 160 1000 / 1000 CONT .Q20H [facility] Rx#:[id number] Other: Date of Last Bowel Movement 03/28/18 Narrative: GENERAL: This is a pleasant 72 yo male, chronically ill appearing, well- nourished, well-developed patient, appears in no apparent distress. CARDIOVASCULAR: Regular rate and rhythm without murmurs, gallops, or rubs. RESPIRATORY: Clear to auscultation. Breath sounds equal bilaterally. No wheezes , rales, or rhonchi. GASTROINTESTINAL: Abdomen soft, non-tender, nondistended. Normal active bowel sounds MUSCULOSKELETAL: Extremities without clubbing, cyanosis, or edema. NEURO: Alert and Oriented x4 to person, place, time, situation. Moves all ext x4, no focal deficits. CN grossly normal. Results - Labs CBC & Chem 7: 03/27/18 18:24 03/27/18 18:24 Assessment and Plan - Assessment (1) Hypertension Code(s): I10 - Essential (primary) hypertension Status: Acute (2) Hyperlipidemia Code(s): E78.5 - Hyperlipidemia, unspecified Status: Acute (3) Vertigo Code(s): R42 - Dizziness and giddiness Status: Acute - Plan 63 y/o male with a history of BPH, HTN, anxiety, HLD, [place] and CVA presented to the ED with complaints of dizziness and falls. Patient states he has been getting dizzy and loosing his balance and falling off and on for the last 3 months. Vertigo, orthostatic hypotension Head CT reviewed and shows a Stable right frontoparietal high convexity encephalomalacia consistent with remote MCA territory infarct -Orthostatic BP -Cesar hose ordered -PT ordered, recommends SNF -Meclizine prn HTN, labile -Hold amlodipine for now. However blood pressure is labile. Patient is with symptoms -Monitor vitals and adjust meds as need HLD, chronic -Resume home medication -cardiac diet Physical deconditioning. Abnormal gate. PT consulted and is following Check B12 and vit d Consult CM for dC plan as need DVT prophylaxis: SCDs/TEDs Discussed Condition With: Patient, nurse, case management. Discharge plan Patient needs rehab. CM is ff for DC plan Admit inpatient
[2018-03-29] MEDS: Finasteride 5 MG Tablet PO SCH (20:05)
[2018-03-30] MEDS: Venlafaxine XR 75 MG Capsule PO SCH ×2 (08:23→21:16)
[2018-03-30] MEDS: Aspirin 325 MG Tablet PO SCH (08:23)
--- NOTE | 2018-03-30 10:21 | P.PN ---
Subjective Interval history: Feels tired however is able to ambulate with physical therapy. No lightheadedness today. Eating fairly well. No nausea vomiting or diarrhea constipation. No chest pain or palpitations. Physical Exam Vital signs: Vital Signs 03/29/18 12:00 03/29/18 16:00 03/29/18 19:48 Temperature 98.6 F 97.6 F 98.1 F Pulse Rate 84 72 73 Respiratory Rate 12 12 17 Blood Pressure 138/76 156/78 H 135/83 Pulse Oximetry 94 L 93 L 95 03/29/18 21:15 03/30/18 00:00 03/30/18 00:30 Temperature 97.4 F L 97.7 F Pulse Rate 70 66 Respiratory Rate 20 20 17 Blood Pressure 161/77 H 142/64 H Pulse Oximetry 97 97 03/30/18 04:00 03/30/18 08:00 Temperature 97.1 F L 98.0 F Pulse Rate 77 91 H Respiratory Rate 20 17 Blood Pressure 132/87 154/84 H Pulse Oximetry 95 95 Intake & Output 03/29/18 03/30/18 03/30/18 18:59 06:59 18:59 Intake Total 1200 / 1200 60 / 60 300 / 300 Balance 1200 / 1200 60 / 60 300 / 300 Weight 81.193 kg Intake: IV 1200 / 1200 300 / 300 NS Inj 1,000 ML @ 50 mls/hr IV. 1200 / 1200 300 / 300 CONT .Q20H [facility] Rx#:[id number] Oral 60 / 60 Other: # Voids 6 Date of Last Bowel Movement 03/28/18 Narrative: GENERAL: This is a pleasant 72 yo male, chronically ill appearing, well- nourished, well-developed patient, appears in no apparent distress. CARDIOVASCULAR: Regular rate and rhythm without murmurs, gallops, or rubs. RESPIRATORY: Clear to auscultation. Breath sounds equal bilaterally. No wheezes , rales, or rhonchi. GASTROINTESTINAL: Abdomen soft, non-tender, nondistended. Normal active bowel sounds MUSCULOSKELETAL: Extremities without clubbing, cyanosis, or edema. NEURO: Alert and Oriented x4 to person, place, time, situation. Moves all ext x4, no focal deficits. CN grossly normal. Results - Labs CBC & Chem 7: 03/27/18 18:24 03/27/18 18:24 Laboratory Results - last 24 hr 03/29/18 17:11 Vitamin B12 322 Vitamin D 25-Hydroxy 13.7 L Assessment and Plan - Assessment (1) Hypertension Code(s): I10 - Essential (primary) hypertension Status: Acute (2) Hyperlipidemia Code(s): E78.5 - Hyperlipidemia, unspecified Status: Acute (3) Vertigo Code(s): R42 - Dizziness and giddiness Status: Acute - Plan 63 y/o male with a history of BPH, HTN, anxiety, HLD, [place] and CVA presented to the ED with complaints of dizziness and falls. Patient states he has been getting dizzy and loosing his balance and falling off and on for the last 3 months. Vertigo, orthostatic hypotension Head CT reviewed and shows a Stable right frontoparietal high convexity encephalomalacia consistent with remote MCA territory infarct -Orthostatic BP -Cesar hose ordered -PT ordered, recommends SNF -Meclizine prn HTN, labile -Hold amlodipine for now. However blood pressure is labile. Patient is with symptoms -Monitor vitals and adjust meds as need HLD, chronic -Resume home medication -cardiac diet Physical deconditioning. Abnormal gate. PT consulted and is following Check B12 and vit d Consult CM for DC plan as need DVT prophylaxis: SCDs/TEDs Discussed Condition With: Patient, nurse, case management. Discharge plan Patient needs rehab. CM is ff for DC plan
[2018-03-30] MEDS: Sod Chloride 0.9% Inj 1,000 ML IV.CONT SCH (13:08)
[2018-03-30] MEDS: Finasteride 5 MG Tablet PO SCH (21:16)
[2018-03-31] MEDS: Acetaminophen 325 MG Tablet PO PRN ×2 (08:50→21:49)
[2018-03-31] MEDS: Venlafaxine XR 75 MG Capsule PO SCH ×2 (08:51→21:45)
[2018-03-31] MEDS: Aspirin 325 MG Tablet PO SCH (08:51)
--- NOTE | 2018-03-31 08:59 | P.PN ---
Subjective Interval history: Patient is in bed he was trying to get in for he feels very dizzy. Physical therapy to work with the patient. He denies any chest pain or shortness of breath. No nausea or vomiting. Physical Exam Vital signs: Vital Signs 03/30/18 12:00 03/30/18 16:00 03/30/18 18:49 Temperature 97.7 F 98.1 F Pulse Rate 77 86 Respiratory Rate 18 18 Blood Pressure 129/77 163/84 H 155/80 H Pulse Oximetry 95 93 L 03/30/18 20:00 03/31/18 00:00 03/31/18 04:00 Temperature 97.8 F 97.7 F 98.1 F Pulse Rate 88 70 86 Respiratory Rate 18 18 18 Blood Pressure 135/80 160/77 H 170/90 H Pulse Oximetry 93 L 93 L 93 L 03/31/18 08:00 Temperature 98.1 F Pulse Rate 90 Respiratory Rate 18 Blood Pressure 170/90 H Pulse Oximetry 97 Intake & Output 03/30/18 03/31/18 03/31/18 18:59 06:59 18:59 Intake Total 300 / 300 Output Total 1200 / 1200 550 / 550 Balance -900 / -900 -550 / -550 Weight 82.2 kg Intake: IV 300 / 300 NS Inj 1,000 ML @ 50 mls/hr IV. 300 / 300 CONT .Q20H [facility] Rx#:[id number] Output: Urine 1200 / 1200 550 / 550 Other: # Voids 2 4 2 Date of Last Bowel Movement 03/30/18 03/30/18 03/31/18 # Bowel Movements 1 1 1 Narrative: GENERAL: This is a pleasant 72 yo male, chronically ill appearing, well- nourished, well-developed patient, appears in no apparent distress. CARDIOVASCULAR: Regular rate and rhythm without murmurs, gallops, or rubs. RESPIRATORY: Clear to auscultation. Breath sounds equal bilaterally. No wheezes , rales, or rhonchi. GASTROINTESTINAL: Abdomen soft, non-tender, nondistended. Normal active bowel sounds MUSCULOSKELETAL: Extremities without clubbing, cyanosis, or edema. NEURO: Alert and Oriented x4 to person, place, time, situation. Moves all ext x4, no focal deficits. CN grossly normal. Results - Labs CBC & Chem 7: 03/27/18 18:24 03/27/18 18:24 Assessment and Plan - Assessment (1) Hypertension Code(s): I10 - Essential (primary) hypertension Status: Acute (2) Hyperlipidemia Code(s): E78.5 - Hyperlipidemia, unspecified Status: Acute (3) Vertigo Code(s): R42 - Dizziness and giddiness Status: Acute - Plan 63 y/o male with a history of BPH, HTN, anxiety, HLD, [place] and CVA presented to the ED with complaints of dizziness and falls. Patient states he has been getting dizzy and loosing his balance and falling off and on for the last 3 months. Vertigo, orthostatic hypotension Head CT reviewed and shows a Stable right frontoparietal high convexity encephalomalacia consistent with remote MCA territory infarct -Orthostatic BP -Cesar hose ordered -PT ordered, recommends SNF -Meclizine prn HTN, labile -Hold amlodipine for now. However blood pressure is labile. Patient is with symptoms -Monitor vitals and adjust meds as need HLD, chronic -Resume home medication -cardiac diet Physical deconditioning. Abnormal gate. PT consulted and is following Check B12 and vit d Consult CM for DC plan as need DVT prophylaxis: SCDs/TEDs Discussed Condition With: Patient, nurse, case management. Discharge plan Patient needs rehab. CM is ff for DC plan.
[2018-03-31] MEDS: Sod Chloride 0.9% Inj 1,000 ML IV.CONT SCH (17:48)
[2018-03-31] MEDS: Finasteride 5 MG Tablet PO SCH (21:46)
[2018-04-01] MEDS ORDERED: amLODIPine 5 MG Tablet PO ONE ×2 (04:42→04:49)
[2018-04-01] MEDS: Sod Chloride 0.9% Inj 1,000 ML IV.CONT SCH (04:44)
[2018-04-01] MEDS: Acetaminophen 325 MG Tablet PO PRN ×4 (04:58→20:57)
--- NOTE | 2018-04-01 08:31 | P.PNIM ---
Subjective Interval history: Follow-up vertigo, dizziness, hypertension. Patient seen and examined sitting at the side of the bed, denies any dizziness, denies any headache or any vertigo. Patient stated he was up early today to get himself up walking in the room with her ISABEL hose on without any difficulty. Patient denies any pain, chest pain, shortness of breath. Patient denies any abdominal pain, nausea, vomiting, diarrhea or constipation. Patient denies any headache or dizziness. Patient stated he wanted to walk around in the hallway, stated yesterday he walked with physical therapy without a problem. Discussed to let the nurse know if he is walking. Physical Exam Vital signs: Vital Signs 03/31/18 12:00 03/31/18 16:00 03/31/18 20:00 Temperature 98.5 F 97.4 F L 97.6 F Pulse Rate 79 85 74 Respiratory Rate 18 18 18 Blood Pressure 137/90 157/85 H 177/88 H Pulse Oximetry 93 L 95 96 03/31/18 21:49 04/01/18 00:00 04/01/18 04:00 Temperature 98.2 F 98.7 F Pulse Rate 80 94 H Respiratory Rate 18 17 17 Blood Pressure 152/99 H 176/96 H Pulse Oximetry 95 95 Intake & Output 03/31/18 04/01/18 04/01/18 18:59 06:59 18:59 Intake Total 1000 / 1000 Balance 1000 / 1000 Weight 82 kg Intake: IV 1000 / 1000 NS Inj 1,000 ML @ 50 mls/hr IV. 1000 / 1000 CONT .Q20H [facility] Rx#:[id number] Other: # Voids 5 7 Date of Last Bowel Movement 03/31/18 03/31/18 # Bowel Movements 1 Narrative: GENERAL: Well-developed, well-nourished, elderly male, in no apparent distress SKIN: Warm and dry. HEAD: Atraumatic. Normocephalic. EYES: Pupils equal and round. No scleral icterus. No injection or drainage. ENT: No nasal bleeding or discharge. Mucous membranes pink and moist. NECK: Trachea midline. No JVD. CARDIOVASCULAR: Regular rate and rhythm. RESPIRATORY: No accessory muscle use. Clear to auscultation. Breath sounds equal bilaterally. GASTROINTESTINAL: Abdomen soft, non-tender, nondistended. Hepatic and splenic margins not palpable. MUSCULOSKELETAL: Extremities without clubbing, cyanosis, or edema. No obvious deformities. Bilateral ISABEL hose in place in bilateral lower leg NEUROLOGICAL: Awake and alert and oriented x4. No obvious cranial nerve deficits. Motor grossly within normal limits. Five out of 5 muscle strength in the arms and legs. Normal speech. PSYCHIATRIC: Appropriate mood and affect; insight and judgment normal. Results - Labs CBC & Chem 7: 03/27/18 18:24 03/27/18 18:24 Assessment and Plan - Assessment (1) Hypertension Code(s): I10 - Essential (primary) hypertension Status: Acute (2) Hyperlipidemia Code(s): E78.5 - Hyperlipidemia, unspecified Status: Acute (3) Vertigo Code(s): R42 - Dizziness and giddiness Status: Acute - Plan 63 y/o male with a history of BPH, HTN, anxiety, HLD, [place] and CVA presented to the ED with complaints of dizziness and falls. Patient states he has been getting dizzy and loosing his balance and falling off and on for the last 3 months. Vertigo, orthostatic hypotension Head CT reviewed and shows a Stable right frontoparietal high convexity encephalomalacia consistent with remote MCA territory infarct -Orthostatic BP -Continue ISABEL hose, reminded to use before out of bed -PT ordered, recommends SNF -Meclizine prn -will decrease Geodon dose likely causing side effects -monitor HTN, labile -Blood pressure elevated -Restart amlodipine low dose Add as needed clonidine for systolic blood pressure greater than 160 and diastolic blood pressure greater than 90 -Monitor blood pressure, adjust medication as needed HLD, chronic -Resume home medication, atorvastatin -cardiac diet Physical deconditioning/ Abnormal gate - PT consulted and is following -Vit B12: 322 - Vit D : 13.7 -check TSH Depression/Bipolar Disorder chronic -continue venlafaxine -Decrease Geodon dose, likely causing side effect for dizziness/vertigo Monitor mental status DVT prophylaxis: SCDs/TEDs, patient ambulatory Code Status: Full code Discussed Condition With: Patient, nurse
[2018-04-01] MEDS: Aspirin 325 MG Tablet PO SCH (09:23)
[2018-04-01] MEDS: amLODIPine 5 MG Tablet PO SCH (09:23)
[2018-04-01] MEDS: Venlafaxine XR 75 MG Capsule PO SCH ×2 (09:24→20:56)
[2018-04-01 11:53] LABS: Baso % (Auto) 0.4 % (0.0-2.0); Eos % (Auto) 0.4 % (0.0-4.0); Hemoglobin 12.7 gm/dL (13.0-17.0); Lymph # (Auto) 1.2 th/mm3 (1.0-4.8); Lymph % (Auto) 13.3 % (9.0-44.0); Mean Corpuscular HGB Conc 32.7 % (32.0-36.0); Mean Corpuscular Hemoglobin 27.7 pg (27.0-34.0); Mean Corpuscular Volume 84.8 fL (80.0-100.0); Mean Platelet Volume 7.3 fL (7.0-11.0); Mono # (Auto) 1.1 th/mm3 (0.0-0.9); Mono % (Auto) 12.3 % (0.0-8.0); Neut # (Auto) 6.5 th/mm3 (1.8-7.7); Neut % (Auto) 73.6 % (16.0-70.0); Platelet Count 296 th/mm3 (150-450); Red Cell Distribution Width 15.6 % (11.6-17.2); White Blood Count 8.8 th/mm3 (4.0-11.0)
[2018-04-01 12:16] LABS: Magnesium 1.6 mg/dL (1.5-2.5); Potassium 3.7 meq/L (3.5-5.1)
[2018-04-01] MEDS: Finasteride 5 MG Tablet PO SCH (20:57)
[2018-04-02 07:22] LABS: Calcium 9.3 mg/dL (8.5-10.1); Carbon Dioxide 26.3 meq/L (21.0-32.0); Magnesium 1.7 mg/dL (1.5-2.5); Potassium 3.9 meq/L (3.5-5.1)
[2018-04-02 07:29] LABS: Thyroid Stimulating Hormone 3.18 uIU/mL (0.358-3.740)
[2018-04-02] MEDS: Sod Chloride 0.9% Inj 1,000 ML IV.CONT SCH (08:04)
[2018-04-02] MEDS: Acetaminophen 325 MG Tablet PO PRN (08:24)
[2018-04-02] MEDS: Aspirin 325 MG Tablet PO SCH (08:25)
[2018-04-02] MEDS: amLODIPine 5 MG Tablet PO SCH (08:25)
[2018-04-02] MEDS: Venlafaxine XR 75 MG Capsule PO SCH (08:25)
--- NOTE | 2018-04-02 15:35 | P.DS ---
Date of admission: 03/29/18 13:56 Primary care physician: Justice Sotelo MD Attending physician on discharge: Alis Mercer Anticipated date of discharge: 04/02/18 Brief History from admission: 63 y/o male with a history of BPH, HTN, HLD, UT and CVA presented to the ED with complaints of dizziness and falls. Patient states he has been getting dizzy and loosing his balance and falling off and on for the last 3 months. He says for the past 2 days he has been falling more frequent. He denies any associated chest pain, sob, fever, chills, or headaches. He denies any LOC or hitting her head. Patient does walk with a walker and lives at an [facility]. Patient update on day of discharge: Patient is doing well. No acute concerns. Patient reports no lightheadedness or dizziness when he walks around or goes to the bathroom. He tries to get up slowly. No fever or chills. DS: Medications - Discharge Medications Prescriptions: aspirin [Aspirin Low Dose] 81 mg PO DAILY #30 tab losartan 25 mg PO DAILY #30 tab ziprasidone HCl [Geodon] 20 mg PO TID #90 cap DS: Summary Hospital Course: 63 y/o male with a history of BPH, HTN, anxiety, HLD, UT and CVA presented to the ED with complaints of dizziness and falls. Patient states he has been getting dizzy and loosing his balance and falling off and on for the last 3 months. Vertigo, orthostatic hypotension Head CT reviewed and shows a Stable right frontoparietal high convexity encephalomalacia consistent with remote MCA territory infarct -Orthostatic BP -Continue ISABEL hose, reminded to use before out of bed -PT ordered, recommends SNF -Meclizine prn -will decrease Geodon dose likely causing side effects -monitor Hypertension -Will d/c patient on Amlodipine 5mg qday and Losartan 25mg Qday. Will need to adjust by PCP -Try to avoid Clonidine PO. HLD, chronic -Resume home medication, atorvastatin -cardiac diet Physical deconditioning/ Abnormal gate - PT consulted and is following -Vit B12: 322 - Vit D : 13.7 -check TSH Depression/Bipolar Disorder chronic -continue venlafaxine -Decrease Geodon dose, likely causing side effect for dizziness/vertigo Monitor mental status DVT prophylaxis: SCDs/TEDs, patient ambulatory - Time Spent with Patient Total time spent providing and/or coordinating discharge services: Less than 30 minutes - Quality: VTE Deep Vein Thrombosis/Pulmonary Embolism Present on Admission: No Exam Vital signs: Vital Signs 04/01/18 16:00 04/01/18 20:00 04/02/18 00:00 Temperature 98.6 F 97.7 F 97.8 F Pulse Rate 96 H 92 H 84 Respiratory Rate 18 16 16 Blood Pressure 141/75 H 139/86 149/78 H Pulse Oximetry 97 96 95 04/02/18 04:00 04/02/18 08:00 Temperature 98.9 F 98.2 F Pulse Rate 75 104 H Respiratory Rate 16 17 Blood Pressure 133/75 185/93 H Pulse Oximetry 97 94 L Intake & Output 04/01/18 04/02/18 04/02/18 18:59 06:59 18:59 Intake Total 960 / 960 360 / 360 Balance 960 / 960 360 / 360 Weight 80.2 kg Intake: Oral 960 / 960 360 / 360 Other: # Voids 5 2 Date of Last Bowel Movement 03/30/18 04/30/18 04/02/18 Narrative: GENERAL: Alert, NAD. SKIN: Warm and dry. HEAD: Normocephalic. EYES: No scleral icterus. No injection or drainage. NECK: Supple, trachea midline. No JVD or lymphadenopathy. CARDIOVASCULAR: Regular rate and rhythm without murmurs, gallops, or rubs. RESPIRATORY: Breath sounds equal bilaterally. No accessory muscle use. GASTROINTESTINAL: Abdomen soft, non-tender, nondistended. MUSCULOSKELETAL: No cyanosis, or edema. BACK: Nontender without obvious deformity. No CVA tenderness. Results Procedures completed during hospitalization: None. Labs on day of discharge: Labs from last 24 hours 04/02/18 05:56 Sodium 140 Potassium 3.9 Chloride 103 Carbon Dioxide 26.3 Anion Gap 11 BUN 16 Creatinine 1.01 Estimated GFR 73 L Random Glucose 97 Calcium 9.3 Magnesium 1.7 TSH 3.180 - Impressions ITS Impressions Abdomen/Pelvis CT 03/27/18 17:51 CONCLUSION: 1. No acute CT abnormality in the abdomen or pelvis. 2. Left lung base atelectasis/scarring. 3. Small to moderate amount of stool throughout the colon consistent with some degree of constipation. Cervical Spine CT 03/27/18 17:51 CONCLUSION: 1. No acute fracture. 2. Stable subtle anterolisthesis of C4 on C5 and posterolisthesis of C5 on C6, presumably secondary to degenerative facet arthrosis. 3. Advanced multilevel degenerative spondylosis of the cervical spine, as above. Chest X-Ray 03/27/18 17:51 CONCLUSION: 1. Improving aeration in the left lung base with some minimal residual linear density possibly representing resolving infiltrate or atelectasis. 2. Heart size is borderline prominent but well compensated. Head CT 03/27/18 17:51 CONCLUSION: 1. Stable right frontoparietal high convexity encephalomalacia consistent with remote MCA territory infarct. 2. Stable senescent changes with mild to moderate periventricular white matter ischemic denomination. 3. No acute intracranial abnormality or significant interval change. . Discharge Plan - Discharge Disposition Patient Disposition: Discharge to SNF - Discharge Condition Condition: Good - Discharge Order Discharge Orders: Discharge Order (Routine); Ordered 04/02/18 Ordered By: Alis Mercer - Discharge Details Anticipated Discharge Date: 04/02/18 - Physicians Team Primary Care Provider: Justice Sotelo Attending Provider: Alis Mercer [facility]iders: [facility] ; [facility] ; [facility] ; [facility]ency
== END 2018-04-02 12:46 ==
LOC: NEPC 17:18 → NEDA 17:18 → NEPFCDU 23:40 → N06 03-29 20:30
PROVIDERS: ADMIT Hospitalist; ATTEND Hospitalist